=== PATIENT | female | born 1950 | race African-American/Black ===

== ENCOUNTER 2024-03-21 22:17 | Inpatient (IN) | payer OTHER ==
[~2024-03-21] VITALS: Ht 167.6 cm; Wt 88.9 kg
[~2024-03-21 22:17] MED LIST: AMLO1TAB21 PO; ATOR80TA PO; CLOP75TA28 PO; PANT40TA2 PO; SERT-160 PO
[2024-03-21 22:35] VITALS: PULSE 98; RESP 18; O2SAT 98
--- NOTE | 2024-03-21 22:36 | ED.PDOC ---
SOB-HPI HPI Comments 73-year-old female who came to ER via EMS for chest pains. Patient does have history of hypertension, diabetes, and CVA. States since last night, she has been having intermittent episodes of substernal chest pains, nonradiating, associated shortness of breath, abdominal pain. Upon arrival saturating at 75% on room air, patient was given albuterol Atrovent nebulization patient provided his slight relief. 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 Family History Family History: Reviewed,noncontributory to illness Social History Smoker: Non-Smoker Alcohol: Denies ETOH Use Drugs: Denies Drug Use Lives In: Home Constitutional: denies: chills, diaphoresis, fatigue, fever, malaise, sweats, weakness, others EENTM: denies: blurred vision, double vision, ear bleeding, ear discharge, ear drainage, ear pain, ear ringing, eye pain, eye redness, hearing loss, mouth pain, mouth swelling, nasal discharge, nose bleeding, nose congestion, nose pain, photophobia, tearing, throat pain, throat swelling, voice changes, others Respiratory: reports: SOB at rest, shortness of breath; denies: cough, hemoptysis, orthopnea, SOB with excertion, stridor, wheezing, others Cardiovascular: reports: chest pain; denies: dizzy spells, diaphoresis, Dyspnea on exertion, edema, irregular heart beat, left arm pain, lightheadedness, palpitations, PND, syncope, others Gastrointestinal: reports: abdominal pain; denies: abdomen distended, blood streaked bowels, constipated, diarrhea, dysphagia, difficulty swallowing, hematemesis, melena, nausea, poor appetite, poor fluid intake, rectal bleeding, rectal pain, vomiting, others Genitourinary: denies: abnormal vagina bleeding, burning, dyspareunia, dysuria, flank pain, frequency, hematuria, incontinence, pain, , vagina discharge, urgency, others Neurological: denies: dizziness, fainting, headache, left sided numbness, left sided weakness, numbness, paresthesia, pre-existing deficit, right sided numbness, right sided weakness, seizure, speech problems, tingling, tremors, weakness, others Musculoskeletal: denies: back pain, gout, joint pain, joint swelling, muscle pain, muscle stiffness, neck pain, others Integumetry: denies: bruises, change in color, change in hair/nails, dryness, laceration, lesions, lumps, rash, wounds, others Allergic/Immunocompromised: denies: Difficulty Healing, Frequent Infections, Hives, Itching, others Hematologic/Lymphatic: denies: anemia, blood clots, easy bleeding, easy bruising, swollen glands, others Endocrine: denies: excessive hunger, excessive sweating, excessive thirst, excessive urination, flushing, intolerance to cold, intolerance to heat, unexplained weight gain, unexplained weight loss, others Psychiatric: denies: anxiety, bipolar disorder, depression, hopeless, panic disorder, schizophrenia, sleepless, suicidal, others Physical Exam General Appearance: No Apparent Distress, Normal HEENT: Normal ENT Inspection, Pharynx Normal, TMs Normal Neck: Full Range of Motion, Non-Tender, Normal, Normal Inspection Respiratory: Chest Non-Tender, Decreased Breath Sounds, No Accessory Muscle Use, Respiratory Distress Cardiovascular: No Edema, No JVD, No Murmur, No Gallop, Normal Peripheral Pulses, Regular Rate/Rhythm Breast Exam: Deferred Gastrointestinal: No Organomegaly, Non Tender, No Pulsatile Mass, Normal Bowel Sounds, Soft Genitalia: Deferred Pelvic: Deferred Rectal: Deferred Extremities: No calf tenderness, Normal capillary refill, Normal inspection, N ormal range of motion, Non-tender, No pedal edema Musculoskeletal : Apperance: Normal Neurologic: Alert, spinner continuous II-XII nml as Tested, No Motor Deficits, Normal Affect, Normal Mood, No Sensory Deficits Cerebellar Function: Normal Reflexes: Normal Skin: Dry, Normal Color, Warm Lymphatic: No Adenopathy Was a procedure done? Was a procedure done?: No Differential Dx Differential Diagnosis: Asthma, Bronchitis, CHF, COPD, Myocardial infarction, Panic Attack, Pneumonia, Respiratory Distress, URI X-Ray, Labs, Meds, VS Vital Signs Date Time Temp Pulse Resp B/P (MAP) Pulse Ox O2 Delivery O2 Flow Rate FiO2 03/22/24 01:55 94 18 116/75 03/22/24 01:38 102 22 116/75 03/22/24 01:17 116/75 03/22/24 01:00 100 22 116/75 (89) 97 03/22/24 00:58 94 03/21/24 23:06 98 20 101/59 (73) 95 03/21/24 22:35 98 18 98 Nasal Cannula* 6 44 03/21/24 22:35 97.9 98 18 105/52 (69) 98 97.9 03/21/24 22:20 98.7 105 24 125/74 (91) 89 03/21/24 22:17 108 Lab Test 03/22/24 01:25 03/22/24 00:26 03/21/24 23:40 03/21/24 23:22 Range/Units Troponin I High Sensitivity Pending 460 *H </=34 ng/L B-Type Natriuretic Peptide Pending Blood Gas Specimen Type Venous Blood Gas Sample Site Vbg - n/a Blood Gas Patient Temperature 37.0 Arterial Blood Date Drawn [id number] Temo Test N/a Venous Blood pH 7.368 7.320-7.430 Venous Blood pCO2 at Patient Temp 39.1 38.0-54.0 mmHg Venous Blood pO2 at Patient Temp < 36.5 23.0-48.0 mmHg Venous Blood HCO3 22.0 22.0-29.0 mmol/L Venous Blood Base Excess -3.0 L -2.0-3.0 mmol/L Blood Gas Modality Oxymizer FiO2 % 100.0 Urine Color Yellow Yellow Urine Clarity Clear Clear Urine pH 5.5 5.0-9.0 Urine Specific [place] 1.029 1.001-1.035 Urine Protein Trace H Negative Urine Ketones 1+ H Negative Urine Blood Negative Negative /uL Urine Nitrite Negative Negative Urine Bilirubin Negative Negative Urine Urobilinogen Normal Negative mg/dL Urine Leukocyte Esterase Negative Negative /uL Urine RBC 1 0 - 4 /hpf Urine WBC <1 0 - 5 /hpf Urine Squamous Epithelial Cells Few <5 /hpf Urine Calcium Oxalate Crystals Few None Seen Urine Bacteria None seen None Seen /hpf Urine Hyaline Casts Few 0 - 2 /lpf Urine Mucus Few None Seen Urine Glucose Normal Normal mg/dL Test 03/21/24 22:27 Range/Units White Blood Count 9.3 4.4-10.8 10^3/uL Red Blood Count 4.54 4.0-5.20 10^6/uL Hemoglobin 12.5 12.2-16.2 g/dL Hematocrit 38.8 36.0-46.0 % Mean Corpuscular Volume 85.5 80.0-100.0 fL Mean Corpuscular Hemoglobin 27.4 L 28.0-32.0 pg Mean Corpuscular Hemoglobin Concent 32.1 32.0-36.0 g/dL Red Cell Distribution Width 18.2 H 11.8-14.3 % Platelet Count 141 140-450 10^3/uL Mean Platelet Volume 8.1 6.9-10.8 fL Neutrophils (%) (Auto) 68.5 37.0-80.0 % Lymphocytes (%) (Auto) 22.5 10.0-50.0 % Monocytes (%) (Auto) 7.5 0.0-12.0 % Eosinophils (%) (Auto) 1.0 0.0-7.0 % Basophils (%) (Auto) 0.5 0.0-2.0 % Neutrophils # (Auto) 6.4 1.6-8.6 10 ^3/uL Lymphocytes # (Auto) 2.1 0.4-5.4 10 ^3/uL Monocytes # (Auto) 0.7 0-1.3 10 ^3/uL Eosinophils # (Auto) 0.1 0-0.8 10 ^3/uL Basophils # (Auto) 0 0-0.2 10 ^3/uL Nucleated Red Blood Cells 0.1 % Sodium Level 143 136-145 mmol/L Potassium Level 3.6 3.5-5.1 mmol/L Chloride Level 105 98-107 mmol/L Carbon Dioxide Level 26 20-31 mmol/L Anion Gap 12 5-15 Blood Urea Nitrogen 15 9-23 mg/dL Creatinine 1.55 H 0.550-1.02 mg/dL Glomerular Filtration Rate Calc 36 >90 mL/min BUN/Creatinine Ratio 9.7 L 10.0-20.0 Serum Glucose 127 H 74-106 mg/dL Calcium Level 11.3 H 8.7-10.4 mg/dL Total Bilirubin 0.5 0.2-1.0 mg/dL Aspartate Amino Transferase (AST) 15 13-40 U/L Alanine Aminotransferase (ALT) 19 7-40 U/L Alkaline Phosphatase 90 46-116 U/L Troponin I High Sensitivity 519 *H </=34 ng/L Total Protein 7.1 5.7-8.2 g/dL Albumin 4.3 3.2-4.8 g/dL Current Medications Medications (Trade) Dose Ordered Sig/Shawn Route Start Time Stop Time Status Last Admin Furosemide (Lasix Injection) 40 mg ONCE ONCE IV 03/22/24 01:15 03/22/24 01:16 DC 03/22/24 01:17 Morphine Sulfate 4 mg ONCE ONCE IV 03/22/24 01:30 03/22/24 01:32 DC 03/22/24 01:38 Ondansetron HCl (Zofran) 4 mg ONCE ONCE IV 03/22/24 01:30 03/22/24 01:32 DC 03/22/24 01:38 Time of 1ST Reevaluation: 22:31 Reevaluation 1ST: Unchanged Patient Education/Counseling: Diagnosis, Treatment Family Education/Counseling: No Family Present Departure 1 Departure Time of Disposition: 02:03 (Section Authorization [id number] by Dr Elder for admission here at [facility].Patient presented with chest pain that was concerning for possible STEMI, ACS, PE, Pneumonia, Muscle Strain, COPD, Dissection. Data: 1. I ordered and reviewed the result of at least 3 labs including a CBC, BMP, and Troponin. 2. I independently interpreted the following tests: EKG which shows sinus arrhythmia and Chest X-ray which shows vascular congestion.Risk:This patient has a high risk of morbidity due to further diagnostic testing or treatment and may suffer from an acute cardiac or respiratory disorder. Workup reveals NSTEMI and concern for CHF and patient should be admitted for further workup and possible expert consultation. ) Impression: Primary Impression: Acute chest pain Additional Impressions: Dyspnea Qualified Codes: R06.02 - Shortness of breath NSTEMI (non-ST elevated myocardial infarction) Disposition: 09 ADMITTED INPATIENT Admit to: Med Surg Condition: Serious Critical Care Note Critical Care Time?: Yes (35 min-critical care time only) Critical care comment: Acute chest pain Authorized and Performed by: Dmitry Francis MD Total critical care time: Approximately 36 minutes Due to a high probability of clinically significant, life threatening deterioration, the patient required my highest level of preparedness to intervene emergently and I personally spent this critical care time directly and personally managing the patient. This critical care time included obtaining a history; examining the patient; pulse oximetry; ordering and review of studies; arranging urgent treatment with development of a management plan; evaluation of patient's response to treatment; frequent reassessment; and, discussions with other providers. This critical care time was performed to assess and manage the high probability of imminent, life-threatening deterioration that could result in multi-organ failure. It was exclusive of separately billable procedures and treating other p atients and teaching time. Please see my other sections and the rest of the note for further information on patient assessment and treatment. Stability Stability form required: No Heart Score Heart Score: Heart Score Response (Comments) Value History Moderate Suspicious 1 EKG Repolarization Disturb 1 Age >65 2 Risk Factors >3 or Hx ASHD 2 Troponin Normal limit 0 Total 6 I personally scribed for DMITRY FRANCIS MD ([email or web address]) on 03/21/24 at 22:36. Electronically submitted by Krystian Portillo ([email or web address]). DMITRY FRANCIS MD Mar 21, 2024 22:36
[2024-03-21 22:41] LABS: Basophils # (auto) 0 10 ^3/uL (0-0.2); Basophils % (auto) 0.5 % (0.0-2.0); Eosinophils # (auto) 0.1 10 ^3/uL (0-0.8); Hematocrit 38.8 % (36.0-46.0); Hemoglobin 12.5 g/dL (12.2-16.2); Lymphocytes # (auto) 2.1 10 ^3/uL (0.4-5.4); Lymphocytes % (auto) 22.5 % (10.0-50.0); Mean Corpuscular Hemoglobin 27.4 pg (28.0-32.0); Mean Corpuscular Hgb Conc. 32.1 g/dL (32.0-36.0); Mean Corpuscular Volume 85.5 fL (80.0-100.0); Monocytes # (auto) 0.7 10 ^3/uL (0-1.3); Monocytes % (auto) 7.5 % (0.0-12.0); Neutrophils # (auto) 6.4 10 ^3/uL (1.6-8.6); Neutrophils % (auto) 68.5 % (37.0-80.0); Nucleated Red Blood Cells % 0.1 %; Platelet Count (auto) 141 10^3/uL (140-450); Red Blood Cells 4.54 10^6/uL (4.0-5.20); Red Cell Distribution Width 18.2 % (11.8-14.3); White Blood Cell 9.3 10^3/uL (4.4-10.8)
[2024-03-21 22:57] LABS: Alanine Aminotransferase 19 U/L (7-40); Albumin 4.3 g/dL (3.2-4.8); Alkaline Phosphatase 90 U/L (46-116); Anion Gap 12 (5-15); Aspartate Aminotransferase 15 U/L (13-40); BUN/Creatinine Ratio 9.7 (10.0-20.0); Blood Urea Nitrogen 15 mg/dL (9-23); Carbon Dioxide 26 mmol/L (20-31); Chloride 105 mmol/L (98-107); Potassium 3.6 mmol/L (3.5-5.1); Sodium 143 mmol/L (136-145)
[2024-03-21 22:58] LABS: Bilirubin, Total 0.5 mg/dL (0.2-1.0); Total Protein 7.1 g/dL (5.7-8.2)
[2024-03-21 22:59] LABS: Calcium 11.3 mg/dL (8.7-10.4); Glucose 127 mg/dL (74-106)
[2024-03-22] VITALS (11 sets, daily range): BP systolic 113–142; BP diastolic 70–79; PULSE 80–100; RESP 16–28; TEMP 98.4; O2SAT 87–100
[2024-03-22 00:06] LABS: Urine Bacteria None Seen /hpf (None Seen)
--- NOTE | 2024-03-22 00:08 | ECG ---
[facility] Test Date: 2024-03-21 Test Time: 22:16:56 Pat Name: MARZENA CANTOR Department: ER Room: [address] [place] [address] Gender: F Air Conditioning Engineer: ER : 1950 Requested By: DMITRY CONDON Order Number: [id number] Reading MD: Pawan Mattson Measurements Intervals [place] Rate: 108 P: 56 SD: 146 QRS: 23 QRSD: 81 T: 28 QT: 349 QTc: 468 Interpretive Statements Sinus tachycardia Multiform ventricular premature complexes Aberrant conduction of SV complex(es) Probable left atrial enlargement Abnormal R-wave progression, late transition Inferior infarct, acute (LCx) Electronically Signed On 03-28-2024 12:15:38 PST by Pawan Mattson Please click the below link to view image of tracing.
--- NOTE | 2024-03-22 00:09 | DVH ---
EXAM: XY CHEST PORTABLE CLINICAL HISTORY: sob TECHNIQUE: Single AP view of the chest WID: COMPARISON: None FINDINGS: Lines and tubes: None Chest: There is mild cardiomegaly and pulmonary vascular congestion. No pleural effusion, pneumothorax, or consolidation. The osseous structures are grossly intact. IMPRESSION: Mild cardiomegaly and mild pulmonary vascular congestion.
[2024-03-22 00:56] LABS: Urine Blood Negative /uL (Negative); Urine Clarity Clear (Clear); Urine Color Yellow (Yellow); Urine Hyaline Cast FEW /lpf (0 - 2); Urine Mucus FEW (None Seen); Urine Protein, UAD TRACE (Negative); Urine Specific Gravity 1.029 (1.001-1.035); Urine Urobilinogen Normal (Negative); Urine WBC <1 /hpf (0 - 5); Urine pH 5.5 (5.0-9.0)
[2024-03-22] MEDS: FUROSEMIDE 40 MG/4 ML VIAL IV ONE (01:17)
[2024-03-22] MEDS: MORPHINE SULFATE 4 MG/ML SYR/VIAL IV ONE (01:38)
[2024-03-22] MEDS: IPRATROPIUM BROM 0.5 MG/2.5ML INH SOL ONE (01:38)
[2024-03-22] MEDS: ONDANSETRON HCL 4 MG/2 ML VIAL IV ONE ×2 (01:38→18:18)
[2024-03-22] MEDS: ALBUTEROL SULF 2.5 MG/0.5ML(0.5%) NEB SOLN ONE (01:38)
[2024-03-22] MEDS: IPRATROPIUM BROM 0.5 MG/2.5ML INH SOL NEB ONE (01:42)
[2024-03-22] MEDS: ALBUTEROL SULF 2.5 MG/0.5ML(0.5%) NEB SOLN NEB ONE (01:42)
[2024-03-22] MEDS ORDERED: ACETAMINOPHEN 325 MG TAB PO PRN (02:30)
[2024-03-22] MEDS ORDERED: DOCUSATE SOD 100 MG CAP PO PRN (02:30)
[2024-03-22] MEDS: ASPirin 81 mg TAB PO ONE (02:50)
--- NOTE | 2024-03-22 02:55 | DVHHP2 ---
History of Present Illness Reason for Visit: Acute chest pain History of Present Illness The patient is a 73-year-old female with past medical history of diabetes mellitus, hyperlipidemia, hypertension, and CVA with left-sided residual presented to [facility] ED with complaint of chest pain. Patient reports symptoms progressively get worse with nonradiating substernal chest, abdominal pain, associated shortness of breath, getting worse that prompted this visit. Patient was seen and evaluated in the ED, laboratory data shows WBC 9.3, platelets 141, sodium 143, potassium 3.6, BUN 15, creatinine 1.55, glucose 127, calcium 11.3, BNP 463.70, troponin 568. Chest x-ray revealing mild cardiomegaly and mild pulmonary vascular congestion. Patient was given IV Lasix, breathing treatment, please see medication orders section in the computer. On my assessment, patient denied chest pain at this moment, no headache, no dizziness, no diaphoresis, no shortness of breath, no nausea, no vomiting, no fever, no chills. Patient was admitted for further evaluation and medical management. Past Medical History CVA (Left-sided residual), DM, HTN, HLD Past Surgical History Denies all surgeries Family History Reviewed, noncontributory to the management of this case. Past Social History The patient lives at home, denies smoking, alcohol or illicit drugs abuse. Review of Systems Constitutional: Yes: Weakness; No: Fever, Chills, Sweats, Malaise, Other Eyes: No: Pain, Vision change, Conjunctivae inflammation, Eyelid inflammation, Other, Redness ENT: No: Ear pain, Ear discharge, Nose pain, Nose discharge, Nose congestion, Mouth pain, Mouth swelling, Throat pain, Throat swelling, Other Respiratory: Shortness of breath, Other (SOB at rest); No: Cough, Dry, SOB with excertion, Wheezing, Hemoptysis, Pleuritic Pain, Sputum, Wheezing Cardiovascular: Chest Pain; No: Palpitations, Orthopnea, Paroxysmal Noc. Dyspnea, Edema, Lt Headedness, Other Gastrointestinal: Abdominal Pain; No: Nausea, Vomiting, Diarrhea, Constipation, Melena, Hematochezia, Other Genitourinary: No Dysuria, No Frequency, No Incontinence, No Hematuria, No Retention, No Other Musculoskeletal: No: other, neck pain, shoulder pain, arm pain, back pain, hand pain, leg pain, foot pain Skin: No: Rash, Lesions, Jaundice, Bruising, Other Neurological: No: Weakness, Numbness, Incoordination, Change in speech, Confusion, Seizures, Other Allergies: Coded Allergies: NO KNOWN ALLERGIES (Unverified , 03/21/24) Medications Current Medications Medications Dose Ordered Sig/Shawn Route Start Time Stop Time Status Last Admin Dose Admin Albuterol 2.5 mg Q4HPRN PRN NEB 03/22/24 02:30 Ipratropium [place] 0.5 mg Q4HPRN PRN NEB 03/22/24 02:30 Furosemide 40 mg DAILY IV 03/22/24 10:00 Atorvastatin Calcium 40 mg HS PO 03/22/24 22:00 Carvedilol 3.125 mg Q12HR PO 03/22/24 10:00 Clopidogrel Bisulfate 75 mg DAILY PO 03/22/24 10:00 Aspirin 81 mg DAILY PO 03/22/24 10:00 Sodium Chloride 10 ml Q8HR IV 03/22/24 06:00 Acetaminophen/ Hydrocodone Bitart 1 tab Q4HP PRN PO 03/22/24 02:30 Ondansetron HCl 4 mg Q4HP PRN IV 03/22/24 02:30 Docusate Sodium 100 mg BIDPRN PRN PO 03/22/24 02:30 Acetaminophen 650 mg Q6HP PRN PO 03/22/24 02:30 Exam Vital Signs Vital Signs Date Time Temp Pulse Resp B/P (MAP) Pulse Ox O2 Delivery O2 Flow Rate FiO2 03/22/24 02:03 99 03/22/24 01:55 18 116/75 03/22/24 01:00 97 03/21/24 22:35 Nasal Cannula* 6 44 03/21/24 22:35 97.9 97.9 General Appearance: Alert, Oriented X3, Cooperative, No acute distress Respiratory: Clear to auscultation, Normal air movement Cardiovascular: Regular rate, Normal S1, Normal S2, No murmurs Abdominal: Normal bowel sounds, Soft, No tenderness, No hepatospenomegaly, No masses Extremities: No clubbing, No cyanosis, No edema, Normal pulses, No tenderness/swelling Skin: No rashes, No breakdown, No significant lesion Neuro: Normal speech, Normal tone, Sensation intact, Cranial nerves 3-12 NL, Reflexes 2+, Other (Generalized weakness) Psych/Mental Status: Mental status NL, Mood NL Labs/Xrays Labs Test 03/22/24 01:25 03/22/24 00:26 03/21/24 23:40 03/21/24 22:27 Range/Units Troponin I High Sensitivity 568 *H </=34 ng/L B-Type Natriuretic Peptide 463.70 0-100 pg/mL Blood Gas Specimen Type Venous Blood Gas Sample Site Vbg - n/a Blood Gas Patient Temperature 37.0 Arterial Blood Date Drawn [id number] Temo Test N/a Venous Blood pH 7.368 7.320-7.430 Venous Blood pCO2 at Patient Temp 39.1 38.0-54.0 mmHg Venous Blood pO2 at Patient Temp < 36.5 23.0-48.0 mmHg Venous Blood HCO3 22.0 22.0-29.0 mmol/L Venous Blood Base Excess -3.0 L -2.0-3.0 mmol/L Blood Gas Modality Oxymizer FiO2 % 100.0 Urine Color Yellow Yellow Urine Clarity Clear Clear Urine pH 5.5 5.0-9.0 Urine Specific [place] 1.029 1.001-1.035 Urine Protein Trace H Negative Urine Ketones 1+ H Negative Urine Blood Negative Negative /uL Urine Nitrite Negative Negative Urine Bilirubin Negative Negative Urine Urobilinogen Normal Negative mg/dL Urine Leukocyte Esterase Negative Negative /uL Urine RBC 1 0 - 4 /hpf Urine WBC <1 0 - 5 /hpf Urine Squamous Epithelial Cells Few <5 /hpf Urine Calcium Oxalate Crystals Few None Seen Urine Bacteria None seen None Seen /hpf Urine Hyaline Casts Few 0 - 2 /lpf Urine Mucus Few None Seen Urine Glucose Normal Normal mg/dL White Blood Count 9.3 4.4-10.8 10^3/uL Red Blood Count 4.54 4.0-5.20 10^6/uL Hemoglobin 12.5 12.2-16.2 g/dL Hematocrit 38.8 36.0-46.0 % Mean Corpuscular Volume 85.5 80.0-100.0 fL Mean Corpuscular Hemoglobin 27.4 L 28.0-32.0 pg Mean Corpuscular Hemoglobin Concent 32.1 32.0-36.0 g/dL Red Cell Distribution Width 18.2 H 11.8-14.3 % Platelet Count 141 140-450 10^3/uL Mean Platelet Volume 8.1 6.9-10.8 fL Neutrophils (%) (Auto) 68.5 37.0-80.0 % Lymphocytes (%) (Auto) 22.5 10.0-50.0 % Monocytes (%) (Auto) 7.5 0.0-12.0 % Eosinophils (%) (Auto) 1.0 0.0-7.0 % Basophils (%) (Auto) 0.5 0.0-2.0 % Neutrophils # (Auto) 6.4 1.6-8.6 10 ^3/uL Lymphocytes # (Auto) 2.1 0.4-5.4 10 ^3/uL Monocytes # (Auto) 0.7 0-1.3 10 ^3/uL Eosinophils # (Auto) 0.1 0-0.8 10 ^3/uL Basophils # (Auto) 0 0-0.2 10 ^3/uL Nucleated Red Blood Cells 0.1 % Sodium Level 143 136-145 mmol/L Potassium Level 3.6 3.5-5.1 mmol/L Chloride Level 105 98-107 mmol/L Carbon Dioxide Level 26 20-31 mmol/L Anion Gap 12 5-15 Blood Urea Nitrogen 15 9-23 mg/dL Creatinine 1.55 H 0.550-1.02 mg/dL Glomerular Filtration Rate Calc 36 >90 mL/min BUN/Creatinine Ratio 9.7 L 10.0-20.0 Serum Glucose 127 H 74-106 mg/dL Calcium Level 11.3 H 8.7-10.4 mg/dL Total Bilirubin 0.5 0.2-1.0 mg/dL Aspartate Amino Transferase (AST) 15 13-40 U/L Alanine Aminotransferase (ALT) 19 7-40 U/L Alkaline Phosphatase 90 46-116 U/L Total Protein 7.1 5.7-8.2 g/dL Albumin 4.3 3.2-4.8 g/dL PATIENT: MARZENA CANTOR ACCT: [id number] UNIT: [id number] : 1950 LOC: ER ROOM / BED: / AGE / SEX: 73 / F ADM STATUS: REG ER SERVICE [id number] ORDERING PHYSICIAN: DMITRY CONDON MD PROCEDURE(s): CXRP - CHEST PORTABLE REASON: sob ORDER NUMBER(s): [id number], ACCESSION NUMBER(s): [id number] EXAM: XY CHEST PORTABLE CLINICAL HISTORY: sob TECHNIQUE: Single AP view of the chest WID: COMPARISON: None FINDINGS: Lines and tubes: None Chest: There is mild cardiomegaly and pulmonary vascular congestion. No pleural effusion, pneumothorax, or consolidation. The osseous structures are grossly intact. IMPRESSION: Mild cardiomegaly and mild pulmonary vascular congestion. Assessment/Plan Assessment/Plan Acute chest pain Acute respiratory distress Acute renal injury NSTEMI (non-ST elevated myocardial infarction) Acute exacerbation of congestive heart failure Plan 1. Admit to telemetry unit 2. Breathing treatment 3. Pain control management 4. Management of fluids and electrolytes 5. Consultation for Cardiology 6. Diagnostic tests chest x-ray 7. DVT prophylaxis-on aspirin 8. Repeat labs CBC, CMP in a.m. 9. Continue with current medical management 10. Treatment plan discussed with patient and RN. Patient verbalized understanding. Plan discussed with: Patient, Other (RN) My Orders Orders - DURAN COUGHLIN DNP Procedure Category Date Status Time Complete Blood Count LAB 03/22/24 Logged 04:00 Comprehensive LAB 03/22/24 Logged Metabolic Panel 04:00 Albuterol Medneb PHA 03/22/24 In Process (Ventolin Medneb) 02:30 Ipratropium Medneb PHA 03/22/24 In Process (Atrovent Medneb) 02:30 Furosemide Injection PHA 03/22/24 In Process (Lasix Injection) 10:00 Atorvastatin (Lipitor) PHA 03/22/24 In Process 22:00 Carvedilol Tablet PHA 03/22/24 In Process (Coreg Tablet) 10:00 Clopidogrel Bisulfate PHA 03/22/24 In Process (Plavix) 10:00 Aspirin Tablet PHA 03/22/24 In Process 10:00 * Cardiology Consult CONS 03/22/24 Transmitted 02:28 Allergies WIL 03/22/24 In Process 02:28 Code Status CODE 03/22/24 Transmitted 02:28 Sodium Chloride Lock PHA 03/22/24 In Process (Saline Lock Ns) 06:00 Oxygen Per Hour RT 03/22/24 Transmitted 02:28 Hydrocodone-Acet PHA 03/22/24 In Process 5/325mg Tab (Ary 02:30 Ondansetron Hcl PHA 03/22/24 In Process (Zofran) 02:30 Docusate Sodium PHA 03/22/24 In Process Capsule (Colace 02:30 Complete Blood Count LAB 03/23/24 Verified 04:00 Comprehensive LAB 03/23/24 Verified Metabolic Panel 04:00 Cardiac DIET 03/22/24 Transmitted Diet-2gna,Lofat,Lochol Breakfast Condition: Serious WIL 03/22/24 In Process 02:28 Acetaminophen Tablet PHA 03/22/24 In Process (Tylenol Tablet) 02:30 Bedrest With Bathroom WIL 03/22/24 In Process Privileg 02:28 Sequential WIL 03/22/24 In Process Compression Device Echo 2d Mode Cardiac US 03/22/24 Logged DOP 02:28 Troponin-I Hs LAB 03/22/24 Logged 02:28 Troponin-I Hs LAB 03/22/24 Logged 05:28 Problem List: (1) Acute chest pain (2) Acute respiratory distress (3) Acute renal injury (4) NSTEMI (non-ST elevated myocardial infarction) (5) Acute exacerbation of congestive heart failure Date of Service: Mar 22, 2024 Billing Provider: DURAN COUGHLIN DNP Common Visit Codes: 98796-PTNFMTE INP/OBS CARE (HIGH) DURAN COUGHLIN DNP Mar 22, 2024 02:55
[2024-03-22] MEDS ORDERED: NITROGLYCERIN 0.4 MG SL TAB SL PRN (03:00)
[2024-03-22] MEDS: IOHEXOL 350 MG/ML 100ML IJ ONE (03:13)
[2024-03-22 03:15] LABS: Basophils # (auto) 0 10 ^3/uL (0-0.2); Basophils % (auto) 0.3 % (0.0-2.0); Eosinophils # (auto) 0 10 ^3/uL (0-0.8); Eosinophils % (auto) 0.4 % (0.0-7.0); Hemoglobin 11.6 g/dL (12.2-16.2); Lymphocytes % (auto) 10.6 % (10.0-50.0); Mean Corpuscular Hemoglobin 28.1 pg (28.0-32.0); Mean Corpuscular Hgb Conc. 33.2 g/dL (32.0-36.0); Mean Corpuscular Volume 84.5 fL (80.0-100.0); Monocytes # (auto) 0.6 10 ^3/uL (0-1.3); Monocytes % (auto) 6.7 % (0.0-12.0); Neutrophils # (auto) 7.7 10 ^3/uL (1.6-8.6); Nucleated Red Blood Cells % 0.1 %; Platelet Count (auto) 133 10^3/uL (140-450); Red Blood Cells 4.15 10^6/uL (4.0-5.20); Red Cell Distribution Width 17.3 % (11.8-14.3); White Blood Cell 9.4 10^3/uL (4.4-10.8)
[2024-03-22 03:26] LABS: INR 1.18 (0.9-1.15); Prothrombin Time 12.4 sec (9.3-11.8)
[2024-03-22 03:28] LABS: Alanine Aminotransferase 18 U/L (7-40); Albumin 4.3 g/dL (3.2-4.8); Alkaline Phosphatase 85 U/L (46-116); Anion Gap 10 (5-15); Aspartate Aminotransferase 14 U/L (13-40); BUN/Creatinine Ratio 9.9 (10.0-20.0); Bilirubin, Total 0.4 mg/dL (0.2-1.0); Blood Urea Nitrogen 15 mg/dL (9-23); Carbon Dioxide 25 mmol/L (20-31); Chloride 107 mmol/L (98-107); Potassium 3.7 mmol/L (3.5-5.1); Sodium 142 mmol/L (136-145)
[2024-03-22 03:29] LABS: Total Protein 6.7 g/dL (5.7-8.2)
[2024-03-22] MEDS: MORPHINE SULFATE INJ 2 MG/ml SYRG IV PRN (03:29)
[2024-03-22 03:55] LABS: Calcium 10.7 mg/dL (8.7-10.4); Glucose 143 mg/dL (74-106)
[2024-03-22] MEDS ORDERED: HEPARIN DRIP/D5W 100UNITS/ML 250 ML IV SCH (04:45)
[2024-03-22] MEDS: HEPARIN SODIUM (PORCINE) 5000 UNITS/ML 1ML VIAL IV ONE (04:51)
--- NOTE | 2024-03-22 04:52 | DVH ---
Procedure: CT CT ANGIO CHEST CONTRAST Reason for study/Clinical History: chest pain, sob Comparison Study: Chest x-ray 05/22/2023 Exam Date: 03/22/2024 03:11 AM Radiation Dose Information: CT Dose: CTDI volume is 28.7 mGy. Dose-length product is 2414.82 mGy*cm Contrast: 100 cc Omnipaque 350 TECHNIQUE: After the uneventful administration of intravenous contrast intravenously, CT angiography of the chest per pulmonary embolism protocol imaging was performed through the chest. Coronal and sag ittal reformations were performed by the technologist. MIP reformatted images were obtained and revie wed. All CT scans at this medical facility are performed using dose modulation techniques as appropriate t o a performed exam including the following: Automated exposure control was utilized; adjustment of th e MA and/or KV according to patient size; and use of iterative reconstruction technique. FINDINGS: The thyroid gland is massively enlarged extending into the neck and substernally with multiple nodule s. The airway appears mildly narrowed. Evaluation of the pulmonary arteries demonstrates multiple filling defects in the right main pulmonar y artery, right upper lobe and right lower lobe segmental and subsegmental branches, and left upper l obe segmental and left lower lobe subsegmental branches compatible with pulmonary embolism. The main pulmonary artery estimates 3.8 cm. RV to LV ratio estimated 1.6 no pericardial effusion. Bibasilar cobb bsegmental atelectasis. Moderate pulmonary vascular congestion. No mediastinal or hilar adenopathy. The thoracic aorta appears normal in course and caliber. There is a moderate to large hiatal hernia. Multiple hepatic hypodensities measuring up to 2.9 cm may represent cysts. The adrenal glands are prominent bilaterally with 1.9 cm left adrenal nodule, appea jeancarlos favors adenoma. There has been prior cholecystectomy. 1.5 cm right renal cyst. There is fullness of the pancreatic head with possible hypodensity of the ventral neck, body. No suspicious osseous lesion. IMPRESSION: 1. Bilateral pulmonary emboli with estimated RV ratio 1.6 and findings of right heart strain. 2. Fullness of the pancreatic neck with possible mass. Dedicated CT or MRI pancreatic protocol is rec ommended when patient is clinically able. 3. Fullness of the bilateral adrenal glands with left adrenal nodule, appearance favors adrenal hyper plasia with adenoma, however attention on abdominal imaging is recommended. 4. Hypodensities within the liver likely represent cysts, however attention on abdominal imaging is r ecommended. Critical findings Critical Result: Pulmonary embolism Findings discussed with DMITRY CONDON at 03/22/2024 07:40 AM, and acknowledged receipt and understandi ng of the findings. ..
[2024-03-22] MEDS: SODIUM CHLOR 0.9% PF (SALINE LOCK) 10ML VIAL/SYR IV SCH (05:39)
--- NOTE | 2024-03-22 05:41 | ECG ---
[facility] Test Date: 2024-03-22 Test Time: 00:58:47 Pat Name: MARZENA CANTOR Department: ER Room: [address] [place] [address] Gender: F [employer]: ER : 1950 Requested By: DMITRY CONDON Order Number: [id number] Reading MD: Pawan Mattson Measurements Intervals Ballinger Rate: 94 P: 47 ND: 143 QRS: 7 QRSD: 95 T: 267 QT: 368 QTc: 461 Interpretive Statements Sinus rhythm Probable left atrial enlargement Probable anterior infarct, age indeterminate Electronically Signed On 03-28-2024 12:17:10 PST by Pawan Mattson Please click the below link to view image of tracing.
[2024-03-22 07:05] LABS: INR 1.27 (0.9-1.15); Prothrombin Time 13.2 sec (9.3-11.8)
[2024-03-22 07:17] LABS: Partial Thromboplastin Time 78.1 SEC (24.5-34.5)
[2024-03-22] MEDS: ONDANSETRON HCL 4 MG/2 ML VIAL IV PRN ×2 (08:41→16:56)
[2024-03-22] MEDS: HEPARIN DRIP/D5W 100UNITS/ML 250 ML IV SCH ×2 (08:45→22:45)
[2024-03-22] MEDS: ALBUTEROL SULF 2.5 MG/0.5ML(0.5%) NEB SOLN NEB PRN (08:50)
[2024-03-22] MEDS: IPRATROPIUM BROM 0.5 MG/2.5ML INH SOL NEB PRN (08:50)
[2024-03-22 09:21] LABS: Base Excess -3.6 mmol/L (-2.0-3.0)
[2024-03-22] MEDS: CALCIUM CARB 500 MG CHEW TAB PO SCH (09:56)
[2024-03-22] MEDS: FUROSEMIDE 40 MG/4 ML VIAL IV SCH (10:49)
[2024-03-22] MEDS: CARVEDILOL 3.125 MG TAB PO SCH (10:49)
[2024-03-22] MEDS: ASPirin 81 mg TAB PO SCH (10:50)
[2024-03-22] MEDS: CLOPIDOGREL BISULFATE 75 MG TAB PO SCH (10:51)
--- NOTE | 2024-03-22 13:04 | DVHPN2 ---
Reviewed: Care Plan, H&P, Labs, Medications, Previous Orders, Radiology Changes from previous H/P or p: No Changes Eyes: No Pain, No Vision change, No Conjunctivae inflammation, No Eyelid inflammation, No Other, No Redness ENT: No Ear pain, No Ear discharge, No Nose pain, No Nose discharge, No Nose congestion, No Mouth pain, No Mouth swelling, No Throat pain, No Throat swelling, No Other Cardiovascular: Chest Pain; No Palpitations, No Orthopnea, No Paroxysmal Noc. Dyspnea, No Edema, No Lt Headedness, No Other Respiratory: No Cough, No Dry; Shortness of breath; No SOB with excertion, No Wheezing, No Hemoptysis, No Pleuritic Pain, No Sputum; Other (SOB at rest) Gastrointestinal: No Nausea, No Vomiting; Abdominal Pain; No Diarrhea, No Constipation, No Melena, No Hematochezia, No Other Genitourinary: No Dysuria, No Frequency, No Incontinence, No Hematuria, No Retention, No Other Musculoskeletal: No other, No neck pain, No shoulder pain, No arm pain, No back pain, No hand pain, No leg pain, No foot pain Skin: No Rash, No Lesions, No Jaundice, No Bruising, No Other Objective Vitals Vital Signs Date Time Temp Pulse Resp B/P (MAP) Pulse Ox O2 Delivery O2 Flow Rate FiO2 03/22/24 12:19 79 112/64 03/22/24 11:03 98.4 16 96 15.0 100 98.4 03/22/24 08:20 Oxymizer Medications Current Medications Medications Dose Ordered Sig/Shawn Route Start Time Stop Time Status Last Admin Dose Admin Albuterol 2.5 mg Q4HPRN PRN NEB 03/22/24 02:30 03/22/24 08:50 2.5 MG Ipratropium [place] 0.5 mg Q4HPRN PRN NEB 03/22/24 02:30 03/22/24 08:50 0.5 MG Furosemide 40 mg DAILY IV 03/22/24 10:00 03/22/24 10:49 40 MG Atorvastatin Calcium 40 mg HS PO 03/22/24 22:00 Carvedilol 3.125 mg Q12HR PO 03/22/24 10:00 03/22/24 10:49 3.125 MG Clopidogrel Bisulfate 75 mg DAILY PO 03/22/24 10:00 Aspirin 81 mg DAILY PO 03/22/24 10:00 Sodium Chloride 10 ml Q8HR IV 03/22/24 06:00 03/22/24 05:39 10 ML Acetaminophen/ Hydrocodone Bitart 1 tab Q4HP PRN PO 03/22/24 02:30 Ondansetron HCl 4 mg Q4HP PRN IV 03/22/24 02:30 03/22/24 08:41 4 MG Docusate Sodium 100 mg BIDPRN PRN PO 03/22/24 02:30 Acetaminophen 650 mg Q6HP PRN PO 03/22/24 02:30 Nitroglycerin 0.4 mg Q5MINP PRN SL 03/22/24 03:00 Morphine Sulfate 2 mg Q30M PRN IV 03/22/24 03:00 03/22/24 08:41 2 MG Calcium Carbonate 500 mg TIDWM PO 03/22/24 08:00 03/22/24 09:56 500 MG Heparin Sodium/ Dextrose 250 ml @ 15 mls/hr [id number] IV 03/22/24 08:30 03/22/24 08:45 15 MLS/HR Laboratory Results Laboratory Tests 03/22/24 02:48 Chemistry Test 03/21/24 22:27 03/22/24 02:48 Albumin 4.3 g/dL (3.2-4.8) 4.3 g/dL (3.2-4.8) Calcium Level 11.3 mg/dL (8.7-10.4) H 10.7 mg/dL (8.7-10.4) H Total Protein 7.1 g/dL (5.7-8.2) 6.7 g/dL (5.7-8.2) Coagulation Test 03/22/24 02:48 03/22/24 05:36 Prothrombin Time 12.4 sec (9.3-11.8) H 13.2 sec (9.3-11.8) H Prothrombin Time INR 1.18 (0.9-1.15) H 1.27 (0.9-1.15) H Activated Partial Thromboplast Time 78.1 SEC (24.5-34.5) *H Cardiac Markers Test 03/22/24 01:25 B-Type Natriuretic Peptide 463.70 pg/mL (0-100) LFT Test 03/21/24 22:27 03/22/24 02:48 Alanine Aminotransferase (ALT) 19 U/L (7-40) 18 U/L (7-40) Alkaline Phosphatase 90 U/L (46-116) 85 U/L (46-116) Aspartate Amino Transferase (AST) 15 U/L (13-40) 14 U/L (13-40) Total Bilirubin 0.5 mg/dL (0.2-1.0) 0.4 mg/dL (0.2-1.0) Urinalysis Test 03/21/24 23:40 Urine Color Yellow (Yellow) Urine Clarity Clear (Clear) Urine pH 5.5 (5.0-9.0) Urine Specific [place] 1.029 (1.001-1.035) Urine Protein Trace (Negative) H Urine Ketones 1+ (Negative) H Urine Blood Negative /uL (Negative) Urine Nitrite Negative (Negative) Urine Bilirubin Negative (Negative) Urine Urobilinogen Normal mg/dL (Negative) Urine Leukocyte Esterase Negative /uL (Negative) Urine RBC 1 /hpf (0 - 4) Urine WBC <1 /hpf (0 - 5) Urine Squamous Epithelial Cells Few /hpf (<5) Urine Calcium Oxalate Crystals Few (None Seen) Urine Bacteria None seen /hpf (None Seen) Urine Hyaline Casts Few /lpf (0 - 2) Urine Mucus Few (None Seen) Urine Glucose Normal mg/dL (Normal) Blood Gas Results Test 03/22/24 00:26 03/22/24 08:47 FiO2 % 100.0 100.0 Arterial Blood pH 7.356 (7.350-7.450) Labs and/or images reviewed: Labs reviewed by me, Image(s) reviewed by me Assessment/Plan Assessment/Plan Acute chest pain rule out coronary artery disease: Troponin 655 Aspirin Plavix therapeutic Lovenox consult for operating theatre technician Dr Schneider ST-elevation [place] Acute respiratory distress Acute renal injury Acute exacerbation of chronic congestive heart failure: Lasix Coreg Hypertension Diabetes Hypercholesterolemia History of CVA Left hemiplegia Time spent 65 minutes Patient is full code Advanced care planning time 20 minutes Patient not stable for transfer to [place] Plan discussed with: Patient My Orders Orders - SABI WYNN MD Procedure Category Date Status Time * Cardiology Consult CONS 03/22/24 Transmitted 12:59 Date of Service: Mar 22, 2024 Billing Provider: SABI WYNN MD Common Visit Codes: [id number] CARE 30-74 MIN SABI WYNN MD Mar 22, 2024 13:04
--- NOTE | 2024-03-22 13:24 | DVHSR ---
APPROVED REPORT EXAM: LIMITED Two-dimensional and M-mode echocardiogram with Doppler and color Doppler. Blood Pressure: 87/59 mmHg INDICATION Elevated BNP RISK FACTORS Height: 5' 6", Weight: 178 DIMENSIONS LVDd3.8 (3.8-5.7cm)LA (2D) (1.9-4.0cm)Aortic Root3.3 (2.0-3.7cm) LVDs2.5 (2.5-4.0cm)LA (MM) (1.9-4.0cm)Aortic Cusp Exc1.5 (1.5-2.0cm) EF (%) 60.0 (55-70%)Rt. Atrium (1.9-4.0cm)Asc. Aorta cm IVSd1.4 (0.7-1.1cm)RV (D) (1.8-2.4cm) PWd1.3 (0.7-1.1cm) Mitral Valve MitralMitral Stenosis E wave0.50m/sMV Mean GR.mmHg A wave0.90m/sMV Peak GR.mmHg E/A ratio0.62D MVAcm2 Aortic Valve Aortic ValveAortic Stenosis V10.70m/Marcia Mean GR.3mmHg V21.10m/Marcia Peak GR.5mmHg LVOT Diameter2.0 (1.8-2.4cm)Doppler AVA2.00cm2 Tricuspid Valve TR Velocity3.40m/s [id number] Other Information Quality : Technically LimitedRhythm : Technically limited study due to body habitus. Conclusion Moderately concentric left ventricular hypertrophy. Normal left ventricular systolic function estima mayte ejection fraction 55%. There is a grade diastolic dysfunction. Severely reduced right ventricular systolic function. Moderate to severely elevated right ventricula r systolic pressure 55 mm of mercury. Mildly dilated right and left atria. Aortic valve is mildly thickened and sclerotic there is mild aortic valve regurgitation. Is mild tricuspid valve regurgitation. There is mild mitral valve regurgitation. The pulmonary valve is grossly normal. No pericardial effusion.
--- NOTE | 2024-03-22 14:52 | DVHINCON2 ---
Date Seen: Mar 22, 2024 Referring Physician Ted Watson Reason for Consultation Chest Pain, Elevated Troponin History of Present Illness 73-year-old female with PMH for HTN, HLD, dm, CVA with residual weakness on Plavix presents to the hospital with chest pain and shortness of breath. Patient states she has been having progressively worsening shortness of breath especially with exertion. Patient also endorses retrosternal, nonradiating, pressure chest pain, increases with inspiration, at times constant and at times and intermittent. Upon evaluation in the ER patient noted to have elevated troponins trending 519, 460, 568, 547, and 655. Creatinine elevated at 1.55. P ro BNP 463. CXR showed mild cardiomegaly with mild pulmonary vascular congestion. CT angio done and showed bilateral pulmonary emboli with findings consistent with right heart strain. CT also shows pancreatic neck with possible mass. EKG reviewed and shows sinus rhythm with nonspecific ST and T-wave abnormality. Past Medical History HTN HLD CVA DM Past Surgical History Denies previous cardiac surgeries Family History Denies pertinent family cardiac history Social History Denies alcohol, tobacco, or illicit drug use. Allergies: Coded Allergies: NO KNOWN ALLERGIES (Unverified , 03/21/24) Current Medications Current Medications Medications (Trade) Dose Ordered Sig/Shawn Route PRN Reason Start Time Stop Time Status Last Admin Albuterol (Ventolin Medneb) 2.5 mg Q4HPRN PRN NEB SHORTNESS OF BREATH 03/22/24 02:30 03/22/24 08:50 Ipratropium [place] (Atrovent Medneb) 0.5 mg Q4HPRN PRN NEB SHORTNESS OF BREATH 03/22/24 02:30 03/22/24 08:50 Furosemide (Lasix Injection) 40 mg DAILY IV 03/22/24 10:00 03/22/24 10:49 Atorvastatin Calcium (Lipitor) 40 mg HS PO 03/22/24 22:00 Carvedilol (Coreg Tablet) 3.125 mg Q12HR PO 03/22/24 10:00 03/22/24 10:49 Clopidogrel Bisulfate (Plavix) 75 mg DAILY PO 03/22/24 10:00 Aspirin 81 mg DAILY PO 03/22/24 10:00 Sodium Chloride (Saline [place]) 10 ml Q8HR IV 03/22/24 06:00 03/22/24 14:17 Acetaminophen/ Hydrocodone Bitart ([place] 5/325MG Tab) 1 tab Q4HP PRN PO MODERATE PAIN (4-6 PAIN SCALE) 03/22/24 02:30 Ondansetron HCl (Zofran) 4 mg Q4HP PRN IV NAUSEA / VOMITING 03/22/24 02:30 03/22/24 14:17 Docusate Sodium (Colace Capsule) 100 mg BIDPRN PRN PO FOR CONSTIPATION 03/22/24 02:30 Acetaminophen (Tylenol Tablet) 650 mg Q6HP PRN PO PAIN SCALE 1-3 OR TEMP>100.4 03/22/24 02:30 Nitroglycerin (Ntrostat Sublingual) 0.4 mg Q5MINP PRN SL FOR CHEST PAIN 03/22/24 03:00 Morphine Sulfate 2 mg Q30M PRN IV FOR CHEST PAIN 03/22/24 03:00 03/22/24 14:17 Heparin Sodium/ Dextrose 250 ml @ 14.58 mls/ hr Q17H9M IV 03/22/24 04:45 03/22/24 08:27 DC Calcium Carbonate (Tums) 500 mg TIDWM PO 03/22/24 08:00 03/22/24 09:56 Heparin Sodium/ Dextrose 250 ml @ 15 mls/hr [id number] IV 03/22/24 08:30 03/22/24 08:45 Morphine Sulfate 4 mg Q4HPRN PRN IV MODERATE PAIN (4-6 PAIN SCALE) 03/22/24 14:30 UNV Ondansetron HCl (Zofran) 4 mg Q4HPRN PRN IV NAUSEA / VOMITING 03/22/24 14:30 UNV Review of Systems Constitutional: No: Fever, Chills, Sweats, , Other positive: Weakness, Malaise Eyes: No: Pain, Vision change, Conjunctivae inflammation, Eyelid inflammation, Other, Redness ENT: No: Ear pain, Ear discharge, Nose pain, Nose discharge, Nose congestion, Mouth pain, Mouth swelling, Throat pain, Throat swelling, Other Respiratory: No: Cough, Dry, , Wheezing, Hemoptysis, Pleuritic Pain, Sputum, Wheezing, Other positive: Shortness of breath, SOB with exertion Cardiovascular: ; No: Palpitations, Orthopnea, Paroxysmal Noc. , Edema, Lt Headedness, Other positive: Chest Pain, Dyspnea Gastrointestinal: No: Nausea, Vomiting, Abdominal Pain, Diarrhea, Constipation, Melena, Hematochezia, Other Genitourinary: No Dysuria, No Frequency, No Incontinence, No Hematuria, No Retention, No Other Musculoskeletal: neck pain; No: other, shoulder pain, arm pain, back pain, hand pain, leg pain, foot pain Skin: No: Rash, Lesions, Jaundice, Bruising, Other Neurological: Other (Dizziness, headache.); No: Weakness, Numbness, Incoordination, Change in speech, Confusion, Seizures Vital Signs Vital Signs Date Time Temp Pulse Resp B/P (MAP) Pulse Ox O2 Delivery O2 Flow Rate FiO2 03/22/24 14:17 82 18 119/73 03/22/24 11:03 98.4 96 15.0 100 98.4 03/22/24 08:20 Oxymizer Physical Exam General appearance: Patient is well-developed, well-nourished, in mild acute distress. HEENT: Exam shows: Normocephalic, atraumatic, PERRLA, EOMI Neck: Supple, no bruits Chest: Equal chest excursion bilaterally. Breath sounds rales/diminished Heart: Rhythm: Regular rate; tachycardia; no murmur or gallop Abdomen: Exam shows: Soft, nontender, nondistended Musculoskeletal: No clubbing, no cyanosis, no lower extremity edema Dermatology: Skin warm, moist. Neurological: Exam shows: Alert and oriented x4, normal speech Available prior records, labs, EKG, rhythm strips reviewed and interpreted Labs/Diagnostic Data Labs Test 03/22/24 08:47 03/22/24 05:36 03/22/24 02:48 03/22/24 01:25 Range/Units Blood Gas Specimen Type Arterial Blood Gas Sample Site Right radial Blood Gas Patient Temperature 37.0 Arterial Blood Date Drawn [id number] Arterial Blood pH 7.356 7.350-7.450 Arterial Blood Partial Pressure CO2 39.3 32.0-45.0 mmHg Arterial Blood Partial Pressure O2 78.1 L 83.0-108.0 mmHg Arterial Blood HCO3 21.5 21.0-28.0 mmol/L Arterial Blood Oxygen Saturation 93.9 L 94.0-98.0 % Arterial Blood Base Excess -3.6 L -2.0-3.0 mmol/L Arterial Blood Oxyhemoglobin 93.1 L 94.0-98.0 % Arterial Blood Carboxyhemoglobin 0.6 0.5-1.5 % Arterial Blood Methemoglobin 0.2 0.0-1.5 % Temo Test Yes Blood Gas Total Hemoglobin 12.70 12.0-16.0 g/dL Blood Gas Liter Flow 15.00 Blood Gas Modality Mask - nrb FiO2 % 100.0 Prothrombin Time 13.2 H 9.3-11.8 sec Prothrombin Time INR 1.27 H 0.9-1.15 Activated Partial Thromboplast Time 78.1 *H 24.5-34.5 SEC Troponin I High Sensitivity 655 *H </=34 ng/L White Blood Count 9.4 4.4-10.8 10^3/uL Red Blood Count 4.15 4.0-5.20 10^6/uL Hemoglobin 11.6 L 12.2-16.2 g/dL Hematocrit 35.0 L 36.0-46.0 % Mean Corpuscular Volume 84.5 80.0-100.0 fL Mean Corpuscular Hemoglobin 28.1 28.0-32.0 pg Mean Corpuscular Hemoglobin Concent 33.2 32.0-36.0 g/dL Red Cell Distribution Width 17.3 H 11.8-14.3 % Platelet Count 133 L 140-450 10^3/uL Mean Platelet Volume 8.3 6.9-10.8 fL Neutrophils (%) (Auto) 82.0 H 37.0-80.0 % Lymphocytes (%) (Auto) 10.6 10.0-50.0 % Monocytes (%) (Auto) 6.7 0.0-12.0 % Eosinophils (%) (Auto) 0.4 0.0-7.0 % Basophils (%) (Auto) 0.3 0.0-2.0 % Neutrophils # (Auto) 7.7 1.6-8.6 10 ^3/uL Lymphocytes # (Auto) 1.0 0.4-5.4 10 ^3/uL Monocytes # (Auto) 0.6 0-1.3 10 ^3/uL Eosinophils # (Auto) 0 0-0.8 10 ^3/uL Basophils # (Auto) 0 0-0.2 10 ^3/uL Nucleated Red Blood Cells 0.1 % Sodium Level 142 136-145 mmol/L Potassium Level 3.7 3.5-5.1 mmol/L Chloride Level 107 98-107 mmol/L Carbon Dioxide Level 25 20-31 mmol/L Anion Gap 10 5-15 Blood Urea Nitrogen 15 9-23 mg/dL Creatinine 1.51 H 0.550-1.02 mg/dL Glomerular Filtration Rate Calc 37 >90 mL/min BUN/Creatinine Ratio 9.9 L 10.0-20.0 Serum Glucose 143 H 74-106 mg/dL Calcium Level 10.7 H 8.7-10.4 mg/dL Total Bilirubin 0.4 0.2-1.0 mg/dL Aspartate Amino Transferase (AST) 14 13-40 U/L Alanine Aminotransferase (ALT) 18 7-40 U/L Alkaline Phosphatase 85 46-116 U/L Total Protein 6.7 5.7-8.2 g/dL Albumin 4.3 3.2-4.8 g/dL B-Type Natriuretic Peptide 463.70 0-100 pg/mL Test 03/22/24 00:26 03/21/24 23:40 Range/Units Venous Blood pH 7.368 7.320-7.430 Venous Blood pCO2 at Patient Temp 39.1 38.0-54.0 mmHg Venous Blood pO2 at Patient Temp < 36.5 23.0-48.0 mmHg Venous Blood HCO3 22.0 22.0-29.0 mmol/L Venous Blood Base Excess -3.0 L -2.0-3.0 mmol/L Urine Color Yellow Yellow Urine Clarity Clear Clear Urine pH 5.5 5.0-9.0 Urine Specific [place] 1.029 1.001-1.035 Urine Protein Trace H Negative Urine Ketones 1+ H Negative Urine Blood Negative Negative /uL Urine Nitrite Negative Negative Urine Bilirubin Negative Negative Urine Urobilinogen Normal Negative mg/dL Urine Leukocyte Esterase Negative Negative /uL Urine RBC 1 0 - 4 /hpf Urine WBC <1 0 - 5 /hpf Urine Squamous Epithelial Cells Few <5 /hpf Urine Calcium Oxalate Crystals Few None Seen Urine Bacteria None seen None Seen /hpf Urine Hyaline Casts Few 0 - 2 /lpf Urine Mucus Few None Seen Urine Glucose Normal Normal mg/dL Assessment * Acute bilateral PE - CT showing findings consistent with right heart strain. Echo reviewed and shows normal EF 55% with diastolic dysfunction. Severely reduced RV systolic function. RVSP of 55 mmHg. Continue anticoagulation with heparin drip. * NSTEMI - type 2 GA in setting of acute PE. Continue heparin drip. EKG with nonspecific ST and T-wave abnormality. Continue on Plavix and statin * MARI on CKD - avoid nephrotoxic agents. Monitor response with Lasix. * HX CVA - continue statin and Plavix. * Acute right-sided heart failure - in setting of PE. RVSP of 55 mm of mercury. Continue supportive care. Lasix 40 mg IV daily. * Possible pancreatic mass on CT, management primary team. * HTN - Stable on Coreg. Case Discussed with Dr Schneider. Acute PE continued on heparin drip. NSTEMI type 2 continue medical management. Follow-up echo shows normal LV EF with severely reduced RV systolic function. Continue supportive care for now. Critical care, time spent: 48 minutes This medical document was created using an electronic medical record system with voice recognition software and computerized dictation system. Although this document has been carefully reviewed, there might still be some phonetic and typographical errors. Occasional wrong-word or ``sound-alike substitutions may have occurred due to the inherent limitations of voice recognition software. These areas are purely typographical due to imperfections of the software programs and do not reflect any compromise in the patient's medical care. Please read the chart carefully and recognize, using context, where these substitutions have occurred. Plan discussed with: Patient Date of Service: Mar 22, 2024 Billing Provider: GISELE SCHNEIDER MD Cardiology Common Codes: [id number] INP/OBS CARE (High), [id number] CARE 30-74 MIN CARLA RODRÍGUEZ [facility] Mar 22, 2024 14:52
[2024-03-22 15:29] LABS: INR 1.16 (0.9-1.15); Partial Thromboplastin Time 67.4 SEC (24.5-34.5); Prothrombin Time 12.2 sec (9.3-11.8)
[2024-03-22 16:25] LABS: Base Excess -0.8 mmol/L (-2.0-3.0)
[2024-03-22] MEDS ORDERED: LORazepam 2MG/ML-1ML VIAL IV PRN (16:45)
[2024-03-22] MEDS: MORPHINE SULFATE 4 MG/ML SYR/VIAL IV PRN (16:57)
[2024-03-22] MEDS: ONDANSETRON HCL 4 MG/2 ML VIAL ONE (16:58)
--- NOTE | 2024-03-22 18:10 | DVHINCON2 ---
Date of service: Mar 22, 2024 Referring Physician Alexy Watson MD Reason for Consultation Hypoxia, acute respiratory distress, pulmonary emboli History of Present Illness A 73-year-old woman with past medical history of diabetes mellitus, hyperlipidemia, hypertension, and CVA with left-sided residual who presented to ED on 03/21/24 with complaint of chest pain and shortness of breath. Patient reported symptoms progressively got worse with nonradiating substernal chest and abdominal pain w/ associated shortness of breath getting worse that prompted this visit. Workup in ED revealed WBC of 9.3, platelets 141, sodium 143, potassium 3.6, BUN 15, creatinine 1.55, glucose 127, calcium 11.3, BNP 463.70, troponin 568. Chest x-ray demonstrated mild cardiomegaly and mild pulmonary vascular congestion. CT angio done and showed bilateral pulmonary emboli with findings consistent with right heart strain. CT also showed pancreatic neck with possible mass. Patient was given IV Lasix and breathing treatment; on subsequent exam pt denied chest pain, headache, dizziness, diaphoresis, shortness of breath. She was admitted for further care and pulmonary consultation is requested for evaluation and management due to these findings. Review of Systems: 14-point review of systems negative unless otherwise noted above. Past Medical History: CVA (left-sided residual), DM, hypertension, hyperlipidemia. Past Surgical History: None. Medications: Reviewed. Allergies: No known drug allergies. Family History: No family history of premature CAD. No family history of lung disorders. Social History: Nonsmoker. No alcohol or illicit drug use. Allergies: Coded Allergies: Sulfamethoxazole w/Trimethoprim (Verified Allergy, Unknown, 03/23/24) Home Meds Reported Medications Pantoprazole Sodium Sesquihydr (Protonix) 40 Mg Tab, 1 TAB PO BID for 100 Days, #200 03/25/24 Atorvastatin Calcium (Lipitor) 80 Mg Tab, 1 TAB PO DAILY for 100 Days, #100 03/25/24 Losartan Potassium (Losartan Potassium) 50 Mg Tab, 1 TAB PO DAILY for 100 Days, #100 03/25/24 Amlodipine Besylate (Amlodipine Besylate) 2.5 Mg Tab, 1 TAB PO DAILY for 100 Days, #100 03/25/24 Clopidogrel Bisulfate (Plavix) 75 Mg Tab, 1 TAB PO DAILY for 100 Days, #100 03/25/24 Sertraline Hcl (Sertraline Hcl) 100 Mg Tab, 1 TAB PO DAILY for 100 Days, #100 03/25/24 Current Medications Current Medications Medications (Trade) Dose Ordered Sig/Shawn Route PRN Reason Start Time Stop Time Status Last Admin Albuterol (Ventolin Medneb) 2.5 mg Q4HPRN PRN NEB SHORTNESS OF BREATH 03/22/24 02:30 03/22/24 08:50 Ipratropium [place] (Atrovent Medneb) 0.5 mg Q4HPRN PRN NEB SHORTNESS OF BREATH 03/22/24 02:30 03/22/24 08:50 Furosemide (Lasix Injection) 40 mg DAILY IV 03/22/24 10:00 03/22/24 15:40 DC 03/22/24 10:49 Atorvastatin Calcium (Lipitor) 40 mg HS PO 03/22/24 22:00 Carvedilol (Coreg Tablet) 3.125 mg Q12HR PO 03/22/24 10:00 03/22/24 10:49 Clopidogrel Bisulfate (Plavix) 75 mg DAILY PO 03/22/24 10:00 Aspirin 81 mg DAILY PO 03/22/24 10:00 Sodium Chloride (Saline Lock Ns) 10 ml Q8HR IV 03/22/24 06:00 03/22/24 14:17 Acetaminophen/ Hydrocodone Bitart ([place] 5/325MG Tab) 1 tab Q4HP PRN PO MODERATE PAIN (4-6 PAIN SCALE) 03/22/24 02:30 Ondansetron HCl (Zofran) 4 mg Q4HP PRN IV NAUSEA / VOMITING 03/22/24 02:30 03/22/24 14:45 DC 03/22/24 14:17 Docusate Sodium (Colace Capsule) 100 mg BIDPRN PRN PO FOR CONSTIPATION 03/22/24 02:30 Acetaminophen (Tylenol Tablet) 650 mg Q6HP PRN PO PAIN SCALE 1-3 OR TEMP>100.4 03/22/24 02:30 Nitroglycerin (Ntrostat Sublingual) 0.4 mg Q5MINP PRN SL FOR CHEST PAIN 03/22/24 03:00 Morphine Sulfate 2 mg Q30M PRN IV FOR CHEST PAIN 03/22/24 03:00 03/22/24 14:17 Heparin Sodium/ Dextrose 250 ml @ 14.58 mls/ hr Q17H9M IV 03/22/24 04:45 03/22/24 08:27 DC Calcium Carbonate (Tums) 500 mg TIDWM PO 03/22/24 08:00 03/22/24 09:56 Heparin Sodium/ Dextrose 250 ml @ 15 mls/hr [id number] IV 03/22/24 08:30 03/22/24 08:45 Morphine Sulfate 4 mg Q4HPRN PRN IV MODERATE PAIN (4-6 PAIN SCALE) 03/22/24 14:30 03/22/24 16:57 Ondansetron HCl (Zofran) 4 mg Q4HPRN PRN IV NAUSEA / VOMITING 03/22/24 14:30 03/22/24 16:56 Furosemide (Lasix Injection) 40 mg DAILY IV 03/23/24 10:00 Lorazepam (Ativan Inj) 1 mg Q8HP PRN IV ANXIETY 03/22/24 16:45 Vital Signs Vital Signs Date Time Temp Pulse Resp B/P (MAP) Pulse Ox O2 Delivery O2 Flow Rate FiO2 03/22/24 17:00 92 16 137/73 (94) 99 03/22/24 16:45 60.0 100 03/22/24 11:03 98.4 98.4 03/22/24 08:20 Oxymizer Physical Exam Gen.: Patient lying in bed in no apparent distress. On supplemental oxygen. Head: Normocephalic, atraumatic. Eyes: EOMI/PERRLA. Ears: Normal hearing. Normal anatomy. Neck/trachea: Trachea midline, supple. Nose: Normal external anatomy. Mouth: Moist mucous membranes. Chest: Decreased air entry bilaterally. No wheezing or rhonchi. Cardiovascular: Positive S1, positive S2. Regular rate and rhythm. Abdomen: Positive bowel sounds in all 4 quadrants. Soft, non-tender, non- distended. : Deferred. Rectal: Deferred. Skin: Warm, dry. Intact. Extremities: 2+ radial pulses bilaterally. No lower extremity edema. Neuro: Awake, alert, oriented x3. No gross motor or sensory deficits. Cranial nerves II through XII intact. Gait not assessed. Labs/Diagnostic Data Labs Test 03/22/24 16:12 03/22/24 14:52 03/22/24 05:36 03/22/24 02:48 Range/Units Blood Gas Specimen Type Arterial Blood Gas Sample Site Right radial Blood Gas Patient Temperature 37.0 Arterial Blood Date Drawn [id number] Arterial Blood pH 7.376 7.350-7.450 Arterial Blood Partial Pressure CO2 42.7 32.0-45.0 mmHg Arterial Blood Partial Pressure O2 59.1 L 83.0-108.0 mmHg Arterial Blood HCO3 24.5 21.0-28.0 mmol/L Arterial Blood Oxygen Saturation 87.7 L 94.0-98.0 % Arterial Blood Base Excess -0.8 -2.0-3.0 mmol/L Arterial Blood Oxyhemoglobin 87.0 L 94.0-98.0 % Arterial Blood Carboxyhemoglobin 0.4 L 0.5-1.5 % Arterial Blood Methemoglobin 0.4 0.0-1.5 % Temo Test Yes Blood Gas Total Hemoglobin 12.50 12.0-16.0 g/dL Blood Gas Liter Flow 15.00 Blood Gas Modality Mask - nrb FiO2 % 100.0 Prothrombin Time 12.2 H 9.3-11.8 sec Prothrombin Time INR 1.16 H 0.9-1.15 Activated Partial Thromboplast Time 67.4 H 24.5-34.5 SEC Troponin I High Sensitivity 655 *H </=34 ng/L White Blood Count 9.4 4.4-10.8 10^3/uL Red Blood Count 4.15 4.0-5.20 10^6/uL Hemoglobin 11.6 L 12.2-16.2 g/dL Hematocrit 35.0 L 36.0-46.0 % Mean Corpuscular Volume 84.5 80.0-100.0 fL Mean Corpuscular Hemoglobin 28.1 28.0-32.0 pg Mean Corpuscular Hemoglobin Concent 33.2 32.0-36.0 g/dL Red Cell Distribution Width 17.3 H 11.8-14.3 % Platelet Count 133 L 140-450 10^3/uL Mean Platelet Volume 8.3 6.9-10.8 fL Neutrophils (%) (Auto) 82.0 H 37.0-80.0 % Lymphocytes (%) (Auto) 10.6 10.0-50.0 % Monocytes (%) (Auto) 6.7 0.0-12.0 % Eosinophils (%) (Auto) 0.4 0.0-7.0 % Basophils (%) (Auto) 0.3 0.0-2.0 % Neutrophils # (Auto) 7.7 1.6-8.6 10 ^3/uL Lymphocytes # (Auto) 1.0 0.4-5.4 10 ^3/uL Monocytes # (Auto) 0.6 0-1.3 10 ^3/uL Eosinophils # (Auto) 0 0-0.8 10 ^3/uL Basophils # (Auto) 0 0-0.2 10 ^3/uL Nucleated Red Blood Cells 0.1 % Sodium Level 142 136-145 mmol/L Potassium Level 3.7 3.5-5.1 mmol/L Chloride Level 107 98-107 mmol/L Carbon Dioxide Level 25 20-31 mmol/L Anion Gap 10 5-15 Blood Urea Nitrogen 15 9-23 mg/dL Creatinine 1.51 H 0.550-1.02 mg/dL Glomerular Filtration Rate Calc 37 >90 mL/min BUN/Creatinine Ratio 9.9 L 10.0-20.0 Serum Glucose 143 H 74-106 mg/dL Calcium Level 10.7 H 8.7-10.4 mg/dL Total Bilirubin 0.4 0.2-1.0 mg/dL Aspartate Amino Transferase (AST) 14 13-40 U/L Alanine Aminotransferase (ALT) 18 7-40 U/L Alkaline Phosphatase 85 46-116 U/L Total Protein 6.7 5.7-8.2 g/dL Albumin 4.3 3.2-4.8 g/dL Test 03/22/24 01:25 03/22/24 00:26 03/21/24 23:40 Range/Units B-Type Natriuretic Peptide 463.70 0-100 pg/mL Venous Blood pH 7.368 7.320-7.430 Venous Blood pCO2 at Patient Temp 39.1 38.0-54.0 mmHg Venous Blood pO2 at Patient Temp < 36.5 23.0-48.0 mmHg Venous Blood HCO3 22.0 22.0-29.0 mmol/L Venous Blood Base Excess -3.0 L -2.0-3.0 mmol/L Urine Color Yellow Yellow Urine Clarity Clear Clear Urine pH 5.5 5.0-9.0 Urine Specific [place] 1.029 1.001-1.035 Urine Protein Trace H Negative Urine Ketones 1+ H Negative Urine Blood Negative Negative /uL Urine Nitrite Negative Negative Urine Bilirubin Negative Negative Urine Urobilinogen Normal Negative mg/dL Urine Leukocyte Esterase Negative Negative /uL Urine RBC 1 0 - 4 /hpf Urine WBC <1 0 - 5 /hpf Urine Squamous Epithelial Cells Few <5 /hpf Urine Calcium Oxalate Crystals Few None Seen Urine Bacteria None seen None Seen /hpf Urine Hyaline Casts Few 0 - 2 /lpf Urine Mucus Few None Seen Urine Glucose Normal Normal mg/dL Assessment Impression: Acute chest pain Acute respiratory distress Acute Pulmonary emboli, saddle with RV strain Acute renal injury Non-ST elevation myocardial infarction Acute exacerbation of congestive heart failure Obesity, BMI 31.6 Plan: Started on BIPAP Titrate to keep O2 sats above 92%. FIO2 100% Monitor respiratory status closely At risk of requiring mechanical ventilator Pt refusing intubation at the moment. Agrees to if she decompensates or her heart stops Continue bronchodilators. On heparin drip. Pain control Avoid oversedation Follow up Cardiology recommendations F/u echo results Consult Cardiology and IR for possible Thrombectomy Diurese w/ Lasix IV 40 mg QD Monitor renal function. Monitor electrolytes. Supplement as necessary. Monitor ins and outs. DVT prophylaxis. Prognosis: Poor given patient's multiple co-morbidities. Rest of plan per hospitalist and other consultants. Condition: Critical Prognosis: Poor given multiple comorbidities. Rest of plan per hospitalist and other consultants. A total of 36 minutes of critical care time was spent reviewing the patient record, examining the patient, making a diagnostic and therapeutic plan, discussing this plan with the medical personnel, following up on diagnostic studies and following the patient for clinical stability excluding any and all procedures. At least 50% of this time was spent in direct, [id number] contact. Thank you Dr. Alexy Watson MD, for allowing me to participate in this patient's care. Further recommendations will depend on the patient's clinical course. Please do not hesitate to contact me if you have any questions or concerns. This medical document was created using an electronic medical record system with [employer] dictation system. Although these documentations are being carefully reviewed, there may still be some phonetic and typographical changes. The errors are purely typographical, due to imperfection on the software program, and do not reflect any compromise in the patient's medical care. Plan discussed with: Patient, Other (RN, MD Watson) NAVEEN QUINTANILLA MD Mar 22, 2024 18:10
[2024-03-22 19:16] LABS: Base Excess -2.8 mmol/L (-2.0-3.0)
[2024-03-22 21:35] LABS: INR 1.14 (0.9-1.15)
[2024-03-22 22:28] LABS: Partial Thromboplastin Time 81.9 SEC (24.5-34.5)
[2024-03-22] MEDS: ATORVASTATIN 20 MG TAB PO SCH (22:33)
[2024-03-23] VITALS (16 sets, daily range): BP systolic 84–126; BP diastolic 60–105; PULSE 82–99; RESP 19–25; O2SAT 44–99
[2024-03-23 07:16] LABS: Basophils # (auto) 0 10 ^3/uL (0-0.2); Basophils % (auto) 0.4 % (0.0-2.0); Eosinophils # (auto) 0.1 10 ^3/uL (0-0.8); Eosinophils % (auto) 1.4 % (0.0-7.0); Hematocrit 34.3 % (36.0-46.0); Hemoglobin 11.5 g/dL (12.2-16.2); Lymphocytes % (auto) 9.9 % (10.0-50.0); Mean Corpuscular Hemoglobin 28.4 pg (28.0-32.0); Mean Corpuscular Hgb Conc. 33.5 g/dL (32.0-36.0); Mean Corpuscular Volume 84.9 fL (80.0-100.0); Monocytes # (auto) 0.8 10 ^3/uL (0-1.3); Monocytes % (auto) 7.8 % (0.0-12.0); Neutrophils # (auto) 8.4 10 ^3/uL (1.6-8.6); Neutrophils % (auto) 80.5 % (37.0-80.0); Platelet Count (auto) 153 10^3/uL (140-450); Red Blood Cells 4.04 10^6/uL (4.0-5.20); Red Cell Distribution Width 17.6 % (11.8-14.3); White Blood Cell 10.4 10^3/uL (4.4-10.8)
[2024-03-23 07:24] LABS: INR 1.13 (0.9-1.15); Partial Thromboplastin Time 66.2 SEC (24.5-34.5); Prothrombin Time 11.9 sec (9.3-11.8)
[2024-03-23 07:33] LABS: Alanine Aminotransferase 15 U/L (7-40); Alkaline Phosphatase 80 U/L (46-116); Anion Gap 10 (5-15); Aspartate Aminotransferase 14 U/L (13-40); BUN/Creatinine Ratio 10.7 (10.0-20.0); Blood Urea Nitrogen 22 mg/dL (9-23); Calcium 9.8 mg/dL (8.7-10.4); Carbon Dioxide 25 mmol/L (20-31); Chloride 104 mmol/L (98-107); Potassium 4.4 mmol/L (3.5-5.1); Sodium 139 mmol/L (136-145)
[2024-03-23 07:34] LABS: Bilirubin, Total 0.5 mg/dL (0.2-1.0); Total Protein 6.6 g/dL (5.7-8.2)
[2024-03-23 07:35] LABS: Glucose 114 mg/dL (74-106)
--- NOTE | 2024-03-23 07:49 | DVHPN2 ---
Reviewed: Care Plan, H&P, Labs, Medications, Previous Orders, Radiology Changes from previous H/P or p: No Changes Eyes: No Pain, No Vision change, No Conjunctivae inflammation, No Eyelid inflammation, No Other, No Redness ENT: No Ear pain, No Ear discharge, No Nose pain, No Nose discharge, No Nose congestion, No Mouth pain, No Mouth swelling, No Throat pain, No Throat swelling, No Other Cardiovascular: Chest Pain; No Palpitations, No Orthopnea, No Paroxysmal Noc. Dyspnea, No Edema, No Lt Headedness, No Other Respiratory: No Cough, No Dry; Shortness of breath; No SOB with excertion, No Wheezing, No Hemoptysis, No Pleuritic Pain, No Sputum; Other (SOB at rest) Gastrointestinal: No Nausea, No Vomiting; Abdominal Pain; No Diarrhea, No Constipation, No Melena, No Hematochezia, No Other Genitourinary: No Dysuria, No Frequency, No Incontinence, No Hematuria, No Retention, No Other Musculoskeletal: No other, No neck pain, No shoulder pain, No arm pain, No back pain, No hand pain, No leg pain, No foot pain Skin: No Rash, No Lesions, No Jaundice, No Bruising, No Other Objective Vitals Vital Signs Date Time Temp Pulse Resp B/P (MAP) Pulse Ox O2 Delivery O2 Flow Rate FiO2 03/23/24 07:00 81 24 93/58 (70) 95 03/23/24 06:17 70.0 100 03/22/24 19:25 98.6 98.6 03/22/24 18:32 Non-Rebreather Intake/Output Intake and Output 03/23/24 07:00 Intake Total 319.5 ml Balance 319.5 ml Intake IV Total 319.5 ml Medications Current Medications Medications Dose Ordered Sig/Shawn Route Start Time Stop Time Status Last Admin Dose Admin Albuterol 2.5 mg Q4HPRN PRN NEB 03/22/24 02:30 03/23/24 06:17 2.5 MG Ipratropium [place] 0.5 mg Q4HPRN PRN NEB 03/22/24 02:30 03/23/24 06:17 0.5 MG Atorvastatin Calcium 40 mg HS PO 03/22/24 22:00 03/22/24 22:33 40 MG Carvedilol 3.125 mg Q12HR PO 03/22/24 10:00 03/22/24 22:32 3.125 MG Clopidogrel Bisulfate 75 mg DAILY PO 03/22/24 10:00 Aspirin 81 mg DAILY PO 03/22/24 10:00 Sodium Chloride 10 ml Q8HR IV 03/22/24 06:00 03/23/24 06:16 10 ML Acetaminophen/ Hydrocodone Bitart 1 tab Q4HP PRN PO 03/22/24 02:30 Docusate Sodium 100 mg BIDPRN PRN PO 03/22/24 02:30 Acetaminophen 650 mg Q6HP PRN PO 03/22/24 02:30 Nitroglycerin 0.4 mg Q5MINP PRN SL 03/22/24 03:00 Morphine Sulfate 2 mg Q30M PRN IV 03/22/24 03:00 03/22/24 14:17 2 MG Calcium Carbonate 500 mg TIDWM PO 03/22/24 08:00 03/22/24 09:56 500 MG Morphine Sulfate 4 mg Q4HPRN PRN IV 03/22/24 14:30 03/22/24 16:57 4 MG Ondansetron HCl 4 mg Q4HPRN PRN IV 03/22/24 14:30 03/22/24 16:56 4 MG Furosemide 40 mg DAILY IV 03/23/24 10:00 Lorazepam 1 mg Q8HP PRN IV 03/22/24 16:45 Heparin Sodium/ Dextrose 250 ml @ 13 mls/hr [id number] IV 03/22/24 22:45 03/22/24 22:45 13 MLS/HR Laboratory Results Laboratory Tests 03/23/24 06:22 Chemistry Test 03/23/24 06:22 Albumin 4.0 g/dL (3.2-4.8) Calcium Level 9.8 mg/dL (8.7-10.4) Total Protein 6.6 g/dL (5.7-8.2) Coagulation Test 03/22/24 14:52 03/22/24 21:06 03/23/24 06:22 Prothrombin Time 12.2 sec (9.3-11.8) H 12.0 sec (9.3-11.8) H 11.9 sec (9.3-11.8) H Prothrombin Time INR 1.16 (0.9-1.15) H 1.14 (0.9-1.15) 1.13 (0.9-1.15) Activated Partial Thromboplast Time 67.4 SEC (24.5-34.5) H 81.9 SEC (24.5-34.5) *H 66.2 SEC (24.5-34.5) H LFT Test 03/23/24 06:22 Alanine Aminotransferase (ALT) 15 U/L (7-40) Alkaline Phosphatase 80 U/L (46-116) Aspartate Amino Transferase (AST) 14 U/L (13-40) Total Bilirubin 0.5 mg/dL (0.2-1.0) Urinalysis Test 03/21/24 23:40 Urine Color Yellow (Yellow) Urine Clarity Clear (Clear) Urine pH 5.5 (5.0-9.0) Urine Specific [place] 1.029 (1.001-1.035) Urine Protein Trace (Negative) H Urine Ketones 1+ (Negative) H Urine Blood Negative /uL (Negative) Urine Nitrite Negative (Negative) Urine Bilirubin Negative (Negative) Urine Urobilinogen Normal mg/dL (Negative) Urine Leukocyte Esterase Negative /uL (Negative) Urine RBC 1 /hpf (0 - 4) Urine WBC <1 /hpf (0 - 5) Urine Squamous Epithelial Cells Few /hpf (<5) Urine Calcium Oxalate Crystals Few (None Seen) Urine Bacteria None seen /hpf (None Seen) Urine Hyaline Casts Few /lpf (0 - 2) Urine Mucus Few (None Seen) Urine Glucose Normal mg/dL (Normal) Blood Gas Results Test 03/22/24 08:47 03/22/24 16:12 03/22/24 18:28 Arterial Blood pH 7.356 (7.350-7.450) 7.376 (7.350-7.450) 7.362 (7.350-7.450) FiO2 % 100.0 100.0 100.0 Labs and/or images reviewed: Labs reviewed by me, Image(s) reviewed by me Assessment/Plan Assessment/Plan Acute bilateral pulmonary embolism on 15 L BiPAP, Dr. Ambrocio following, on heparin drip , pulse ox 90 % Acute non ST elevation [place] type 2, secondary to pulmonary embolism, Troponin 655 Aspirin Plavix pulmonary consult by Dr. Gamble appreciated Acute respiratory failure Acute renal injury Acute exacerbation of chronic diastolic congestive heart failure: Alisha Manzano ejection fraction 55 % Hypertension Diabetes Hypercholesterolemia History of CVA Left hemiplegia Time spent 65 minutes Patient is full code Advanced care planning time 20 minutes Patient not stable for transfer to [place] Plan discussed with: Patient My Orders Orders - SABI WYNN MD Procedure Category Date Status Time * Cardiology Consult CONS 03/22/24 Transmitted 12:59 Morphine Sulfate PHA 03/22/24 In Process Injection 14:30 Ondansetron Hcl PHA 03/22/24 In Process (Zofran) 14:30 Abg W/ Co-Ox RT 03/22/24 Logged 16:04 Oxygen By High-Flow RT 03/22/24 Transmitted 16:29 Abg W/ Co-Ox RT 03/22/24 Logged 17:30 *Consult CONS 03/22/24 Transmitted / 16:33 Lorazepam 2mg/Ml Inj PHA 03/22/24 In Process (Ativan Inj) 16:45 Transfer Orders XFER 03/22/24 Transmitted 17:43 PTPTT LAB 03/23/24 Logged 13:30 Date of Service: Mar 23, 2024 Billing Provider: SABI WYNN MD Common Visit Codes: [id number] CARE 30-74 MIN SABI WYNN MD Mar 23, 2024 07:49
[2024-03-23 09:14] LABS: Base Excess -2.3 mmol/L (-2.0-3.0)
--- NOTE | 2024-03-23 09:32 | DVH ---
CHEST RADIOGRAPH Indication: SOB Technique: Single frontal view of the chest was obtained COMPARISON: XY CHEST PORTABLE on DOS: 03/21/24 FINDINGS: Lines and Tubes: None Lungs: Mild interstitial pulmonary edema. Pleura: No effusion. No pneumothorax. Cardiomediastinal contours: Mild cardiomegaly Bones: Unremarkable IMPRESSION: 1. Mild interstitial pulmonary edema. No significant interval change since March 21, 2024.
[2024-03-23] MEDS: FUROSEMIDE 40 MG/4 ML VIAL IV SCH (10:05)
[2024-03-23] MEDS: HYDROcodone-ACET 5/325MG TAB PO PRN (10:40)
--- NOTE | 2024-03-23 13:26 | DVHPN2 ---
Consult Progress Note Subjective Patient reports: Feels worse Review of Systems: RESPIRATORY:Abnormal (Moderate respirtory distress) Objective vital signs Vital Sign Date Time Temp Pulse Resp B/P (MAP) Pulse Ox O2 Delivery O2 Flow Rate FiO2 03/23/24 12:00 87 26 96/55 (69) 93 03/23/24 10:34 70.0 95 03/23/24 07:30 Hi-Flow Heated NC+ Hi-Flow NC 03/23/24 07:30 97.3 97.3 Total Intake and Output 03/22/24 03/22/24 03/23/24 15:00 23:00 07:00 Intake Total 90 ml 125.5 ml 104 ml Balance 90 ml 125.5 ml 104 ml medications Current Medications Medications Dose Ordered Sig/Shawn Route Start Time Stop Time Status Last Admin Dose Admin Albuterol 2.5 mg Q4HPRN PRN NEB 03/22/24 02:30 03/23/24 10:34 2.5 MG Ipratropium [place] 0.5 mg Q4HPRN PRN NEB 03/22/24 02:30 03/23/24 10:34 0.5 MG Atorvastatin Calcium 40 mg HS PO 03/22/24 22:00 03/22/24 22:33 40 MG Carvedilol 3.125 mg Q12HR PO 03/22/24 10:00 03/22/24 22:32 3.125 MG Clopidogrel Bisulfate 75 mg DAILY PO 03/22/24 10:00 03/23/24 10:06 75 MG Aspirin 81 mg DAILY PO 03/22/24 10:00 03/23/24 10:06 81 MG Sodium Chloride 10 ml Q8HR IV 03/22/24 06:00 03/23/24 06:16 10 ML Acetaminophen/ Hydrocodone Bitart 1 tab Q4HP PRN PO 03/22/24 02:30 Hold 03/23/24 10:40 1 TAB Docusate Sodium 100 mg BIDPRN PRN PO 03/22/24 02:30 Acetaminophen 650 mg Q6HP PRN PO 03/22/24 02:30 Nitroglycerin 0.4 mg Q5MINP PRN SL 03/22/24 03:00 Morphine Sulfate 2 mg Q30M PRN IV 03/22/24 03:00 03/22/24 14:17 2 MG Calcium Carbonate 500 mg TIDWM PO 03/22/24 08:00 03/23/24 12:48 500 MG Morphine Sulfate 4 mg Q4HPRN PRN IV 03/22/24 14:30 03/22/24 16:57 4 MG Ondansetron HCl 4 mg Q4HPRN PRN IV 03/22/24 14:30 03/22/24 16:56 4 MG Furosemide 40 mg DAILY IV 03/23/24 10:00 03/23/24 10:05 40 MG Heparin Sodium/ Dextrose 250 ml @ 13 mls/hr [id number] IV 03/22/24 22:45 03/22/24 22:45 13 MLS/HR Examination: LUNGS:Abnormal (On High Flow NC) laboratory and microbiology Laboratory Tests 03/23/24 06:22 Test 03/23/24 06:22 Range/Units Serum Glucose 114 H 74-106 mg/dL Problem List/Assessment/Plan Problem List/Assessment/Plan * Acute bilateral PE - CT showing findings consistent with right heart strain. Echo reviewed and shows normal EF 55% with diastolic dysfunction. Severely reduced RV systolic function. RVSP of 55 mmHg. Continue anticoagulation with heparin drip. * NSTEMI - type 2 TX in setting of acute PE. Continue heparin drip. EKG with nonspecific ST and T-wave abnormality. Continue on Plavix and statin * MARI on CKD - avoid nephrotoxic agents. Monitor response with Lasix. * HX CVA - continue statin and Plavix. * Acute right-sided heart failure - in setting of PE. RVSP of 55 mm of mercury. Continue supportive care. Lasix 40 mg IV daily. * Possible pancreatic mass on CT, management primary team. * HTN - Stable on Coreg. Case Discussed with Dr Schneider. Acute PE continued on heparin drip. NSTEMI type 2 continue medical management. Follow-up echo shows normal LV EF with severely reduced RV systolic function. Continue supportive care for now. Critical care, time spent: 48 minutes This medical document was created using an electronic medical record system with voice recognition software and computerized dictation system. Although this document has been carefully reviewed, there might still be some phonetic and typographical errors. Occasional wrong-word or ``sound-alike substitutions may have occurred due to the inherent limitations of voice recognition software. These areas are purely typographical due to imperfections of the software programs and do not reflect any compromise in the patient's medical care. Please read the chart carefully and recognize, using context, where these substitutions have occurred. Plan discussed with: Patient Date of Service: Mar 23, 2024 Billing Provider: GISELE SCHNEIDER MD Common Visit Codes: [id number] INP/OBS CARE(HIGH), [id number] CARE 30-74 MIN CARLA RODRÍGUEZ [facility] Mar 23, 2024 13:26
[2024-03-23 14:04] LABS: INR 1.13 (0.9-1.15); Prothrombin Time 11.9 sec (9.3-11.8)
[2024-03-23 14:06] LABS: Partial Thromboplastin Time 72.3 SEC (24.5-34.5)
[2024-03-23 19:25] LABS: INR 1.13 (0.9-1.15); Partial Thromboplastin Time 61.2 SEC (24.5-34.5); Prothrombin Time 11.9 sec (9.3-11.8)
--- NOTE | 2024-03-23 20:50 | DVHPN2 ---
Progress Note - Dictate Date Seen: Mar 23, 2024 Medical Necessity Reason Pt with a Central, PICC or Fol: No Subjective Patient seen and examined at bedside. Currently on BiPAP Overnight events reviewed. vital signs Vital Sign Date Time Temp Pulse Resp B/P (MAP) Pulse Ox O2 Delivery O2 Flow Rate FiO2 03/23/24 20:00 83 03/23/24 19:53 22 94/59 03/23/24 19:50 99 Facial BiPAP Mask 100 03/23/24 13:59 70.0 03/23/24 13:00 97.5 97.5 Total Intake and Output 03/22/24 03/22/24 03/23/24 15:00 23:00 07:00 Intake Total 90 ml 125.5 ml 104 ml Balance 90 ml 125.5 ml 104 ml medications Current Medications Medications Dose Ordered Sig/Shawn Route Start Time Stop Time Status Last Admin Dose Admin Albuterol 2.5 mg Q4HPRN PRN NEB 03/22/24 02:30 03/23/24 13:59 2.5 MG Ipratropium [place] 0.5 mg Q4HPRN PRN NEB 03/22/24 02:30 03/23/24 13:59 0.5 MG Atorvastatin Calcium 40 mg HS PO 03/22/24 22:00 03/22/24 22:33 40 MG Carvedilol 3.125 mg Q12HR PO 03/22/24 10:00 03/22/24 22:32 3.125 MG Clopidogrel Bisulfate 75 mg DAILY PO 03/22/24 10:00 03/23/24 10:06 75 MG Aspirin 81 mg DAILY PO 03/22/24 10:00 03/23/24 10:06 81 MG Sodium Chloride 10 ml Q8HR IV 03/22/24 06:00 03/23/24 14:05 10 ML Acetaminophen/ Hydrocodone Bitart 1 tab Q4HP PRN PO 03/22/24 02:30 Hold 03/23/24 10:40 1 TAB Docusate Sodium 100 mg BIDPRN PRN PO 03/22/24 02:30 Acetaminophen 650 mg Q6HP PRN PO 03/22/24 02:30 Nitroglycerin 0.4 mg Q5MINP PRN SL 03/22/24 03:00 Morphine Sulfate 2 mg Q30M PRN IV 03/22/24 03:00 03/22/24 14:17 2 MG Calcium Carbonate 500 mg TIDWM PO 03/22/24 08:00 03/23/24 12:48 500 MG Morphine Sulfate 4 mg Q4HPRN PRN IV 03/22/24 14:30 03/23/24 19:53 4 MG Ondansetron HCl 4 mg Q4HPRN PRN IV 03/22/24 14:30 03/22/24 16:56 4 MG Furosemide 40 mg DAILY IV 03/23/24 10:00 03/23/24 10:05 40 MG Heparin Sodium/ Dextrose 250 ml @ 13 mls/hr [id number] IV 03/22/24 22:45 03/22/24 22:45 13 MLS/HR objective Gen.: Patient lying in bed in no apparent distress. On BiPAP Head: Normocephalic, atraumatic. Eyes: EOMI/PERRLA. Ears: Normal hearing. Normal anatomy. Neck/trachea: Trachea midline, supple. Nose: Normal external anatomy. Mouth: Moist mucous membranes. Chest: Decreased air entry bilaterally. No wheezing or rhonchi. Cardiovascular: Positive S1, positive S2. Regular rate and rhythm. Abdomen: Positive bowel sounds in all 4 quadrants. Soft, non-tender, non- distended. : Deferred. Rectal: Deferred. Skin: Warm, dry. Intact. Extremities: 2+ radial pulses bilaterally. No lower extremity edema. Neuro: Awake, alert, oriented x3. No gross motor or sensory deficits. Cranial nerves II through XII intact. Gait not assessed. laboratory and microbiology Laboratory Tests 03/23/24 06:22 Test 03/23/24 06:22 Range/Units Serum Glucose 114 H 74-106 mg/dL Assessment/Plan Impression: Acute chest pain Acute respiratory distress Pulmonary emboli Acute renal injury Non-ST elevation myocardial infarction Acute exacerbation of congestive heart failure Events: Start BiPAP for respiratory distress. - FiO2 100%. ABG reviewed, compensated on HFO2. CXR notable for mild interstitial edema. Monitor respiratory status closely - high risk for intubation. Continue heparin drip. Bronchodilators PRN Diurese w/ Lasix as tolerated Monitor renal function. Monitor electrolytes. Supplement as necessary. Head of bed elevation Aspiration precautions Labs and imaging reviewed. Rest of plan as noted below. Plan: Start BiPAP for respiratory distress. - FiO2 100%. Titrate to keep O2 sats above 92%. Continue bronchodilators. On heparin drip. Pain control Avoid oversedation Cardiology recommendations appreciated. Diurese w/ Lasix IV 40 mg QD Monitor renal function. Monitor electrolytes. Supplement as necessary. Monitor ins and outs. DVT prophylaxis. Prognosis: Poor given patient's multiple co-morbidities. Condition: Critical Rest of plan per hospitalist and other consultants. A total of 35 minutes of critical care time was spent reviewing the patient record, examining the patient, making a diagnostic and therapeutic plan, discussing this plan with the medical personnel, following up on diagnostic studies and following the patient for clinical stability excluding any and all procedures. At least 50% of this time was spent in direct, [id number] contact. Thank you Dr. Alexy Watson MD, for allowing me to participate in this patient's care. Further recommendations will depend on the patient's clinical course. Please do not hesitate to contact me if you have any questions or concerns. This medical document was created using an electronic medical record system with [employer] dictation system. Although these documentations are being carefully reviewed, there may still be some phonetic and typographical changes. The errors are purely typographical, due to imperfection on the software program, and do not reflect any compromise in the patient's medical care. Plan discussed with: Patient, Other (RN) Critical Care Time(min): 35 NAVEEN QUINTANILLA MD Mar 23, 2024 20:50
[2024-03-24] VITALS (13 sets, daily range): BP systolic 90–134; BP diastolic 54–80; PULSE 68–81; RESP 12–16; O2SAT 94–100
[2024-03-24 02:05] LABS: INR 1.13 (0.9-1.15); Partial Thromboplastin Time 64.8 SEC (24.5-34.5); Prothrombin Time 11.9 sec (9.3-11.8)
[2024-03-24 07:42] LABS: INR 1.14 (0.9-1.15); Partial Thromboplastin Time 69.4 SEC (24.5-34.5)
[2024-03-24 12:02] LABS: Base Excess 0.5 mmol/L (-2.0-3.0)
--- NOTE | 2024-03-24 12:38 | DVH ---
BILATERAL LOWER EXTREMITY VENOUS DOPPLER CLINICAL HISTORY: positive PE Technique: Duplex Doppler evaluation of the deep venous systems of both lower extremities from the co mmon femoral veins to the popliteal veins including color Doppler and spectral/pulsed waveform analys is was performed. COMPARISON: None FINDINGS: There is thrombus seen in the left popliteal vein. Right common femoral, superficial femoral, popliteal, posterior tibial veins appear patent with nor mal augmentation, phasicity, compressibility and color-flow. IMPRESSION: 1. Left popliteal vein DVT. 2. There is no sonographic evidence of DVT in the right lower extremity. HS:Y
--- NOTE | 2024-03-24 12:44 | DVHPN2 ---
Subjective Patient continues to reports shortness of breath. Reviewed: Care Plan, H&P, Labs, Medications, Previous Orders, Radiology Changes from previous H/P or p: No Changes General: Per HPI Eyes: No Pain, No Vision change, No Conjunctivae inflammation, No Eyelid inflammation, No Other, No Redness ENT: No Ear pain, No Ear discharge, No Nose pain, No Nose discharge, No Nose congestion, No Mouth pain, No Mouth swelling, No Throat pain, No Throat swelling, No Other Cardiovascular: Chest Pain; No Palpitations, No Orthopnea, No Paroxysmal Noc. Dyspnea, No Edema, No Lt Headedness, No Other Respiratory: No Cough, No Dry; Shortness of breath; No SOB with excertion, No Wheezing, No Hemoptysis, No Pleuritic Pain, No Sputum; Other (SOB at rest) Gastrointestinal: No Nausea, No Vomiting; Abdominal Pain; No Diarrhea, No Constipation, No Melena, No Hematochezia, No Other Genitourinary: No Dysuria, No Frequency, No Incontinence, No Hematuria, No Retention, No Other Musculoskeletal: No other, No neck pain, No shoulder pain, No arm pain, No back pain, No hand pain, No leg pain, No foot pain Skin: No Rash, No Lesions, No Jaundice, No Bruising, No Other Objective Vitals Vital Signs Date Time Temp Pulse Resp B/P (MAP) Pulse Ox O2 Delivery O2 Flow Rate FiO2 03/24/24 12:00 73 03/24/24 12:00 20 93/66 (75) 98 03/24/24 10:03 Facial BiPAP Mask 100 03/24/24 07:25 97.3 97.3 03/23/24 13:59 70.0 Intake/Output Intake and Output 03/24/24 07:00 Intake Total 232.48 ml Balance 232.48 ml Intake IV Total 232.48 ml General Appearance: Alert, Oriented X3, Cooperative, moderate distress HEENT: Atraumatic, PERRLA Lungs: Clear to auscultation, Normal air movement Cardiovascular: Normal S1, Normal S2, Other (ST depression) Abdomen: Normal bowel sounds, No tenderness Genitourinary: No Apparent Abnormalities Musculoskeletal: Normal sensory function, Normal motor function Extremities: Normal pulses Neuro: Normal gait, Normal speech Psych/Mental Status: Mental status NL, Mood NL Medications Current Medications Medications Dose Ordered Sig/Shawn Route Start Time Stop Time Status Last Admin Dose Admin Albuterol 2.5 mg Q4HPRN PRN NEB 03/22/24 02:30 03/23/24 13:59 2.5 MG Ipratropium [place] 0.5 mg Q4HPRN PRN NEB 03/22/24 02:30 03/23/24 13:59 0.5 MG Atorvastatin Calcium 40 mg HS PO 03/22/24 22:00 03/23/24 21:41 40 MG Carvedilol 3.125 mg Q12HR PO 03/22/24 10:00 03/24/24 11:57 3.125 MG Clopidogrel Bisulfate 75 mg DAILY PO 03/22/24 10:00 03/24/24 11:59 75 MG Aspirin 81 mg DAILY PO 03/22/24 10:00 03/24/24 11:57 81 MG Sodium Chloride 10 ml Q8HR IV 03/22/24 06:00 03/24/24 06:17 10 ML Acetaminophen/ Hydrocodone Bitart 1 tab Q4HP PRN PO 03/22/24 02:30 Hold 03/23/24 10:40 1 TAB Docusate Sodium 100 mg BIDPRN PRN PO 03/22/24 02:30 Acetaminophen 650 mg Q6HP PRN PO 03/22/24 02:30 Nitroglycerin 0.4 mg Q5MINP PRN SL 03/22/24 03:00 Morphine Sulfate 2 mg Q30M PRN IV 03/22/24 03:00 03/22/24 14:17 2 MG Calcium Carbonate 500 mg TIDWM PO 03/22/24 08:00 03/24/24 12:00 500 MG Morphine Sulfate 4 mg Q4HPRN PRN IV 03/22/24 14:30 03/23/24 19:53 4 MG Ondansetron HCl 4 mg Q4HPRN PRN IV 03/22/24 14:30 03/22/24 16:56 4 MG Furosemide 40 mg DAILY IV 03/23/24 10:00 03/24/24 11:58 40 MG Heparin Sodium/ Dextrose 250 ml @ 13 mls/hr [id number] IV 03/22/24 22:45 03/23/24 21:00 13 MLS/HR Laboratory Results Laboratory Tests 03/23/24 06:22 Coagulation Test 03/23/24 13:18 03/23/24 18:58 03/24/24 01:16 03/24/24 07:03 Prothrombin Time 11.9 sec (9.3-11.8) H 11.9 sec (9.3-11.8) H 11.9 sec (9.3-11.8) H 12.0 sec (9.3-11.8) H Prothrombin Time INR 1.13 (0.9-1.15) 1.13 (0.9-1.15) 1.13 (0.9-1.15) 1.14 (0.9-1.15) Activated Partial Thromboplast Time 72.3 SEC (24.5-34.5) *H 61.2 SEC (24.5-34.5) H 64.8 SEC (24.5-34.5) H 69.4 SEC (24.5-34.5) H Urinalysis Test 03/21/24 23:40 Urine Color Yellow (Yellow) Urine Clarity Clear (Clear) Urine pH 5.5 (5.0-9.0) Urine Specific [place] 1.029 (1.001-1.035) Urine Protein Trace (Negative) H Urine Ketones 1+ (Negative) H Urine Blood Negative /uL (Negative) Urine Nitrite Negative (Negative) Urine Bilirubin Negative (Negative) Urine Urobilinogen Normal mg/dL (Negative) Urine Leukocyte Esterase Negative /uL (Negative) Urine RBC 1 /hpf (0 - 4) Urine WBC <1 /hpf (0 - 5) Urine Squamous Epithelial Cells Few /hpf (<5) Urine Calcium Oxalate Crystals Few (None Seen) Urine Bacteria None seen /hpf (None Seen) Urine Hyaline Casts Few /lpf (0 - 2) Urine Mucus Few (None Seen) Urine Glucose Normal mg/dL (Normal) Blood Gas Results Test 03/24/24 11:55 Arterial Blood pH 7.412 (7.350-7.450) FiO2 % 90.0 Labs and/or images reviewed: Labs reviewed by me, Image(s) reviewed by me Assessment/Plan Assessment/Plan Impression: -acute hypoxic respiratory failure secondary to pulmonary embolism -pulmonary embolism with right ventricular strain -NSTEMI type 2 secondary to pulmonary embolism and right ventricular strain -acute kidney injury -pancreatic head mass -probable DVT to left lower extremity -diabetes mellitus -primary hypertension -dyslipidemia Plan: -patient continues to be on 100% FiO2 on BiPAP. Consultation was placed with IR for possible thrombectomy, but given results of CTA, thrombectomy will be held at this time. Given patient's clinical status and echocardiogram results revealing severe RV strain/failure a 2nd opinion will be obtained -continue heparin drip -continue aspirin and Plavix at this time per Cardiology. -continue O2 supplementation to keep saturation greater than 92%. Continues to be on BiPAP -regular insulin sliding scale -DVT study of lower extremities -regular insulin sliding scale -statins -abdominal ultrasound to assess pancreatic mass, liver, right lower quadrant pain -social service consultation regarding transfer. Patient was unstable to transfer to [facility] and given severe hypoxia and PE Critical care time spent with patient discussing and formulating plan of care: 40 minutes. This does not include time spent performing procedures. This medical document was created using an electronic medical record system with [employer] dictation system. Although this document has been carefully reviewed, there may still be some phonetic and typographical errors. These areas are purely typographical due to imperfections of the software programs, and do not reflect any compromise in the patient's medical care. Plan discussed with: Patient, Other (RN) My Orders Orders - SOPHY SAMSON NP Procedure Category Date Status Time Carbohydrate Antigen LAB 03/24/24 In Process 19-9 Bilat Lower Dvt US 03/24/24 Taken 11:51 Abdomen Complete US 03/24/24 Taken Sonogram 12:10 *Dr. [facility] CONS 03/24/24 Transmitted -[place] 12:12 Right Lower Quad US 03/24/24 Logged Chest Xray 1 View XY 03/24/24 Logged 12:29 Comprehensive LAB 03/25/24 Verified Metabolic Panel 04:00 * [employer] CONS 03/24/24 Transmitted Consult Date of Service: Mar 24, 2024 Billing Provider: SOPHY SAMSON NP Common Visit Codes: 82064-[id number] CARE 30-74 MIN SOPHY SAMSON NP Mar 24, 2024 12:44
--- NOTE | 2024-03-24 13:13 | DVH ---
Ultrasound abdomen INDICATION: pancreatic mass. Right lower quadrant pain. Technique: 2-D real-time ultrasound was performed with axial and sagittal images submitted for evalu ation. FINDINGS: Liver and spleen are normal in size . Scattered hepatic cysts or hemangiomata measuring u p to 1.4 cm in size gallbladder surgically absent. No biliary dilatation. Common bile duct 5.9 mm. Ki dneys are normal in size without mass stone or hydronephrosis. Limited visualization of the pancreas due to overlying bowel gas. No free fluid. No abnormalities of the aorta or inferior vena cava. No fr ee fluid or abscess IMPRESSION: 1. Pancreas suboptimally seen . Recommended dedicated CT or MRI of the pancreas with contrast for fur ther evaluation 2. Scattered hepatic masses most likely cysts or hemangiomata
--- NOTE | 2024-03-24 13:25 | DVH ---
EXAM: XY CHEST XRAY 1 VIEW Indication: hypoxia Technique: Single frontal view of the chest was obtained Comparison: XY CHEST XRAY 1 VIEW on DOS: 03/23/24, XY CHEST PORTABLE on DOS: 03/21/24 FINDINGS: Lines and Tubes: None Lungs: Bibasilar opacities. Pleura: No effusion. No pneumothorax. Cardiomediastinal contours: Cardiomegaly. Bones: No acute osseous abnormality. IMPRESSION: Cardiomegaly with bibasilar opacities.
--- NOTE | 2024-03-24 13:45 | DVH ---
ULTRASOUND ABDOMEN LIMITED INDICATION: PAIN TECHNIQUE: Multiple real-time sonographic images of the right lower quadrant abdomen were obtained. COMPARISON: US BILAT LOWER DVT on DOS: 03/24/24 FINDINGS: There is no discrete fluid collection or mass in the right lower quadrant abdomen. The appendix is no t identified. IMPRESSION: 1. There is no sonographic abnormality identified in the right lower quadrant abdomen. HS:Y
--- NOTE | 2024-03-24 14:25 | DVHPN2 ---
Consult Progress Note Date Seen: Mar 24, 2024 Subjective Other Systems: C/o SOB Objective vital signs Vital Sign Date Time Temp Pulse Resp B/P (MAP) Pulse Ox O2 Delivery O2 Flow Rate FiO2 03/24/24 13:48 71 90/63 98 Facial BiPAP Mask 90 03/24/24 13:00 17 03/24/24 07:25 97.3 97.3 03/23/24 13:59 70.0 Total Intake and Output 03/23/24 03/23/24 03/24/24 15:00 23:00 07:00 Intake Total 89.48 ml 91 ml 52 ml Balance 89.48 ml 91 ml 52 ml medications Current Medications Medications Dose Ordered Sig/Shawn Route Start Time Stop Time Status Last Admin Dose Admin Albuterol 2.5 mg Q4HPRN PRN NEB 03/22/24 02:30 03/23/24 13:59 2.5 MG Ipratropium [place] 0.5 mg Q4HPRN PRN NEB 03/22/24 02:30 03/23/24 13:59 0.5 MG Atorvastatin Calcium 40 mg HS PO 03/22/24 22:00 03/23/24 21:41 40 MG Carvedilol 3.125 mg Q12HR PO 03/22/24 10:00 03/24/24 11:57 3.125 MG Clopidogrel Bisulfate 75 mg DAILY PO 03/22/24 10:00 03/24/24 11:59 75 MG Aspirin 81 mg DAILY PO 03/22/24 10:00 03/24/24 11:57 81 MG Sodium Chloride 10 ml Q8HR IV 03/22/24 06:00 03/24/24 14:00 10 ML Acetaminophen/ Hydrocodone Bitart 1 tab Q4HP PRN PO 03/22/24 02:30 Hold 03/23/24 10:40 1 TAB Docusate Sodium 100 mg BIDPRN PRN PO 03/22/24 02:30 Acetaminophen 650 mg Q6HP PRN PO 03/22/24 02:30 Nitroglycerin 0.4 mg Q5MINP PRN SL 03/22/24 03:00 Morphine Sulfate 2 mg Q30M PRN IV 03/22/24 03:00 03/22/24 14:17 2 MG Calcium Carbonate 500 mg TIDWM PO 03/22/24 08:00 03/24/24 12:00 500 MG Morphine Sulfate 4 mg Q4HPRN PRN IV 03/22/24 14:30 03/23/24 19:53 4 MG Ondansetron HCl 4 mg Q4HPRN PRN IV 03/22/24 14:30 03/22/24 16:56 4 MG Furosemide 40 mg DAILY IV 03/23/24 10:00 03/24/24 11:58 40 MG Heparin Sodium/ Dextrose 250 ml @ 13 mls/hr [id number] IV 03/22/24 22:45 03/23/24 21:00 13 MLS/HR Examination: GENERAL:Abnormal (Lethargic), LUNGS:Abnormal (On BiPAP Fio2 at 90%), CVS:Normal, NEURO:Normal laboratory and microbiology Laboratory Tests 03/23/24 06:22 Test 03/23/24 06:22 Range/Units Serum Glucose 114 H 74-106 mg/dL Problem List/Assessment/Plan Problem List/Assessment/Plan * Acute bilateral PE with right heart strain - CT showing findings consistent with right heart strain. Echo reviewed and shows normal EF 55% with diastolic dysfunction. Severely reduced RV systolic function. RVSP of 55 mmHg. Continue anticoagulation with heparin drip. Scheduled for pulmonary thrombectomy on 03/24/2024. * Left lower extremity DVT - Continue anticoagulation with heparin drip * NSTEMI - type 2 MN in setting of acute PE. EKG with nonspecific ST and T-wave abnormality. * MARI on CKD - avoid nephrotoxic agents. Monitor response with Lasix. Continue Nephrology recommendations. * HX CVA - continue statin and Plavix. * HTN - Discontinue Coreg given borderline BPs. * Possible pancreatic malignancy Case Discussed with Dr Schneider. Acute PE with RV strain on heparin drip. The patient continues requiring High O2 via BiPAP. Scheduled for a pulmonary thrombectomy on 03/25/24. All risks, including JERICA, and benefits of the procedure were discussed in detail with patient and daughter, Goldy Hallman, over the phone at . They both agreed to proceed with intervention. All questions answered. Thank you for allowing us to participate in this patient's care. Please call if you have any questions or concerns. Critical care, time spent: 30 minutes. This medical document was created using an electronic medical record system with voice recognition software and computerized dictation system. Although this document has been carefully reviewed, there might still be some phonetic and typographical errors. Occasional wrong-word or ``sound-alike substitutions may have occurred due to the inherent limitations of voice recognition software. These areas are purely typographical due to imperfections of the software programs and do not reflect any compromise in the patient's medical care. Please read the chart carefully and recognize, using context, where these substitutions have occurred. Plan discussed with: Patient, Daughter, Other Date of Service: Mar 24, 2024 Billing Provider: GISELE SCHNEIDER MD Cardiology Common Codes: [id number] CARE 30-74 MIN DENNY GUTIERREZ [facility] Mar 24, 2024 14:25
--- NOTE | 2024-03-24 14:45 | ECG ---
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
--- NOTE | 2024-03-24 16:54 | DVHCONRES ---
Date Seen: Mar 24, 2024 Resident Creating Document: ÁNGELA ALCNATARA RESIDENT Referring Physician Luisa HAMPTON Reason for Consultation MARI History of Present Illness Patient is 73-year-old woman with past medical history of hypertension, diabetes mellitus type 2, hyperlipidemia, CVA with left-sided residual weakness who presented to emergency department with chief complaint of shortness of breath. Given progressively worsened shortness of breath, nonradiating, substernal, during ED workup CT scan showed pancreatic mass with possible mass, CT angio showed bilateral pulmonary emboli consistent with right heart strain. Cardiology consultation was done and plan for pulmonary thrombectomy tomorrow morning. Nephrology consultation has been done for worsening acute kidney injury. Creatinine trending up from 1.51 two 2.06. Elevated troponin at 655, BNP 463. Echocardiogram showed left ventricular ejection fraction 55%, RVSP 55 mm and mildly dilated right and left atria. No any other new complaints. Past Medical History Hypertension, hyperlipidemia, diabetes mellitus type 2, CVA with left-sided weakness. Past Surgical History As per HPI Social History As per HPI Allergies: Coded Allergies: Sulfamethoxazole w/Trimethoprim (Verified Allergy, Unknown, 03/23/24) Home Meds Reported Medications Pantoprazole Sodium Sesquihydr (Protonix) 40 Mg Tab, 1 TAB PO BID for 100 Days, #200 03/25/24 Atorvastatin Calcium (Lipitor) 80 Mg Tab, 1 TAB PO DAILY for 100 Days, #100 03/25/24 Losartan Potassium (Losartan Potassium) 50 Mg Tab, 1 TAB PO DAILY for 100 Days, #100 03/25/24 Amlodipine Besylate (Amlodipine Besylate) 2.5 Mg Tab, 1 TAB PO DAILY for 100 Days, #100 03/25/24 Clopidogrel Bisulfate (Plavix) 75 Mg Tab, 1 TAB PO DAILY for 100 Days, #100 03/25/24 Sertraline Hcl (Sertraline Hcl) 100 Mg Tab, 1 TAB PO DAILY for 100 Days, #100 03/25/24 Current Medications Current Medications Medications (Trade) Dose Ordered Sig/Shawn Route PRN Reason Start Time Stop Time Status Last Admin Furosemide (Lasix Injection) 40 mg BIDD IV 03/24/24 18:00 Review of Systems Eyes: No Pain, No Vision change, No Conjunctivae inflammation, No Eyelid inflammation, No Other, No Redness ENT: No Ear pain, No Ear discharge, No Nose pain, No Nose discharge, No Nose congestion, No Mouth pain, No Mouth swelling, No Throat pain, No Throat swelling, No Other Cardiovascular: No Chest Pain, No Palpitations, No Orthopnea, No Paroxysmal Noc. Dyspnea, No Edema, No Lt Headedness, No Other Respiratory: No Cough, No Dry, Shortness of breath, No SOB with excertion, No Wheezing, No Hemoptysis, No Pleuritic Pain, No Sputum, No Other Gastrointestinal: No Nausea, No Vomiting, No Abdominal Pain, No Diarrhea, No Constipation, No Melena, No Hematochezia, No Other Genitourinary: No Dysuria, No Frequency, No Incontinence, No Hematuria, No Retention, No Other Musculoskeletal: No other, No neck pain, No shoulder pain, No arm pain, No back pain, No hand pain, No leg pain, No foot pain Skin: No Rash, No Lesions, No Jaundice, No Bruising, No Other Vital Signs Vital Signs Date Time Temp Pulse Resp B/P (MAP) Pulse Ox O2 Delivery O2 Flow Rate FiO2 03/24/24 16:02 75 18 101/61 (74) 99 03/24/24 15:53 Facial BiPAP Mask 90 03/24/24 07:25 97.3 97.3 03/23/24 13:59 70.0 Physical Exam General Appearance: Cooperative. In mild acute distress. Head Exam: Normal inspection Neck Exam: Normal inspection. Non-tender. Normal alignment Pulmonary/Respiratory: Chest non-tender. Clear bilateral breath sounds, on BiPAP. Cardiovascular/Chest: Regular rate and rhythm. No murmurs. No JVD. Peripheral Pulses: 2+ Radial (R). 2+ Radial (L). 2+ Pedal (R). 2+ Pedal (L) Abdominal Exam: Normal bowel sounds. Soft. Nontender. No hepatospenomegaly. No masses Ankle Exam: Negative ankle edema Lower extremities: Negative lower extremity edema Neuro/Mental Status: A&O x4. Coherent Labs/Diagnostic Data Labs Test 03/24/24 11:55 03/24/24 07:03 03/23/24 09:08 03/23/24 06:22 Range/Units Blood Gas Specimen Type Arterial Blood Gas Sample Site Right radial Blood Gas Patient Temperature 37.0 Arterial Blood Date Drawn [id number] Arterial Blood pH 7.412 7.350-7.450 Arterial Blood Partial Pressure CO2 40.3 32.0-45.0 mmHg Arterial Blood Partial Pressure O2 113.6 H 83.0-108.0 mmHg Arterial Blood HCO3 25.1 21.0-28.0 mmol/L Arterial Blood Oxygen Saturation 97.6 94.0-98.0 % Arterial Blood Base Excess 0.5 -2.0-3.0 mmol/L Arterial Blood Oxyhemoglobin 96.2 94.0-98.0 % Arterial Blood Carboxyhemoglobin 0.3 L 0.5-1.5 % Arterial Blood Methemoglobin 1.1 0.0-1.5 % Temo Test Yes Blood Gas Total Hemoglobin 11.40 L 12.0-16.0 g/dL Blood Gas Set Respiration Rate 12.0 Blood Gas Modality Mask - bipap Blood Gas Spontaneous Rate 26 FiO2 % 90.0 Blood Gas EPAP 7 Blood Gas IPAP 14 Prothrombin Time 12.0 H 9.3-11.8 sec Prothrombin Time INR 1.14 0.9-1.15 Activated Partial Thromboplast Time 69.4 H 24.5-34.5 SEC Blood Gas Liter Flow 70.00 White Blood Count 10.4 4.4-10.8 10^3/uL Red Blood Count 4.04 4.0-5.20 10^6/uL Hemoglobin 11.5 L 12.2-16.2 g/dL Hematocrit 34.3 L 36.0-46.0 % Mean Corpuscular Volume 84.9 80.0-100.0 fL Mean Corpuscular Hemoglobin 28.4 28.0-32.0 pg Mean Corpuscular Hemoglobin Concent 33.5 32.0-36.0 g/dL Red Cell Distribution Width 17.6 H 11.8-14.3 % Platelet Count 153 140-450 10^3/uL Mean Platelet Volume 8.4 6.9-10.8 fL Neutrophils (%) (Auto) 80.5 H 37.0-80.0 % Lymphocytes (%) (Auto) 9.9 L 10.0-50.0 % Monocytes (%) (Auto) 7.8 0.0-12.0 % Eosinophils (%) (Auto) 1.4 0.0-7.0 % Basophils (%) (Auto) 0.4 0.0-2.0 % Neutrophils # (Auto) 8.4 1.6-8.6 10 ^3/uL Lymphocytes # (Auto) 1.0 0.4-5.4 10 ^3/uL Monocytes # (Auto) 0.8 0-1.3 10 ^3/uL Eosinophils # (Auto) 0.1 0-0.8 10 ^3/uL Basophils # (Auto) 0 0-0.2 10 ^3/uL Nucleated Red Blood Cells 0.0 % Sodium Level 139 136-145 mmol/L Potassium Level 4.4 3.5-5.1 mmol/L Chloride Level 104 98-107 mmol/L Carbon Dioxide Level 25 20-31 mmol/L Anion Gap 10 5-15 Blood Urea Nitrogen 22 9-23 mg/dL Creatinine 2.06 #H 0.550-1.02 mg/dL Glomerular Filtration Rate Calc 25 >90 mL/min BUN/Creatinine Ratio 10.7 10.0-20.0 Serum Glucose 114 H 74-106 mg/dL Calcium Level 9.8 8.7-10.4 mg/dL Total Bilirubin 0.5 0.2-1.0 mg/dL Aspartate Amino Transferase (AST) 14 13-40 U/L Alanine Aminotransferase (ALT) 15 7-40 U/L Alkaline Phosphatase 80 46-116 U/L Total Protein 6.6 5.7-8.2 g/dL Albumin 4.0 3.2-4.8 g/dL Test 03/22/24 05:36 03/22/24 01:25 03/22/24 00:26 03/21/24 23:40 Range/Units Troponin I High Sensitivity 655 *H </=34 ng/L B-Type Natriuretic Peptide 463.70 0-100 pg/mL Venous Blood pH 7.368 7.320-7.430 Venous Blood pCO2 at Patient Temp 39.1 38.0-54.0 mmHg Venous Blood pO2 at Patient Temp < 36.5 23.0-48.0 mmHg Venous Blood HCO3 22.0 22.0-29.0 mmol/L Venous Blood Base Excess -3.0 L -2.0-3.0 mmol/L Urine Color Yellow Yellow Urine Clarity Clear Clear Urine pH 5.5 5.0-9.0 Urine Specific [place] 1.029 1.001-1.035 Urine Protein Trace H Negative Urine Ketones 1+ H Negative Urine Blood Negative Negative /uL Urine Nitrite Negative Negative Urine Bilirubin Negative Negative Urine Urobilinogen Normal Negative mg/dL Urine Leukocyte Esterase Negative Negative /uL Urine RBC 1 0 - 4 /hpf Urine WBC <1 0 - 5 /hpf Urine Squamous Epithelial Cells Few <5 /hpf Urine Calcium Oxalate Crystals Few None Seen Urine Bacteria None seen None Seen /hpf Urine Hyaline Casts Few 0 - 2 /lpf Urine Mucus Few None Seen Urine Glucose Normal Normal mg/dL Assessment MARI likely hemodynamically mediated in setting of massive PE and CKD stage III VS contrast nephropathy Acute bilateral PE with right heart strain Acute left lower extremity DVT NSTEMI type 2 likely due to PE Acute respiratory failure Severe right ventricular dysfunction Elevated pulmonary hypertension likely due to PE History of hypertension Hyperlipidemia Diabetes mellitus type 2 Possible pancreatic mass Left adrenal nodules Plan/recommendation -continue IV Lasix 40 mg b.i.d. for preload reduction in setting of right ventricular strain. -recommended maintaining map greater than 65 given fluctuating blood pressure, minimal recorded blood pressure systolic at 90, map at 68. Can add vasopressor if needed. -echocardiogram showed ejection fraction 55%, severely reduced right ventricular function, RVSP 55 mmHg. -elevated troponin likely due to PE. Cardiology continued following up. -plan for pulmonary thrombectomy by aircraft sheet metal mechanic. -ordered urine sodium, creatinine, protein creatinine ratio. -Juan A Score for Post-PCI Contrast Nephropathy:14.0 %Risk of any post-PCI J[place] 0.12 % Risk of post-PCI JER[place] requiring dialysis -rest of the management per primary care team. Addendum Patient seen and examined, plan discussed with resident. Agree with above, we will follow closely Consider GI eval to rule out pancreatic cancer Plan discussed with: Patient, Other (RN) ÁNGELA ALCANTARA RESIDENT Mar 24, 2024 16:54 LUCÍA NEAL MD Mar 25, 2024 20:14
[2024-03-24] MEDS: FUROSEMIDE 40 MG/4 ML VIAL IV SCH (18:33)
--- NOTE | 2024-03-24 20:24 | DVHPN2 ---
Progress Note - Dictate Date Seen: Mar 24, 2024 Medical Necessity Reason Pt with a Central, PICC or Fol: Yes The following are medically ne: Franco Catheter Reason for franco catheter: Strict I&O Subjective Patient seen and examined at bedside. Remains on BiPAP Overnight events reviewed. vital signs Vital Sign Date Time Temp Pulse Resp B/P (MAP) Pulse Ox O2 Delivery O2 Flow Rate FiO2 03/24/24 18:33 90/54 03/24/24 18:00 73 16 99 03/24/24 15:53 Facial BiPAP Mask 90 03/24/24 07:25 97.3 97.3 03/23/24 13:59 70.0 Total Intake and Output 03/23/24 03/23/24 03/24/24 15:00 23:00 07:00 Intake Total 89.48 ml 91 ml 52 ml Balance 89.48 ml 91 ml 52 ml medications Current Medications Medications Dose Ordered Sig/Shawn Route Start Time Stop Time Status Last Admin Dose Admin Albuterol 2.5 mg Q4HPRN PRN NEB 03/22/24 02:30 03/23/24 13:59 2.5 MG Ipratropium [place] 0.5 mg Q4HPRN PRN NEB 03/22/24 02:30 03/23/24 13:59 0.5 MG Atorvastatin Calcium 40 mg HS PO 03/22/24 22:00 03/23/24 21:41 40 MG Clopidogrel Bisulfate 75 mg DAILY PO 03/22/24 10:00 03/24/24 11:59 75 MG Sodium Chloride 10 ml Q8HR IV 03/22/24 06:00 03/24/24 14:00 10 ML Acetaminophen/ Hydrocodone Bitart 1 tab Q4HP PRN PO 03/22/24 02:30 Hold 03/23/24 10:40 1 TAB Docusate Sodium 100 mg BIDPRN PRN PO 03/22/24 02:30 Acetaminophen 650 mg Q6HP PRN PO 03/22/24 02:30 Nitroglycerin 0.4 mg Q5MINP PRN SL 03/22/24 03:00 Morphine Sulfate 2 mg Q30M PRN IV 03/22/24 03:00 03/22/24 14:17 2 MG Calcium Carbonate 500 mg TIDWM PO 03/22/24 08:00 12/9/24 18:34 500 MG Morphine Sulfate 4 mg Q4HPRN PRN IV 03/22/24 14:30 03/23/24 19:53 4 MG Ondansetron HCl 4 mg Q4HPRN PRN IV 03/22/24 14:30 03/22/24 16:56 4 MG Heparin Sodium/ Dextrose 250 ml @ 13 mls/hr [id number] IV 03/22/24 22:45 03/24/24 15:24 13 MLS/HR Furosemide 40 mg BIDD IV 03/24/24 18:00 objective Gen.: Patient lying in bed in no apparent distress. On BiPAP Head: Normocephalic, atraumatic. Eyes: EOMI/PERRLA. Ears: Normal hearing. Normal anatomy. Neck/trachea: Trachea midline, supple. Nose: Normal external anatomy. Mouth: Moist mucous membranes. Chest: Decreased air entry bilaterally. No wheezing or rhonchi. Cardiovascular: Positive S1, positive S2. Regular rate and rhythm. Abdomen: Positive bowel sounds in all 4 quadrants. Soft, non-tender, non- distended. : Deferred. Rectal: Deferred. Skin: Warm, dry. Intact. Extremities: 2+ radial pulses bilaterally. No lower extremity edema. Neuro: Awake, alert, oriented x3. No gross motor or sensory deficits. Cranial nerves II through XII intact. Gait not assessed. laboratory and microbiology Laboratory Tests 03/23/24 06:22 Test 03/23/24 06:22 Range/Units Serum Glucose 114 H 74-106 mg/dL Assessment/Plan Impression: Acute chest pain Acute respiratory distress Pulmonary emboli Acute renal injury Non-ST elevation myocardial infarction Acute exacerbation of congestive heart failure Events: Remains on BiPAP with IPAP 14, EPAP 7 FiO2 tapered to 90%. ABG reviewed, compensated. CXR notable for cardiomegaly with bibasilar opacities. Continue heparin drip per pharmacy protocol. Awaiting Echo to evaluate for RV strain. Monitor respiratory status closely - high risk for intubation. Bronchodilators PRN Diurese w/ Lasix as tolerated Monitor renal function. Monitor electrolytes. Supplement as necessary. Head of bed elevation Aspiration precautions Labs and imaging reviewed. Rest of plan as noted below. Plan: BiPAP with IPAP 14, EPAP 7, FiO2 of 90%. Titrate to keep O2 sats above 92%. Continue bronchodilators. On heparin drip. Pain control Avoid oversedation Cardiology recommendations appreciated. Diurese w/ Lasix IV 40 mg QD Monitor renal function. Monitor electrolytes. Supplement as necessary. Monitor ins and outs. DVT prophylaxis. Prognosis: Poor given patient's multiple co-morbidities. Condition: Critical Rest of plan per hospitalist and other consultants. A total of 35 minutes of critical care time was spent reviewing the patient record, examining the patient, making a diagnostic and therapeutic plan, discussing this plan with the medical personnel, following up on diagnostic studies and following the patient for clinical stability excluding any and all procedures. At least 50% of this time was spent in direct, [id number] contact. Thank you Dr. Alexy Watson MD, for allowing me to participate in this patient's care. Further recommendations will depend on the patient's clinical course. Please do not hesitate to contact me if you have any questions or concerns. This medical document was created using an electronic medical record system with [employer] computerized dictation system. Although these documentations are being carefully reviewed, there may still be some phonetic and typographical changes. The errors are purely typographical, due to imperfection on the software program, and do not reflect any compromise in the patient's medical care. Plan discussed with: Other (RN) Critical Care Time(min): 35 NAVEEN QUINTANILLA MD Mar 24, 2024 20:24
[2024-03-24 20:45] LABS: INR 1.08 (0.9-1.15); Partial Thromboplastin Time 54.1 SEC (24.5-34.5); Prothrombin Time 11.4 sec (9.3-11.8)
[2024-03-25] VITALS (34 sets, daily range): BP systolic 90–122; BP diastolic 47–79; PULSE 64–87; RESP 13–26; TEMP 98; O2SAT 89–100
[2024-03-25 02:50] LABS: INR 1.09 (0.9-1.15); Partial Thromboplastin Time 58.9 SEC (24.5-34.5); Prothrombin Time 11.5 sec (9.3-11.8)
[2024-03-25 05:27] LABS: Basophils # (auto) 0 10 ^3/uL (0-0.2); Basophils % (auto) 0.4 % (0.0-2.0); Eosinophils # (auto) 0.2 10 ^3/uL (0-0.8); Eosinophils % (auto) 2.3 % (0.0-7.0); Hematocrit 31.2 % (36.0-46.0); Hemoglobin 10.6 g/dL (12.2-16.2); Lymphocytes % (auto) 14.2 % (10.0-50.0); Mean Corpuscular Hemoglobin 28.4 pg (28.0-32.0); Mean Corpuscular Hgb Conc. 33.9 g/dL (32.0-36.0); Mean Corpuscular Volume 83.8 fL (80.0-100.0); Monocytes # (auto) 0.6 10 ^3/uL (0-1.3); Monocytes % (auto) 8.6 % (0.0-12.0); Neutrophils # (auto) 5.5 10 ^3/uL (1.6-8.6); Neutrophils % (auto) 74.5 % (37.0-80.0); Nucleated Red Blood Cells % 0.1 %; Platelet Count (auto) 222 10^3/uL (140-450); Red Blood Cells 3.73 10^6/uL (4.0-5.20); Red Cell Distribution Width 16.9 % (11.8-14.3); White Blood Cell 7.4 10^3/uL (4.4-10.8)
[2024-03-25 05:37] LABS: Alanine Aminotransferase 12 U/L (7-40); Alkaline Phosphatase 80 U/L (46-116); Anion Gap 7 (5-15); BUN/Creatinine Ratio 20.3 (10.0-20.0); Calcium 9.7 mg/dL (8.7-10.4); Carbon Dioxide 28 mmol/L (20-31); Chloride 103 mmol/L (98-107); Glucose 104 mg/dL (74-106); Potassium 3.8 mmol/L (3.5-5.1); Sodium 138 mmol/L (136-145)
[2024-03-25 05:38] LABS: Albumin 3.9 g/dL (3.2-4.8)
[2024-03-25 05:39] LABS: Bilirubin, Total 0.4 mg/dL (0.2-1.0); Total Protein 6.7 g/dL (5.7-8.2)
[2024-03-25 05:52] LABS: Aspartate Aminotransferase 11 U/L (13-40); Blood Urea Nitrogen 31 mg/dL (9-23)
--- NOTE | 2024-03-25 10:29 | DVHPN2 ---
Subjective Patient continues to reports shortness of breath. Reviewed: Care Plan, H&P, Labs, Medications, Previous Orders, Radiology Changes from previous H/P or p: No Changes General: Per HPI Eyes: No Pain, No Vision change, No Conjunctivae inflammation, No Eyelid inflammation, No Other, No Redness ENT: No Ear pain, No Ear discharge, No Nose pain, No Nose discharge, No Nose congestion, No Mouth pain, No Mouth swelling, No Throat pain, No Throat swelling, No Other Cardiovascular: Chest Pain; No Palpitations, No Orthopnea, No Paroxysmal Noc. Dyspnea, No Edema, No Lt Headedness, No Other Respiratory: No Cough, No Dry; Shortness of breath; No SOB with excertion, No Wheezing, No Hemoptysis, No Pleuritic Pain, No Sputum; Other (SOB at rest) Gastrointestinal: No Nausea, No Vomiting; Abdominal Pain; No Diarrhea, No Constipation, No Melena, No Hematochezia, No Other Genitourinary: No Dysuria, No Frequency, No Incontinence, No Hematuria, No Retention, No Other Musculoskeletal: No other, No neck pain, No shoulder pain, No arm pain, No back pain, No hand pain, No leg pain, No foot pain Skin: No Rash, No Lesions, No Jaundice, No Bruising, No Other Objective Vitals Vital Signs Date Time Temp Pulse Resp B/P (MAP) Pulse Ox O2 Delivery O2 Flow Rate FiO2 03/25/24 09:02 67 96/66 98 Facial BiPAP Mask 75 03/25/24 07:22 13 03/25/24 07:22 97.5 97.5 03/23/24 13:59 70.0 Intake/Output Intake and Output 03/25/24 06:59 Intake Total 312 ml Output Total 1750 ml Balance -1438 ml Intake IV Total 312 ml Output Urine Total 1750 ml General Appearance: Alert, Oriented X3, Cooperative, moderate distress HEENT: Atraumatic, PERRLA Lungs: Clear to auscultation, Normal air movement Cardiovascular: Normal S1, Normal S2, Other (ST depression) Abdomen: Normal bowel sounds, No tenderness Genitourinary: No Apparent Abnormalities Musculoskeletal: Normal sensory function, Normal motor function Extremities: Normal pulses Neuro: Normal gait, Normal speech Skin: Dry, Intact Psych/Mental Status: Mental status NL, Mood NL Medications Current Medications Medications Dose Ordered Sig/Shawn Route Start Time Stop Time Status Last Admin Dose Admin Albuterol 2.5 mg Q4HPRN PRN NEB 03/22/24 02:30 03/23/24 13:59 2.5 MG Ipratropium [place] 0.5 mg Q4HPRN PRN NEB 03/22/24 02:30 03/23/24 13:59 0.5 MG Atorvastatin Calcium 40 mg HS PO 03/22/24 22:00 03/23/24 21:41 40 MG Clopidogrel Bisulfate 75 mg DAILY PO 03/22/24 10:00 03/25/24 10:16 75 MG Sodium Chloride 10 ml Q8HR IV 03/22/24 06:00 03/24/24 21:41 10 ML Acetaminophen/ Hydrocodone Bitart 1 tab Q4HP PRN PO 03/22/24 02:30 Hold 03/23/24 10:40 1 TAB Docusate Sodium 100 mg BIDPRN PRN PO 03/22/24 02:30 Acetaminophen 650 mg Q6HP PRN PO 03/22/24 02:30 Nitroglycerin 0.4 mg Q5MINP PRN SL 03/22/24 03:00 Morphine Sulfate 2 mg Q30M PRN IV 03/22/24 03:00 03/22/24 14:17 2 MG Calcium Carbonate 500 mg TIDWM PO 03/22/24 08:00 03/25/24 08:37 500 MG Morphine Sulfate 4 mg Q4HPRN PRN IV 03/22/24 14:30 03/25/24 02:28 4 MG Ondansetron HCl 4 mg Q4HPRN PRN IV 03/22/24 14:30 03/25/24 02:37 4 MG Heparin Sodium/ Dextrose 250 ml @ 13 mls/hr [id number] IV 03/22/24 22:45 03/25/24 09:30 13 MLS/HR Furosemide 40 mg BIDD IV 03/24/24 18:00 03/25/24 05:35 40 MG Piperacillin Sod/ Tazobactam Sod 100 ml @ 25 mls/hr Q8HR IV 03/25/24 14:00 Laboratory Results Laboratory Tests 03/25/24 04:49 Chemistry Test 03/25/24 04:49 Albumin 3.9 g/dL (3.2-4.8) Calcium Level 9.7 mg/dL (8.7-10.4) Total Protein 6.7 g/dL (5.7-8.2) Coagulation Test 03/24/24 20:14 03/25/24 02:18 Prothrombin Time 11.4 sec (9.3-11.8) 11.5 sec (9.3-11.8) Prothrombin Time INR 1.08 (0.9-1.15) 1.09 (0.9-1.15) Activated Partial Thromboplast Time 54.1 SEC (24.5-34.5) H 58.9 SEC (24.5-34.5) H LFT Test 03/25/24 04:49 Alanine Aminotransferase (ALT) 12 U/L (7-40) Alkaline Phosphatase 80 U/L (46-116) Aspartate Amino Transferase (AST) 11 U/L (13-40) L Total Bilirubin 0.4 mg/dL (0.2-1.0) Urinalysis Test 03/21/24 23:40 Urine Color Yellow (Yellow) Urine Clarity Clear (Clear) Urine pH 5.5 (5.0-9.0) Urine Specific [place] 1.029 (1.001-1.035) Urine Protein Trace (Negative) H Urine Ketones 1+ (Negative) H Urine Blood Negative /uL (Negative) Urine Nitrite Negative (Negative) Urine Bilirubin Negative (Negative) Urine Urobilinogen Normal mg/dL (Negative) Urine Leukocyte Esterase Negative /uL (Negative) Urine RBC 1 /hpf (0 - 4) Urine WBC <1 /hpf (0 - 5) Urine Squamous Epithelial Cells Few /hpf (<5) Urine Calcium Oxalate Crystals Few (None Seen) Urine Bacteria None seen /hpf (None Seen) Urine Hyaline Casts Few /lpf (0 - 2) Urine Mucus Few (None Seen) Urine Glucose Normal mg/dL (Normal) Blood Gas Results Test 03/24/24 11:55 Arterial Blood pH 7.412 (7.350-7.450) FiO2 % 90.0 Labs and/or images reviewed: Labs reviewed by me, Image(s) reviewed by me Assessment/Plan Assessment/Plan Impression: -acute hypoxic respiratory failure secondary to pulmonary embolism -pulmonary embolism with right ventricular strain -NSTEMI type 2 secondary to pulmonary embolism and right ventricular strain -acute kidney injury -pancreatic head mass -probable DVT to left lower extremity -diabetes mellitus -primary hypertension -dyslipidemia Plan: -events: Discussion made with Pilar Cleveland NP regarding plan of care. Apparently, the patient was on scheduled yesterday for thrombectomy with Interventional Radiology, who deemed the procedure not necessary. Discussion made with Cardiology regarding the persistent FiO2 requirements of 100% as well as the patient not improving with overall clinical status. Both CT angiogram as well as echocardiogram reveals severe RV strain. Patient may benefit from catheter directed infusion of tPA which was discussed with Pilar Cleveland yesterday, if thrombectomy not beneficial. Supposedly, patient was to go to labor and delivery registered nurse today for intervention. -continue heparin drip -continue aspirin and Plavix at this time per Cardiology. -continue O2 supplementation to keep saturation greater than 92%. Continues to be on BiPAP -regular insulin sliding scale -DVT study of lower extremities -regular insulin sliding scale -statins -abdominal ultrasound to assess pancreatic mass, liver, right lower quadrant pain -social service consultation regarding transfer. Patient was unstable to transfer to [facility] and given severe hypoxia and PE Critical care time spent with patient discussing and formulating plan of care: 40 minutes. This does not include time spent performing procedures. This medical document was created using an electronic medical record system with [employer] dictation system. Although this document has been carefully reviewed, there may still be some phonetic and typographical errors. These areas are purely typographical due to imperfections of the software programs, and do not reflect any compromise in the patient's medical care. Plan discussed with: Patient, Other (RN) My Orders Orders - SOPHY SAMSON NP Procedure Category Date Status Time Bilat Lower Dvt US 03/24/24 Resulted 11:51 Abdomen Complete US 03/24/24 Resulted Sonogram 12:10 *Dr. [facility] CONS 03/24/24 Transmitted -[place] 12:12 Right Lower Quad US 03/24/24 Resulted Chest Xray 1 View XY 03/24/24 Resulted 12:29 * Road Freight Brake Coupler CONS 03/24/24 Transmitted Consult Piperacillin-Tazob PHA 03/25/24 In Process 3.375gm (Zosyn 3.375g 14:00 Date of Service: Mar 25, 2024 Billing Provider: SOPHY SAMSON NP Common Visit Codes: [id number] CARE 30-74 MIN SOPHY SAMSON NP Mar 25, 2024 10:29
[2024-03-25] MEDS: HEPARIN IN NS 1000Units/500mL 1,500 ML ONE (14:52)
[2024-03-25] MEDS: IODIXANOL 320MG/ML 100ML BTL IV ONE (14:52)
[2024-03-25] MEDS: MIDAZOLAM HCL 2MG/2ML 2ml VIAL (1mg/ml) ONE (15:04)
[2024-03-25] MEDS: fentaNYL CITRATE 100 MCG/2 ML VL ONE ×2 (15:04→17:00)
[2024-03-25] MEDS: LIDOCAINE 2%HCL (LOCAL ANESTH.) INJ 20ML MDV ONE (15:04)
[2024-03-25] MEDS: HEPARIN SODIUM (PORCINE) 5000 UNITS/ML 1ML VIAL ONE (15:05)
[2024-03-25] MEDS: VERAPAMIL 2.5MG/ML INJ 2ML VIAL IV ONE (15:06)
[2024-03-25] MEDS ORDERED: LOSA-534 PO (15:58)
--- NOTE | 2024-03-25 16:19 | DVHPN2 ---
Progress Note Date Seen: Mar 25, 2024 Resident Creating Document: ÁNGELA ALCANTARA RESIDENT Medical Necessity Reason Pt with a Central, PICC or Fol: Yes The following are medically ne: Franco Catheter Reason for franco catheter: Strict I&O Subjective Review of Systems History of Present Illness Patient is 73-year-old woman with past medical history of hypertension, diabetes mellitus type 2, hyperlipidemia, CVA with left-sided residual weakness who presented to emergency department with chief complaint of shortness of breath. Given progressively worsened shortness of breath, nonradiating, substernal, during ED workup CT scan showed pancreatic mass with possible mass, CT angio showed bilateral pulmonary emboli consistent with right heart strain. Cardiology consultation was done and plan for pulmonary thrombectomy tomorrow morning. Nephrology consultation has been done for worsening acute kidney injury. Creatinine trending up from 1.51 two 2.06. Elevated troponin at 655, BNP 463. Echocardiogram showed left ventricular ejection fraction 55%, RVSP 55 mm and mildly dilated right and left atria. No any other new complaints. Past Medical History Hypertension, hyperlipidemia, diabetes mellitus type 2, CVA with left-sided weakness. Patient seen and examined at bedside. Currently on BiPAP. Plan for thrombectomy today. No other new complaints from patient. Objective vital signs Vital Sign Date Time Temp Pulse Resp B/P (MAP) Pulse Ox O2 Delivery O2 Flow Rate FiO2 03/25/24 15:04 75 17 96/47 94 15.0 90 03/25/24 12:55 Facial BiPAP Mask 03/25/24 07:22 97.5 97.5 Total Intake and Output 03/24/24 03/24/24 03/25/24 15:00 23:00 07:00 Intake Total 104 ml 104 ml 104 ml Output Total 1000 ml 750 ml Balance -896 ml -646 ml 104 ml medications Current Medications Medications Dose Ordered Sig/Shawn Route Start Time Stop Time Status Last Admin Dose Admin Albuterol 2.5 mg Q4HPRN PRN NEB 03/22/24 02:30 03/23/24 13:59 2.5 MG Ipratropium [place] 0.5 mg Q4HPRN PRN NEB 03/22/24 02:30 03/23/24 13:59 0.5 MG Atorvastatin Calcium 40 mg HS PO 03/22/24 22:00 03/23/24 21:41 40 MG Clopidogrel Bisulfate 75 mg DAILY PO 03/22/24 10:00 03/25/24 10:16 75 MG Sodium Chloride 10 ml Q8HR IV 03/22/24 06:00 03/24/24 21:41 10 ML Acetaminophen/ Hydrocodone Bitart 1 tab Q4HP PRN PO 03/22/24 02:30 Hold 03/23/24 10:40 1 TAB Docusate Sodium 100 mg BIDPRN PRN PO 03/22/24 02:30 Acetaminophen 650 mg Q6HP PRN PO 03/22/24 02:30 Nitroglycerin 0.4 mg Q5MINP PRN SL 03/22/24 03:00 Morphine Sulfate 2 mg Q30M PRN IV 03/22/24 03:00 03/22/24 14:17 2 MG Calcium Carbonate 500 mg TIDWM PO 03/22/24 08:00 03/25/24 12:18 500 MG Morphine Sulfate 4 mg Q4HPRN PRN IV 03/22/24 14:30 03/25/24 02:28 4 MG Ondansetron HCl 4 mg Q4HPRN PRN IV 03/22/24 14:30 03/25/24 02:37 4 MG Heparin Sodium/ Dextrose 250 ml @ 13 mls/hr [id number] IV 03/22/24 22:45 03/25/24 09:30 13 MLS/HR Piperacillin Sod/ Tazobactam Sod 100 ml @ 25 mls/hr Q8HR IV 03/25/24 14:00 Sodium Chloride 1,000 ml @ 75 mls/hr [id number] IV 03/25/24 13:30 Examination General Appearance: Cooperative. In mild acute distress. Head Exam: Normal inspection Neck Exam: Normal inspection. Non-tender. Normal alignment Pulmonary/Respiratory: Chest non-tender. Clear bilateral breath sounds, on BiPAP. Cardiovascular/Chest: Regular rate and rhythm. No murmurs. No JVD. Peripheral Pulses: 2+ Radial (R). 2+ Radial (L). 2+ Pedal (R). 2+ Pedal (L) Abdominal Exam: Normal bowel sounds. Soft. Nontender. No hepatospenomegaly. No masses Ankle Exam: Negative ankle edema Lower extremities: Negative lower extremity edema Neuro/Mental Status: A&O x4. Coherent laboratory and microbiology Laboratory Tests 03/25/24 04:49 Test 03/25/24 04:49 Range/Units Serum Glucose 104 74-106 mg/dL Problem List/Assessment/Plan Problem List/Assessment/Plan MARI likely hemodynamically mediated in setting of massive PE and CKD stage III VS contrast nephropathy Acute bilateral PE with right heart strain Acute left lower extremity DVT NSTEMI type 2 likely due to PE Acute respiratory failure Severe right ventricular dysfunction Elevated pulmonary hypertension likely due to PE History of hypertension Hyperlipidemia Diabetes mellitus type 2 Possible pancreatic mass Left adrenal nodules Plan/recommendation -hold Lasix after mechanical thrombectomy procedure. Initiate IV fluid normal saline 75 mL/hour. -recommended maintaining map greater than 65 given fluctuating blood pressure, minimal recorded blood pressure systolic at 90, map at 68. Can add vasopressor if needed. -echocardiogram showed ejection fraction 55%, severely reduced right ventricular function, RVSP 55 mmHg. -elevated troponin likely due to PE. Cardiology continued following up. -plan for pulmonary thrombectomy by director of professional services today. -ordered urine sodium, creatinine, protein creatinine ratio. -Juan A Score for Post-PCI Contrast Nephropathy:14.0 %Risk of any post-PCI [place] 0.12 % Risk of post-PCI [place] requiring dialysis -rest of the management per primary care team. Addendum Patient seen and examined, plan discussed with resident. Agree with above, we will follow closely Consider GI eval to rule out pancreatic cancer Plan discussed with: Patient My Orders My Orders Orders - ÁNGELA ALCANTARA Procedure Category Date Status Time Sodium Chloride 0.9% PHA 03/25/24 In Process 13:30 Communication Order ORDERS 03/25/24 Transmitted 13:17 Critical Care Time (mins): 45 ÁNGELA ALCANTARA Mar 25, 2024 16:19 LUCÍA NEAL MD Mar 25, 2024 20:15
[2024-03-25] MEDS: NOREPINEPHRINE 8 MG/250ML KIT 0 ML IV ONE (16:53)
--- NOTE | 2024-03-25 18:22 | DVHOP2 ---
Operative Report - 2 Report Details Date: 03/25/24 Preop Diagnosis: Massive pulmonary embolism mainly involving the right main pulmonary artery. With the severe hypoxemia and hypotension requiring high oxygen flow on Oxymizer. To keep oxygen sat above 90%. Patient continues to require high-flow oxygen for which mechanical thrombectomy was advised to help her breathing and improve her hemodynamics. There was also evidence of RV strain by ec hocardiography as well as by CT scan. Postop Diagnosis: Patient underwent successfully right pulmonary artery mechanical thrombectomy using in artery flow retriever 24 Indonesian device also we used the 20 degree curved catheter to reach to the right lower lobar artery clot. At the end of the case, we applied a permanent IVC filter in the infrarenal position. Surgeon: Addie Schneider MD Anesthesiologist: Conscious sedation using25 mcg of fentanyl as well as a mg IV midazolam. It was given under direct supervision of the primary engineering supervisor myself in the presence of the attending nurses. Patient was monitored for total of2 hours without obvious complication. Anesthesia: Local Consent: The patient was informed of the risks and benefits of the procedure. These include but are not limited to complications of anesthesia, postoperative infection, incomplete relief of symptoms, recurrence of symptoms, damage to blood vessels, nerves and tendons, deep venous thrombosis, pulmonary embolism and possible need for repeat surgery in the future. Indications for Surgery: 73-year-old female with PMH for HTN, HLD, dm, CVA with residual weakness on Plavix presents to the hospital with chest pain and shortness of breath. Patient states she has been having progressively worsening shortness of breath especially with exertion. Patient also endorses retrosternal, nonradiating, pressure chest pain, increases with inspiration, at times constant and at times and intermittent. Upon evaluation in the ER patient noted to have elevated troponins trending 519, 460, 568, 547, and 655. Creatinine elevated at 1.55. Pro BNP 463. CXR showed mild cardiomegaly with mild pulmonary vascular congestion. CT angio done and showed bilateral pulmonary emboli with findings consistent with right heart strain. CT also shows pancreatic neck with possible mass. EKG reviewed and shows sinus rhythm with nonspecific ST and T-wave abnormality. Name of Procedure Performed 1. Ultrasound-guided right femoral venous access. 2. Common femoral vein and inferior vena cava venogram to rule out iliac and common femoral vein clot. 3. Right heart catheterization using a curved pigtail, 4. Right and left the pulmonary arterial cine angiography 3. Placement of clot retriever in the artery device throughout 24 Indonesian sheath 4. Successful retrieval of a clot from the right main and right lower interlobar artery using multiple techniques including mechanical fragmentation and manual aspiration. 5. Successful placement of [employer] permanent IVC filter to the infrarenal IVC. 6. Conscious sedation using25 mcg of fentanyl as well as a mg of midazolam. 7. Closure of the right femoral venous access using figure of eight suture as well as flow stasis. Procedure Details Procedure Details: Procedure note and vascular access: After an informed consent was obtained, risks, benefits, complications, and alternatives were discussed in details with the patient who agrees to have the procedure done. At the beginning of the procedure, the right and left groin area were prepped and draped in the regular sterile fashion, patient received conscious sedation using25 mcg of fentanyl as well as a mg IV midazolam with the direct supervision of the primary card iologist. Total of 10 cc of 1% xylocaine was instilled through the right groin area. Followed which an ultrasound-guided micropuncture was done to the anterior wall of the right femoral vein and this was exchanged for a six Indonesian sheath using modified Seldinger technique without difficulty. Then a right heart catheterization was obtained using curved pigtail catheter with the f bradening findings: 1. Right femoral vein/iliacs and IVC venogram: With the help of a care pigtail over a J-tip wire, we were able to advance it to the different location in the territory of the IVC common femoral vein and iliacs this Revealed no evidence of filling defects at all venous segments. 2. Right heart catheterization pre and post intervention: With the help of a curved pigtail as well as a [place] J-tip wire we were able to measure the pressure in the right atrium right ventricle I was well as the pulmonary artery pressures findings were as follows including peak systolic, peak diastolic, and mean pressure respectively. Patient hemodynamics shows saturation of 84% on 10 L high-flow Oxymizer, blood pressure was 77/80 with a heart rate of 90. After intervention saturation improved to 89% on 10 L high- flow Oxymizer with a blood pressure was 99 over 80. Right heart catheterization readings were as follows pre and post respectively: 1. Right atrial pressure was 11/7/9 mm of mercury pre and post unchanged. 2. Right ventricular pressure was 55/6/16/pre and 49/6/14 post 3. Pulmonary artery pressure was 60/12/17 pre and post was 55/6/16 mmhg. 3: Right and left pulmonary artery cine angiography: With the help of the care pigtail we were able to do digital subtraction angiography for both left and right pulmonary artery, this shows widely patent left main pulmonary artery without significant of clot burden on the left sub lobar branches. However the right pulmonary artery venogram revealed a large clot burden involving mainly the lower interlobar artery almost the size of a tennis ball, we was 10 x 5 mm oval shaped filling defect. 4. Clot retrieval using not a Clot-retriever 4 Indonesian system as well as the curve 20 degree 16 Indonesian system. The regular J-tip wire was exchanged for the stiff Amplatzer with a floppy tip wire, then with the help of the VT K guiding catheter we were able to directly stiff Amplatzer to the right pulmonary artery before clot retrieval with a dilator was advanced all the way to the right main pulmonary artery. Then multiple sweeps with a negative pressure manual thrombectomy was used in different locations with a moderate amount of clot being retrieved. Clot were very sticky and very hard indicating coronary artery city of the clotting. After clots were retrieved, syringes were filtered using flow filter device with a three transfusion of blood through the side port of the24 Indonesian sheath. Minimal blood loss was obtained. 5. Successful implantation of infrarenal IVC filter: Via the 24 Indonesian sheath we were able to advance destination sheath with a dilator all the way to the infrarenal part of the IVC, ascending venogram was done to confirm the location, then additionally IVC filter was advanced through the loading sheath all the way to the infrarenal position before it was deployed successfully, location was confirmed in position, no embolization was noted. No obvious complications. 6. Closure of the right femoral venous access: The IVC filter sheath was retrieved over the wire and the24 Indonesian sheath with a clot retriever were retrieved as well over the wire. Finally the right femoral venous access was closed with a figure of eight suture that was clamped to the skin using flow stasis device with excellent hemostasis. Impression and plan: 1. Successful clot retrieval of moderate amount of clot from the right lower interlobar pulmonary artery using a 24 Indonesian clot retriever in LOZANO device. 2. Successful implantation of an IVC in the infrarenal position of the inferior vena cava without complication. 3. Patient would need continuous IV heparin until she is hemodynamically stable with a low flow oxygen requirement, and then she would need to be switched to either novel oral anticoagulants versus low molecular weight heparin given history of possible cancer. 4. Consider oncology consult to assess for therapy and prognosis. Condition Fair Disposition ADDIE SCHNEIDER MD Mar 25, 2024 18:22
[2024-03-25 20:30] LABS: INR 1.13 (0.9-1.15); Prothrombin Time 11.9 sec (9.3-11.8)
[2024-03-25] MEDS: PIPERACILLIN-TAZOB 3.375GM 100 ML IV SCH (22:00)
[2024-03-25] MEDS: SODIUM CHLORIDE 0.9% 1,000 ML IV SCH (22:40)
--- NOTE | 2024-03-25 23:09 | DVHPN2 ---
Progress Note - Dictate Date Seen: Mar 25, 2024 Medical Necessity Reason Pt with a Central, PICC or Fol: Yes The following are medically ne: Franco Catheter Reason for franco catheter: Strict I&O Subjective Patient seen and examined at bedside. Remains on BiPAP Overnight events reviewed. vital signs Vital Sign Date Time Temp Pulse Resp B/P (MAP) Pulse Ox O2 Delivery O2 Flow Rate FiO2 03/25/24 19:00 87 14 93/68 (76) 98 03/25/24 15:04 15.0 90 03/25/24 12:55 Facial BiPAP Mask 03/25/24 07:22 97.5 97.5 Total Intake and Output 03/24/24 03/24/24 03/25/24 15:00 23:00 07:00 Intake Total 104 ml 104 ml 104 ml Output Total 1000 ml 750 ml Balance -896 ml -646 ml 104 ml medications Current Medications Medications Dose Ordered Sig/Shawn Route Start Time Stop Time Status Last Admin Dose Admin Albuterol 2.5 mg Q4HPRN PRN NEB 03/22/24 02:30 03/23/24 13:59 2.5 MG Ipratropium [place] 0.5 mg Q4HPRN PRN NEB 03/22/24 02:30 03/23/24 13:59 0.5 MG Atorvastatin Calcium 40 mg HS PO 03/22/24 22:00 03/25/24 22:32 40 MG Clopidogrel Bisulfate 75 mg DAILY PO 03/22/24 10:00 03/25/24 10:16 75 MG Sodium Chloride 10 ml Q8HR IV 03/22/24 06:00 03/25/24 22:00 10 ML Acetaminophen/ Hydrocodone Bitart 1 tab Q4HP PRN PO 03/22/24 02:30 Hold 03/23/24 10:40 1 TAB Docusate Sodium 100 mg BIDPRN PRN PO 03/22/24 02:30 Acetaminophen 650 mg Q6HP PRN PO 03/22/24 02:30 Nitroglycerin 0.4 mg Q5MINP PRN SL 03/22/24 03:00 Morphine Sulfate 2 mg Q30M PRN IV 03/22/24 03:00 03/22/24 14:17 2 MG Calcium Carbonate 500 mg TIDWM PO 03/22/24 08:00 03/25/24 12:18 500 MG Morphine Sulfate 4 mg Q4HPRN PRN IV 03/22/24 14:30 03/25/24 02:28 4 MG Ondansetron HCl 4 mg Q4HPRN PRN IV 03/22/24 14:30 03/25/24 02:37 4 MG Heparin Sodium/ Dextrose 250 ml @ 13 mls/hr [id number] IV 03/22/24 22:45 03/25/24 09:30 13 MLS/HR Piperacillin Sod/ Tazobactam Sod 100 ml @ 25 mls/hr Q8HR IV 03/25/24 14:00 03/25/24 22:00 25 MLS/HR Sodium Chloride 1,000 ml @ 75 mls/hr [id number] IV 03/25/24 13:30 03/25/24 22:40 75 MLS/HR objective Gen.: Patient lying in bed in no apparent distress. On BiPAP Head: Normocephalic, atraumatic. Eyes: EOMI/PERRLA. Ears: Normal hearing. Normal anatomy. Neck/trachea: Trachea midline, supple. Nose: Normal external anatomy. Mouth: Moist mucous membranes. Chest: Decreased air entry bilaterally. No wheezing or rhonchi. Cardiovascular: Positive S1, positive S2. Regular rate and rhythm. Abdomen: Positive bowel sounds in all 4 quadrants. Soft, non-tender, non- distended. : Deferred. Rectal: Deferred. Skin: Warm, dry. Intact. Extremities: 2+ radial pulses bilaterally. No lower extremity edema. Neuro: Awake, alert, oriented x3. No gross motor or sensory deficits. Cranial nerves II through XII intact. Gait not assessed. laboratory and microbiology Laboratory Tests 03/25/24 04:49 Test 03/25/24 04:49 Range/Units Serum Glucose 104 74-106 mg/dL Assessment/Plan Impression: Acute chest pain Acute respiratory distress Pulmonary emboli Acute renal injury Non-ST elevation myocardial infarction Acute exacerbation of congestive heart failure Events: Remains on BiPAP with IPAP 14, EPAP 7 RR 12, FiO2 tapered to 75%. Improving O2 requirements ABG reviewed, compensated. CXR notable for cardiomegaly with bibasilar opacities. Continue heparin drip for anticoagulation per pharmacy protocol. Awaiting Echo to evaluate for RV strain. Monitor respiratory status closely - high risk for intubation. Plan for thrombectomy. Bronchodilators PRN Head of bed elevation Aspiration precautions Labs and imaging reviewed. Rest of plan as noted below. Plan: On BiPAP with IPAP 14, EPAP 7 RR 12, FiO2 tapered to 75%. Improving O2 requirements Continue bronchodilators. On heparin drip. Pain control Avoid oversedation Cardiology recommendations appreciated. Maintain euvolemia Monitor renal function. Monitor electrolytes. Supplement as necessary. Monitor ins and outs. DVT prophylaxis. Prognosis: Poor given patient's multiple co-morbidities. Condition: Critical Rest of plan per hospitalist and other consultants. A total of 35 minutes of critical care time was spent reviewing the patient record, examining the patient, making a diagnostic and therapeutic plan, discussing this plan with the medical personnel, following up on diagnostic studies and following the patient for clinical stability excluding any and all procedures. At least 50% of this time was spent in direct, [id number] contact. Thank you Dr. Alexy Watson MD, for allowing me to participate in this patient's care. Further recommendations will depend on the patient's clinical course. Please do not hesitate to contact me if you have any questions or concerns. This medical document was created using an electronic medical record system with [employer] dictation system. Although these documentations are being carefully reviewed, there may still be some phonetic and typographical changes. The errors are purely typographical, due to imperfection on the software program, and do not reflect any compromise in the patient's medical care. Plan discussed with: Patient, Other (RODO Elizondo) Critical Care Time(min): 35 NAVEEN QUINTANILLA MD Mar 25, 2024 23:09
[2024-03-26] VITALS (104 sets, daily range): BP systolic 87–144; BP diastolic 35–96; PULSE 65–90; RESP 11–30; TEMP 98.2–99.2; O2SAT 69–100
[2024-03-26 02:28] LABS: INR 1.13 (0.9-1.15); Prothrombin Time 11.9 sec (9.3-11.8)
[2024-03-26 02:42] LABS: Partial Thromboplastin Time 71.2 SEC (24.5-34.5)
--- NOTE | 2024-03-26 08:51 | DVHPN2 ---
Consult Progress Note Date Seen: Mar 26, 2024 Subjective Patient reports: Feels better Other Systems: States feeling better Objective vital signs Vital Sign Date Time Temp Pulse Resp B/P (MAP) Pulse Ox O2 Delivery O2 Flow Rate FiO2 03/26/24 06:45 72 21 94 03/26/24 06:35 Mask 10.0 03/26/24 06:33 99 03/26/24 04:00 98.2 98.2 Total Intake and Output 03/25/24 03/25/24 03/26/24 15:00 23:00 07:00 Intake Total 65 ml 90 ml 1115 ml Output Total 1000 ml Balance 65 ml 90 ml 115 ml medications Current Medications Medications Dose Ordered Sig/Shawn Route Start Time Stop Time Status Last Admin Dose Admin Albuterol 2.5 mg Q4HPRN PRN NEB 03/22/24 02:30 03/23/24 13:59 2.5 MG Ipratropium [place] 0.5 mg Q4HPRN PRN NEB 03/22/24 02:30 03/23/24 13:59 0.5 MG Atorvastatin Calcium 40 mg HS PO 03/22/24 22:00 03/25/24 22:32 40 MG Clopidogrel Bisulfate 75 mg DAILY PO 03/22/24 10:00 03/25/24 10:16 75 MG Sodium Chloride 10 ml Q8HR IV 03/22/24 06:00 03/26/24 05:24 10 ML Acetaminophen/ Hydrocodone Bitart 1 tab Q4HP PRN PO 03/22/24 02:30 Hold 03/23/24 10:40 1 TAB Docusate Sodium 100 mg BIDPRN PRN PO 03/22/24 02:30 Acetaminophen 650 mg Q6HP PRN PO 03/22/24 02:30 Nitroglycerin 0.4 mg Q5MINP PRN SL 03/22/24 03:00 Morphine Sulfate 2 mg Q30M PRN IV 03/22/24 03:00 03/22/24 14:17 2 MG Calcium Carbonate 500 mg TIDWM PO 03/22/24 08:00 03/25/24 12:18 500 MG Morphine Sulfate 4 mg Q4HPRN PRN IV 03/22/24 14:30 03/26/24 06:14 4 MG Ondansetron HCl 4 mg Q4HPRN PRN IV 03/22/24 14:30 03/25/24 02:37 4 MG Heparin Sodium/ Dextrose 250 ml @ 13 mls/hr [id number] IV 03/22/24 22:45 03/26/24 05:18 13 MLS/HR Piperacillin Sod/ Tazobactam Sod 100 ml @ 25 mls/hr Q8HR IV 03/25/24 14:00 03/26/24 05:23 25 MLS/HR Sodium Chloride 1,000 ml @ 75 mls/hr [id number] IV 03/25/24 13:30 03/25/24 22:40 75 MLS/HR Examination: LUNGS:Abnormal (Oxymizer at 10 L/min), CVS:Normal (NSR, off vasopressors), NEURO:Normal laboratory and microbiology Laboratory Tests 03/25/24 04:49 Test 03/25/24 04:49 Range/Units Serum Glucose 104 74-106 mg/dL Problem List/Assessment/Plan Problem List/Assessment/Plan (Dr. Robles) * Acute bilateral PE with right heart strain - CT showing findings consistent with right heart strain. Echo reviewed and shows normal EF 55% with diastolic dysfunction. Severely reduced RV systolic function. RVSP of 55 mmHg. Status post successful pulmonary thrombectomy, see report. Now on O2 via Oxymizer at 10 L/min. Transition from heparin drip to therapeutic Lovenox. Transition to NOAC therapy when appropriate. * Left lower extremity DVT - Status post IVC filter placement, see report. Continue anticoagulation with Lovenox SC. * NSTEMI - Type 2 TX in setting of acute PE. EKG with nonspecific ST and T-wave abnormality. * MARI on CKD - Avoid nephrotoxic agents. Monitor response with Lasix. Continue Nephrology recommendations. * HX CVA - Continue statin and Plavix. * HTN - Discontinue Coreg given borderline BPs. * Possible pancreatic malignancy - Work-up per primary care team Thank you for allowing us to participate in this patient's care. Please call if you have any questions or concerns. Critical care, time spent: 30 minutes. This medical document was created using an electronic medical record system with voice recognition software and computerized dictation system. Although this document has been carefully reviewed, there might still be some phonetic and typographical errors. Occasional wrong-word or ``sound-alike substitutions may have occurred due to the inherent limitations of voice recognition software. These areas are purely typographical due to imperfections of the software programs and do not reflect any compromise in the patient's medical care. Please read the chart carefully and recognize, using context, where these substitutions have occurred. Plan discussed with: Patient, Other Date of Service: Mar 26, 2024 Billing Provider: GISELE ROBLES MD Cardiology Common Codes: 89070-LHOJICES CARE 30-74 MIN DENNY GUTIERREZ [facility] Mar 26, 2024 08:51
[2024-03-26 09:14] LABS: Basophils # (auto) 0 10 ^3/uL (0-0.2); Basophils % (auto) 0.6 % (0.0-2.0); Eosinophils # (auto) 0.2 10 ^3/uL (0-0.8); Eosinophils % (auto) 2.1 % (0.0-7.0); Hematocrit 28.5 % (36.0-46.0); Hemoglobin 9.3 g/dL (12.2-16.2); Lymphocytes # (auto) 0.9 10 ^3/uL (0.4-5.4); Mean Corpuscular Hemoglobin 27.3 pg (28.0-32.0); Mean Corpuscular Hgb Conc. 32.7 g/dL (32.0-36.0); Mean Corpuscular Volume 83.6 fL (80.0-100.0); Monocytes # (auto) 0.6 10 ^3/uL (0-1.3); Neutrophils # (auto) 5.8 10 ^3/uL (1.6-8.6); Neutrophils % (auto) 77.3 % (37.0-80.0); Nucleated Red Blood Cells % 0.1 %; Platelet Count (auto) 229 10^3/uL (140-450); Red Cell Distribution Width 17.3 % (11.8-14.3); White Blood Cell 7.6 10^3/uL (4.4-10.8)
[2024-03-26 09:25] LABS: Chloride 103 mmol/L (98-107); Sodium 137 mmol/L (136-145)
[2024-03-26 09:26] LABS: Anion Gap 5 (5-15); Carbon Dioxide 29 mmol/L (20-31)
[2024-03-26 09:27] LABS: Calcium 9.2 mg/dL (8.7-10.4)
--- NOTE | 2024-03-26 09:30 | DVHPN2 ---
Subjective Patient reports that her shortness of breath has improved. Reviewed: Care Plan, H&P, Labs, Medications, Previous Orders, Radiology Changes from previous H/P or p: Changes General: Per HPI Eyes: No Pain, No Vision change, No Conjunctivae inflammation, No Eyelid inflammation, No Other, No Redness ENT: No Ear pain, No Ear discharge, No Nose pain, No Nose discharge, No Nose congestion, No Mouth pain, No Mouth swelling, No Throat pain, No Throat swelling, No Other Cardiovascular: Chest Pain; No Palpitations, No Orthopnea, No Paroxysmal Noc. Dyspnea, No Edema, No Lt Headedness, No Other Respiratory: No Cough, No Dry; Shortness of breath; No SOB with excertion, No Wheezing, No Hemoptysis, No Pleuritic Pain, No Sputum; Other (SOB at rest) Gastrointestinal: No Nausea, No Vomiting; Abdominal Pain; No Diarrhea, No Constipation, No Melena, No Hematochezia, No Other Genitourinary: No Dysuria, No Frequency, No Incontinence, No Hematuria, No Retention, No Other Musculoskeletal: No other, No neck pain, No shoulder pain, No arm pain, No back pain, No hand pain, No leg pain, No foot pain Skin: No Rash, No Lesions, No Jaundice, No Bruising, No Other Objective Vitals Vital Signs Date Time Temp Pulse Resp B/P (MAP) Pulse Ox O2 Delivery O2 Flow Rate FiO2 03/26/24 06:45 72 21 94 03/26/24 06:35 Mask 10.0 03/26/24 06:33 99 03/26/24 04:00 98.2 98.2 Intake/Output Intake and Output 03/26/24 07:00 Intake Total 1270 ml Output Total 1000 ml Balance 270 ml Intake Oral 600 ml IV Total 670 ml Output Urine Total 1000 ml General Appearance: Alert, Oriented X3, Cooperative, moderate distress HEENT: Atraumatic, PERRLA Lungs: Clear to auscultation, Normal air movement, Other (Oxymizer at 10 liters/minute) Cardiovascular: Normal S1, Normal S2, Other (ST depression) Abdomen: Normal bowel sounds, No tenderness Genitourinary: No Apparent Abnormalities Musculoskeletal: Normal sensory function, Normal motor function Extremities: Normal pulses Neuro: Normal gait, Normal speech Skin: Dry, Intact, Other (Surgical puncture site benign) Psych/Mental Status: Mental status NL, Mood NL Medications Current Medications Medications Dose Ordered Sig/Shawn Route Start Time Stop Time Status Last Admin Dose Admin Albuterol 2.5 mg Q4HPRN PRN NEB 03/22/24 02:30 03/23/24 13:59 2.5 MG Ipratropium [place] 0.5 mg Q4HPRN PRN NEB 03/22/24 02:30 03/23/24 13:59 0.5 MG Atorvastatin Calcium 40 mg HS PO 03/22/24 22:00 03/25/24 22:32 40 MG Clopidogrel Bisulfate 75 mg DAILY PO 03/22/24 10:00 03/25/24 10:16 75 MG Sodium Chloride 10 ml Q8HR IV 03/22/24 06:00 03/26/24 05:24 10 ML Acetaminophen/ Hydrocodone Bitart 1 tab Q4HP PRN PO 03/22/24 02:30 Hold 03/23/24 10:40 1 TAB Docusate Sodium 100 mg BIDPRN PRN PO 03/22/24 02:30 Acetaminophen 650 mg Q6HP PRN PO 03/22/24 02:30 Nitroglycerin 0.4 mg Q5MINP PRN SL 03/22/24 03:00 Morphine Sulfate 2 mg Q30M PRN IV 03/22/24 03:00 03/22/24 14:17 2 MG Calcium Carbonate 500 mg TIDWM PO 03/22/24 08:00 03/25/24 12:18 500 MG Morphine Sulfate 4 mg Q4HPRN PRN IV 03/22/24 14:30 03/26/24 06:14 4 MG Ondansetron HCl 4 mg Q4HPRN PRN IV 03/22/24 14:30 03/25/24 02:37 4 MG Heparin Sodium/ Dextrose 250 ml @ 13 mls/hr [id number] IV 03/22/24 22:45 03/26/24 11:00 03/26/24 05:18 13 MLS/HR Piperacillin Sod/ Tazobactam Sod 100 ml @ 25 mls/hr Q8HR IV 03/25/24 14:00 03/26/24 05:23 25 MLS/HR Sodium Chloride 1,000 ml @ 75 mls/hr [id number] IV 03/25/24 13:30 03/25/24 22:40 75 MLS/HR Enoxaparin Sodium 90 mg Q12HR SC 03/26/24 10:00 UNV Laboratory Results Laboratory Tests 03/26/24 09:02 Chemistry Test 03/26/24 09:02 Calcium Level Pending Coagulation Test 03/25/24 19:51 03/26/24 01:58 Prothrombin Time 11.9 sec (9.3-11.8) H 11.9 sec (9.3-11.8) H Prothrombin Time INR 1.13 (0.9-1.15) 1.13 (0.9-1.15) Activated Partial Thromboplast Time 52.0 SEC (24.5-34.5) H 71.2 SEC (24.5-34.5) *H Urinalysis Test 03/21/24 23:40 Urine Color Yellow (Yellow) Urine Clarity Clear (Clear) Urine pH 5.5 (5.0-9.0) Urine Specific [place] 1.029 (1.001-1.035) Urine Protein Trace (Negative) H Urine Ketones 1+ (Negative) H Urine Blood Negative /uL (Negative) Urine Nitrite Negative (Negative) Urine Bilirubin Negative (Negative) Urine Urobilinogen Normal mg/dL (Negative) Urine Leukocyte Esterase Negative /uL (Negative) Urine RBC 1 /hpf (0 - 4) Urine WBC <1 /hpf (0 - 5) Urine Squamous Epithelial Cells Few /hpf (<5) Urine Calcium Oxalate Crystals Few (None Seen) Urine Bacteria None seen /hpf (None Seen) Urine Hyaline Casts Few /lpf (0 - 2) Urine Mucus Few (None Seen) Urine Glucose Normal mg/dL (Normal) Labs and/or images reviewed: Labs reviewed by me, Image(s) reviewed by me Assessment/Plan Assessment/Plan Impression: -acute hypoxic respiratory failure secondary to pulmonary embolism -pulmonary embolism with right ventricular strain -NSTEMI type 2 secondary to pulmonary embolism and right ventricular strain -acute kidney injury -pancreatic head mass -probable DVT to left lower extremity -diabetes mellitus -primary hypertension -dyslipidemia Plan: -events: Patient underwent pulmonary thrombectomy yesterday afternoon. Patient has been weaned off of BiPAP, now on Oxymizer at 10 liters/minute. Patient also more alert and able to provide a more thorough history given her respiratory status has improved. Apparently, she was diagnosed with a mass in her right upper quadrant via MRI with [facility] approximately one month ago. The patient continues to have upper quadrant pain. Because of her O2 requirements and instability, no further testing was able to be performed up to this point other than an abdominal ultrasound which was unremarkable. CA 19 nine is normal. Given the patient was now stable with improved respiratory status, patient can be transferred back to [facility] for further workup of previously diagnosed right upper quadrant mass. -continue heparin drip -continue aspirin and Plavix at this time per Cardiology. -continue O2 supplementation to keep saturation greater than 92%. Continues to be on BiPAP -regular insulin sliding scale -DVT study of lower extremities -regular insulin sliding scale -statins -abdominal ultrasound to assess pancreatic mass, liver, right lower quadrant pain -social service consultation regarding transfer. Patient is stable to transfer to [facility]. Patient should be transferred to ICU or step-down ICU. Critical care time spent with patient discussing and formulating plan of care: 40 minutes. This does not include time spent performing procedures. This medical document was created using an electronic medical record system with [employer] dictation system. Although this document has been carefully reviewed, there may still be some phonetic and typographical errors. These areas are purely typographical due to imperfections of the software programs, and do not reflect any compromise in the patient's medical care. Plan discussed with: Patient, Other (RN) My Orders Orders - SOPHY SAMSON NP Procedure Category Date Status Time * Lug Breaker And Wire Puller CONS 03/25/24 Transmitted Consult Mrsa Screen DEWAYNE 03/25/24 In Process 21:18 Basic Metabolic Panel LAB 03/26/24 In Process 07:20 * Lug Breaker And Wire Puller CONS 03/26/24 Transmitted Consult Date of Service: Mar 26, 2024 Billing Provider: SOPHY SAMSON NP Common Visit Codes: [id number] CARE 30-74 MIN SOPHY SAMSON NP Mar 26, 2024 09:30
[2024-03-26 09:31] LABS: BUN/Creatinine Ratio 19.3 (10.0-20.0)
[2024-03-26 09:33] LABS: Blood Urea Nitrogen 27 mg/dL (9-23); Glucose 127 mg/dL (74-106)
[2024-03-26] MEDS: ENOXAPARIN SOD 100 MG/1 ML SYRINGE SC SCH (10:34)
--- NOTE | 2024-03-26 12:17 | DVHPN2 ---
Progress Note Date Seen: Mar 26, 2024 Resident Creating Document: ÁNGELA ALCANTARA RESIDENT Medical Necessity Reason Pt with a Central, PICC or Fol: Yes The following are medically ne: Franco Catheter Reason for franco catheter: Strict I&O Subjective Review of Systems History of Present Illness Patient is 73-year-old woman with past medical history of hypertension, diabetes mellitus type 2, hyperlipidemia, CVA with left-sided residual weakness who presented to emergency department with chief complaint of shortness of breath. Given progressively worsened shortness of breath, nonradiating, substernal, during ED workup CT scan showed pancreatic mass with possible mass, CT angio showed bilateral pulmonary emboli consistent with right heart strain. Cardiology consultation was done and plan for pulmonary thrombectomy tomorrow morning. Nephrology consultation has been done for worsening acute kidney injury. Creatinine trending up from 1.51 two 2.06. Elevated troponin at 655, BNP 463. Echocardiogram showed left ventricular ejection fraction 55%, RVSP 55 mm and mildly dilated right and left atria. No any other new complaints. Past Medical History Hypertension, hyperlipidemia, diabetes mellitus type 2, CVA with left-sided weakness. Patient seen and examined at bedside. Underwent mechanical thrombectomy yesterday. Currently on oxygen via mask. No other new complaints. Patient chest pain relieved after procedure. Objective vital signs Vital Sign Date Time Temp Pulse Resp B/P (MAP) Pulse Ox O2 Delivery O2 Flow Rate FiO2 03/26/24 08:25 21 93 Simple Mask* 10 99 03/26/24 08:25 73 03/26/24 06:45 03/26/24 04:00 98.2 98.2 Total Intake and Output 03/25/24 03/25/24 03/26/24 15:00 23:00 07:00 Intake Total 65 ml 90 ml 1115 ml Output Total 1000 ml Balance 65 ml 90 ml 115 ml medications Current Medications Medications Dose Ordered Sig/Shawn Route Start Time Stop Time Status Last Admin Dose Admin Albuterol 2.5 mg Q4HPRN PRN NEB 03/22/24 02:30 03/23/24 13:59 2.5 MG Ipratropium [place] 0.5 mg Q4HPRN PRN NEB 03/22/24 02:30 03/23/24 13:59 0.5 MG Atorvastatin Calcium 40 mg HS PO 03/22/24 22:00 03/25/24 22:32 40 MG Clopidogrel Bisulfate 75 mg DAILY PO 03/22/24 10:00 03/26/24 10:33 75 MG Sodium Chloride 10 ml Q8HR IV 03/22/24 06:00 03/26/24 05:24 10 ML Acetaminophen/ Hydrocodone Bitart 1 tab Q4HP PRN PO 03/22/24 02:30 Hold 03/23/24 10:40 1 TAB Docusate Sodium 100 mg BIDPRN PRN PO 03/22/24 02:30 Acetaminophen 650 mg Q6HP PRN PO 03/22/24 02:30 Nitroglycerin 0.4 mg Q5MINP PRN SL 03/22/24 03:00 Morphine Sulfate 2 mg Q30M PRN IV 03/22/24 03:00 03/22/24 14:17 2 MG Calcium Carbonate 500 mg TIDWM PO 03/22/24 08:00 03/26/24 09:34 500 MG Morphine Sulfate 4 mg Q4HPRN PRN IV 03/22/24 14:30 03/26/24 06:14 4 MG Ondansetron HCl 4 mg Q4HPRN PRN IV 03/22/24 14:30 03/25/24 02:37 4 MG Piperacillin Sod/ Tazobactam Sod 100 ml @ 25 mls/hr Q8HR IV 03/25/24 14:00 03/26/24 05:23 25 MLS/HR Sodium Chloride 1,000 ml @ 75 mls/hr [id number] IV 03/25/24 13:30 03/25/24 22:40 75 MLS/HR Enoxaparin Sodium 90 mg Q12HR SC 03/26/24 10:00 03/26/24 10:34 90 MG Examination General Appearance: Cooperative. In mild acute distress. Head Exam: Normal inspection Neck Exam: Normal inspection. Non-tender. Normal alignment Pulmonary/Respiratory: Chest non-tender. Clear bilateral breath sounds, on BiPAP. Cardiovascular/Chest: Regular rate and rhythm. No murmurs. No JVD. Peripheral Pulses: 2+ Radial (R). 2+ Radial (L). 2+ Pedal (R). 2+ Pedal (L) Abdominal Exam: Normal bowel sounds. Soft. Nontender. No hepatospenomegaly. No masses Ankle Exam: Negative ankle edema Lower extremities: Negative lower extremity edema Neuro/Mental Status: A&O x4. Coherent laboratory and microbiology Laboratory Tests 03/26/24 09:02 Test 03/26/24 09:02 Range/Units Serum Glucose 127 H 74-106 mg/dL Problem List/Assessment/Plan Problem List/Assessment/Plan MARI likely hemodynamically mediated in setting of massive PE and CKD stage III VS contrast nephropathy Acute bilateral PE with right heart strain Acute left lower extremity DVT NSTEMI type 2 likely due to PE Acute respiratory failure Severe right ventricular dysfunction Elevated pulmonary hypertension likely due to PE History of hypertension Hyperlipidemia Diabetes mellitus type 2 Possible pancreatic mass Left adrenal nodules Plan/recommendation - IV fluid normal saline 75 mL/hour. Kidney function improving. Underwent mechanical thrombectomy yesterday. -recommended maintaining map greater than 65 given fluctuating blood pressure, minimal recorded blood pressure systolic at 90, map at 68. Can add vasopressor if needed. -echocardiogram showed ejection fraction 55%, severely reduced right ventricular function, RVSP 55 mmHg. -elevated troponin likely due to PE. Cardiology continued following up. -rest of the management per primary care team. -we will continue to closely follow him up. Addendum Patient seen and examined, plan discussed with resident. Agree with above, we will follow closely Plan discussed with: Patient, Other (RN) My Orders My Orders Orders - ÁNGELA ALCANTARA RESIDENT Procedure Category Date Status Time Sodium Chloride 0.9% PHA 03/25/24 In Process 13:30 Communication Order ORDERS 03/25/24 Transmitted 13:17 Urine Sodium LAB 03/25/24 Logged 16:14 Urine LAB 03/25/24 Logged Protein/Creatinine Urine Creatinine LAB 03/25/24 Logged 16:14 Urine Protein LAB 03/25/24 Logged 16:14 Dietary Evaluation Review Comments: Monitor PO intake to meet 75% of her needs and monitor Glu to be WNL, consider CCHO-60 if glu becomes elevated, consider Renal specific protein restriction-60 or less if MARI is unresolved. Expected Outcomes/Goals: controlled DM, avoid uremic symdrome, gradual weight loss. ÁNGELA ALCANTARA Mar 26, 2024 12:17 LUCÍA NEAL MD Mar 26, 2024 18:56
[2024-03-26] MEDS: MORPHINE SULFATE 4 MG/ML SYR/VIAL IV PRN (13:02)
[2024-03-26] MEDS: FUROSEMIDE 40 MG/4 ML VIAL IV ONE (20:25)
--- NOTE | 2024-03-26 22:45 | DVHPN2 ---
Progress Note - Dictate Date Seen: Mar 26, 2024 Medical Necessity Reason Pt with a Central, PICC or Fol: Yes The following are medically ne: Franco Catheter Reason for franco catheter: Strict I&O Subjective Patient seen and examined at bedside. On supplemental oxygen Overnight events reviewed. vital signs Vital Sign Date Time Temp Pulse Resp B/P (MAP) Pulse Ox O2 Delivery O2 Flow Rate FiO2 03/26/24 22:07 95 Oxymizer 10.0 03/26/24 22:07 N/A 03/26/24 20:25 121/84 03/26/24 19:45 75 16 03/26/24 18:30 99.1 99.1 Total Intake and Output 03/25/24 03/25/24 03/26/24 15:00 23:00 07:00 Intake Total 65 ml 90 ml 1153 ml Output Total 1000 ml Balance 65 ml 90 ml 153 ml medications Current Medications Medications Dose Ordered Sig/Shawn Route Start Time Stop Time Status Last Admin Dose Admin Albuterol 2.5 mg Q4HPRN PRN NEB 03/22/24 02:30 03/23/24 13:59 2.5 MG Ipratropium [place] 0.5 mg Q4HPRN PRN NEB 03/22/24 02:30 03/23/24 13:59 0.5 MG Atorvastatin Calcium 40 mg HS PO 03/22/24 22:00 03/26/24 20:24 40 MG Clopidogrel Bisulfate 75 mg DAILY PO 03/22/24 10:00 03/26/24 10:33 75 MG Sodium Chloride 10 ml Q8HR IV 03/22/24 06:00 03/26/24 22:01 10 ML Acetaminophen/ Hydrocodone Bitart 1 tab Q4HP PRN PO 03/22/24 02:30 Hold 03/23/24 10:40 1 TAB Docusate Sodium 100 mg BIDPRN PRN PO 03/22/24 02:30 Acetaminophen 650 mg Q6HP PRN PO 03/22/24 02:30 Nitroglycerin 0.4 mg Q5MINP PRN SL 03/22/24 03:00 Morphine Sulfate 2 mg Q30M PRN IV 03/22/24 03:00 03/22/24 14:17 2 MG Calcium Carbonate 500 mg TIDWM PO 03/22/24 08:00 03/26/24 20:24 500 MG Ondansetron HCl 4 mg Q4HPRN PRN IV 03/22/24 14:30 03/25/24 02:37 4 MG Piperacillin Sod/ Tazobactam Sod 100 ml @ 25 mls/hr Q8HR IV 03/25/24 14:00 03/26/24 20:25 25 MLS/HR Enoxaparin Sodium 90 mg Q12HR SC 03/26/24 10:00 03/26/24 22:02 90 MG Morphine Sulfate 4 mg Q4HPRN PRN IV 03/26/24 12:45 03/26/24 13:02 4 MG Furosemide 40 mg BIDD IV 03/27/24 06:00 objective Gen.: Patient lying in bed in no apparent distress. On supplemental oxygen Head: Normocephalic, atraumatic. Eyes: EOMI/PERRLA. Ears: Normal hearing. Normal anatomy. Neck/trachea: Trachea midline, supple. Nose: Normal external anatomy. Mouth: Moist mucous membranes. Chest: Decreased air entry bilaterally. No wheezing or rhonchi. Cardiovascular: Positive S1, positive S2. Regular rate and rhythm. Abdomen: Positive bowel sounds in all 4 quadrants. Soft, non-tender, non- distended. : Deferred. Rectal: Deferred. Skin: Warm, dry. Intact. Extremities: 2+ radial pulses bilaterally. No lower extremity edema. Neuro: Awake, alert, oriented x3. No gross motor or sensory deficits. Cranial nerves II through XII intact. Gait not assessed. laboratory and microbiology Laboratory Tests 03/26/24 09:02 Test 03/26/24 09:02 Range/Units Serum Glucose 127 H 74-106 mg/dL Assessment/Plan Impression: Acute chest pain Acute respiratory distress Pulmonary emboli Acute renal injury Non-ST elevation myocardial infarction Acute exacerbation of congestive heart failure Events: Transitioned to 10 LPM Oxymizer Titrate to keep sats above 90%. S/p thrombectomy S/p IVC filter. Continue abx - Zosyn Continue heparin drip for anticoagulation - transition to Lovenox. Possible pancreatic/hepatic mass. Monitor respiratory status closely - high risk for intubation. Bronchodilators PRN Head of bed elevation Aspiration precautions Labs and imaging reviewed. Rest of plan as noted below. Plan: On supplemental oxygen On 10 LPM Oxymizer Titrate to keep sats above 90%. Continue bronchodilators. On heparin drip - transition to Lovenox. Pain control Avoid oversedation Cardiology recommendations appreciated. Maintain euvolemia Monitor renal function. Monitor electrolytes. Supplement as necessary. Monitor ins and outs. DVT prophylaxis. Prognosis: Poor given patient's multiple co-morbidities. Condition: Critical Rest of plan per hospitalist and other consultants. A total of 35 minutes of critical care time was spent reviewing the patient record, examining the patient, making a diagnostic and therapeutic plan, discussing this plan with the medical personnel, following up on diagnostic studies and following the patient for clinical stability excluding any and all procedures. At least 50% of this time was spent in direct, [id number] contact. Thank you Dr. Alexy Watson MD, for allowing me to participate in this patient's care. Further recommendations will depend on the patient's clinical course. Please do not hesitate to contact me if you have any questions or concerns. This medical document was created using an electronic medical record system with [employer] dictation system. Although these documentations are being carefully reviewed, there may still be some phonetic and typographical changes. The errors are purely typographical, due to imperfection on the software program, and do not reflect any compromise in the patient's medical care. Dietary Evaluation Review Comments: Monitor PO intake to meet 75% of her needs and monitor Glu to be WNL, consider CCHO-60 if glu becomes elevated, consider Renal specific protein restriction-60 or less if MARI is unresolved. Expected Outcomes/Goals: controlled DM, avoid uremic symdrome, gradual weight loss. Plan discussed with: Other (RODO Heck) Critical Care Time(min): 35 NAVEEN QUINTANILLA MD Mar 26, 2024 22:45
[2024-03-27] VITALS (58 sets, daily range): BP systolic 87–132; BP diastolic 52–88; PULSE 65–85; RESP 12–34; TEMP 98.4–99.8; O2SAT 73–100
[2024-03-27 04:24] LABS: Basophils # (auto) 0 10 ^3/uL (0-0.2); Basophils % (auto) 0.5 % (0.0-2.0); Eosinophils # (auto) 0.2 10 ^3/uL (0-0.8); Eosinophils % (auto) 2.4 % (0.0-7.0); Hematocrit 26.7 % (36.0-46.0); Hemoglobin 8.9 g/dL (12.2-16.2); Lymphocytes # (auto) 1.2 10 ^3/uL (0.4-5.4); Lymphocytes % (auto) 14.7 % (10.0-50.0); Mean Corpuscular Hgb Conc. 33.4 g/dL (32.0-36.0); Mean Corpuscular Volume 83.7 fL (80.0-100.0); Monocytes # (auto) 0.7 10 ^3/uL (0-1.3); Neutrophils # (auto) 5.9 10 ^3/uL (1.6-8.6); Neutrophils % (auto) 73.4 % (37.0-80.0); Platelet Count (auto) 254 10^3/uL (140-450); Red Blood Cells 3.19 10^6/uL (4.0-5.20); Red Cell Distribution Width 16.7 % (11.8-14.3); White Blood Cell 8.1 10^3/uL (4.4-10.8)
[2024-03-27 04:26] LABS: Chloride 102 mmol/L (98-107); Potassium 3.8 mmol/L (3.5-5.1); Sodium 139 mmol/L (136-145)
[2024-03-27 04:27] LABS: Anion Gap 9 (5-15); Calcium 9.2 mg/dL (8.7-10.4); Carbon Dioxide 28 mmol/L (20-31)
[2024-03-27 04:32] LABS: Blood Urea Nitrogen 23 mg/dL (9-23)
[2024-03-27 04:42] LABS: Glucose 110 mg/dL (74-106)
[2024-03-27] MEDS: FUROSEMIDE 40 MG/4 ML VIAL IV SCH (05:44)
--- NOTE | 2024-03-27 06:55 | DVHDS2 ---
Discharge Summary Date of Admission Mar 22, 2024 at 02:54 Date of Discharge: Mar 27, 2024 Admitting Diagnosis NSTEMI type 2 Labs/Diagnostic Data: Laboratory Results Test 03/27/24 03:23 03/26/24 01:58 03/25/24 21:10 03/25/24 04:49 White Blood Count 8.1 10^3/uL (4.4-10.8) Red Blood Count 3.19 10^6/uL (4.0-5.20) Hemoglobin 8.9 g/dL (12.2-16.2) Hematocrit 26.7 % (36.0-46.0) Mean Corpuscular Volume 83.7 fL (80.0-100.0) Mean Corpuscular Hemoglobin 28.0 pg (28.0-32.0) Mean Corpuscular Hemoglobin Concent 33.4 g/dL (32.0-36.0) Red Cell Distribution Width 16.7 % (11.8-14.3) Platelet Count 254 10^3/uL (140-450) Mean Platelet Volume 8.3 fL (6.9-10.8) Neutrophils (%) (Auto) 73.4 % (37.0-80.0) Lymphocytes (%) (Auto) 14.7 % (10.0-50.0) Monocytes (%) (Auto) 9.0 % (0.0-12.0) Eosinophils (%) (Auto) 2.4 % (0.0-7.0) Basophils (%) (Auto) 0.5 % (0.0-2.0) Neutrophils # (Auto) 5.9 10 ^3/uL (1.6-8.6) Lymphocytes # (Auto) 1.2 10 ^3/uL (0.4-5.4) Monocytes # (Auto) 0.7 10 ^3/uL (0-1.3) Eosinophils # (Auto) 0.2 10 ^3/uL (0-0.8) Basophils # (Auto) 0 10 ^3/uL (0-0.2) Nucleated Red Blood Cells 0.0 % Sodium Level 139 mmol/L (136-145) Potassium Level 3.8 mmol/L (3.5-5.1) Chloride Level 102 mmol/L (98-107) Carbon Dioxide Level 28 mmol/L (20-31) Anion Gap 9 (5-15) Blood Urea Nitrogen 23 mg/dL (9-23) Creatinine 1.35 mg/dL (0.550-1.02) Glomerular Filtration Rate Calc 42 mL/min (>90) BUN/Creatinine Ratio 17.0 (10.0-20.0) Serum Glucose 110 mg/dL (74-106) Calcium Level 9.2 mg/dL (8.7-10.4) Prothrombin Time 11.9 sec (9.3-11.8) Prothrombin Time INR 1.13 (0.9-1.15) Activated Partial Thromboplast Time 71.2 SEC (24.5-34.5) POC Glucose 105 mg/dl (70-106) Total Bilirubin 0.4 mg/dL (0.2-1.0) Aspartate Amino Transferase (AST) 11 U/L (13-40) Alanine Aminotransferase (ALT) 12 U/L (7-40) Alkaline Phosphatase 80 U/L (46-116) Total Protein 6.7 g/dL (5.7-8.2) Albumin 3.9 g/dL (3.2-4.8) Test 03/24/24 11:55 03/24/24 07:03 03/23/24 09:08 03/22/24 05:36 Blood Gas Specimen Type Arterial Blood Gas Sample Site Right radial Blood Gas Patient Temperature 37.0 Arterial Blood Date Drawn [id number] Arterial Blood pH 7.412 (7.350-7.450) Arterial Blood Partial Pressure CO2 40.3 mmHg (32.0-45.0) Arterial Blood Partial Pressure O2 113.6 mmHg (83.0-108.0) Arterial Blood HCO3 25.1 mmol/L (21.0-28.0) Arterial Blood Oxygen Saturation 97.6 % (94.0-98.0) Arterial Blood Base Excess 0.5 mmol/L (-2.0-3.0) Arterial Blood Oxyhemoglobin 96.2 % (94.0-98.0) Arterial Blood Carboxyhemoglobin 0.3 % (0.5-1.5) Arterial Blood Methemoglobin 1.1 % (0.0-1.5) Temo Test Yes Blood Gas Total Hemoglobin 11.40 g/dL (12.0-16.0) Blood Gas Set Respiration Rate 12.0 Blood Gas Modality Mask - bipap Blood Gas Spontaneous Rate 26 FiO2 % 90.0 Blood Gas EPAP 7 Blood Gas IPAP 14 CA 19-9 Antigen 14 U/mL (0-35) Blood Gas Liter Flow 70.00 Troponin I High Sensitivity 655 ng/L (</=34) Test 03/22/24 01:25 03/22/24 00:26 03/21/24 23:40 B-Type Natriuretic Peptide 463.70 pg/mL (0-100) Venous Blood pH 7.368 (7.320-7.430) Venous Blood pCO2 at Patient Temp 39.1 mmHg (38.0-54.0) Venous Blood pO2 at Patient Temp < 36.5 mmHg (23.0-48.0) Venous Blood HCO3 22.0 mmol/L (22.0-29.0) Venous Blood Base Excess -3.0 mmol/L (-2.0-3.0) Urine Color Yellow (Yellow) Urine Clarity Clear (Clear) Urine pH 5.5 (5.0-9.0) Urine Specific [place] 1.029 (1.001-1.035) Urine Protein Trace (Negative) Urine Ketones 1+ (Negative) Urine Blood Negative /uL (Negative) Urine Nitrite Negative (Negative) Urine Bilirubin Negative (Negative) Urine Urobilinogen Normal mg/dL (Negative) Urine Leukocyte Esterase Negative /uL (Negative) Urine RBC 1 /hpf (0 - 4) Urine WBC <1 /hpf (0 - 5) Urine Squamous Epithelial Cells Few /hpf (<5) Urine Calcium Oxalate Crystals Few (None Seen) Urine Bacteria None seen /hpf (None Seen) Urine Hyaline Casts Few /lpf (0 - 2) Urine Mucus Few (None Seen) Urine Glucose Normal mg/dL (Normal) Other Laboratory Tests 03/27/24 03:23 Brief Hx & Hospital Course: History of Present Illness The patient is a 73-year-old female with past medical history of diabetes mellitus, hyperlipidemia, hypertension, and CVA with left-sided residual presented to [facility] ED with complaint of chest pain. Patient reports symptoms progressively get worse with nonradiating substernal chest, abdominal pain, associated shortness of breath, getting worse that prompted this visit. Patient was seen and evaluated in the ED, laboratory data shows WBC 9.3, platelets 141, sodium 143, potassium 3.6, BUN 15, creatinine 1.55, glucose 127, calcium 11.3, BNP 463.70, troponin 568. Chest x-ray revealing mild cardiomegaly and mild pulmonary vascular congestion. Patient was given IV Lasix, breathing treatment, please see medication orders section in the computer. On my assessment, patient denied chest pain at this moment, no headache, no dizziness, no diaphoresis, no shortness of breath, no nausea, no vomiting, no fever, no chills. Patient was admitted for further evaluation and medical management. Course of hospitalization: Patient had CT angiogram of the chest which revealed bilateral pulmonary embolism, with more burden noted to the right pulmonary arteries. Right ventricular strain was also noted. Patient had multiple troponins that were trending up with patient's O2 requirements increased to the point where she was placed on BiPAP at 100% FiO2. Echocardiogram reveals ejection fraction 55% with RV strain. Both Cardiology and Interventional Radiology consultation was placed. Patient underwent pulmonary thrombectomy on 03/25/2024. Patient was O2 requirements improved to where she was stable on Oxymizer at 10 liters/minute. Patient also subjectively reports that her dyspnea as well as chest pain has improved. With the patient having overall improved clinical status, history was again repeated on the patient regarding her medical history. Apparently, the patient has had a diagnosis of a mass up and right upper quadrant. While the CT angiogram did reveal questionable pancreatic head mass, CA 19-9 was of normal limits. Because of the patient was a stability, further diagnostic testing was performed using abdominal ultrasound, which was noncontributory to clinical intervention. The patient did state that she had an MRI approximately one month ago which diagnosed to right upper quadrant mass, but is unable to be more specific with respect to what she was diagnosed with given the patient's improved respiratory status, patient was now stable to transfer back to [facility]. Patient will have continued anticoagulation with enoxaparin 1 mg per kg q.12 hours. Discussion was made with the patient regarding further plan of care for which he was agreeable. All questions answered. Physical examination General: Alert and Oriented x3. No acute distress. Well-nourished. Obese Eyes: EOMI. Anicteric. HENT: Moist mucous membranes. Lungs: Clear to auscultation bilaterally. No accessory muscle use. Bibasilar crackles Cardiovascular: Regular rate and rhythm. No murmur. No JVD. Abdomen: Soft, non-tender and non-distended. No palpable masses. Extremities: No edema. Non-tender. Skin: No rashes or lesions. Warm. Neurologic: No focal neurological deficits. CN II-XII grossly intact, but not individually tested. Psychiatric: Cooperative. Appropriate mood and affect. Total time spent with patient discussing and formulating plan of care: 35 minutes. This medical document was created using an electronic medical record system with [employer] dictation system. Although this document has been carefully reviewed, there may still be some phonetic and typographical errors. These areas are purely typographical due to imperfections of the software programs, and do not reflect any compromise in the patient's medical care. Consults/Reason for consult Interventional Radiology: Assess patient for pulmonary thrombectomy Cardiology: NSTEMI type 2, assess patient for pulmonary thrombectomy Operations or Procedures 03/25/2024: Thrombectomy and pulmonary embolism Condition at Discharge: Fair Final Diagnosis/Problems List Acute hypoxic respiratory failure secondary to bilateral pulmonary embolism with cor pulmonale Secondary Diagnosis: -acute hypoxic respiratory failure secondary to pulmonary embolism -pulmonary embolism with right ventricular strain -NSTEMI type 2 secondary to pulmonary embolism and right ventricular strain -acute kidney injury , probable be MN -pancreatic head mass -probable DVT to left lower extremity -diabetes mellitus -primary hypertension -dyslipidemia -right upper quadrant mass per patient Discharge Disposition: Acute Care Facility Discharge Instruct/Medications Diet: Cardiac 2g Na,low cholest Activity: No Restrictions, As Tolerated Follow Up/Referral: Per accepting provider Medications: Refer to medication reconciliation form 36 Discharge Statement: "Patient was advised to return to the ER or call 911 if any headaches, dizziness, shortness of breath, chest pain, abdominal pain, bleeding, fevers, or worsening of medical condition. Patient was counseled about treatment plan, medications, possible side effects, patientverbalized understanding. All questions were answered to the best of my ability. This discharge took greater then 30 minutes in planning, reviewing documentation, counseling the patient, and discussing with other team members." ASSESSMENT ASSESSMENT Assessment Acute hypoxic respiratory failure secondary to bilateral pulmonary embolism with cor pulmonale Date of Service: Mar 27, 2024 Billing Provider: SOPHY SAMSON NP Common Visit Codes: 46735-XAW/OBS DISCH DAY >30min SOPHY SAMSON NP Mar 27, 2024 06:55
[2024-03-27] MEDS: PANTOPRAZOLE 40 MG TAB PO SCH (08:43)
--- NOTE | 2024-03-27 09:26 | DVH ---
CHEST RADIOGRAPH Indication: pna, hypoxia Technique: Single frontal view of the chest was obtained Comparison: XY CHEST XRAY 1 VIEW on DOS: 03/24/24, XY CHEST XRAY 1 VIEW on DOS: 03/23/24, XY CHEST PORT ABLE on DOS: 03/21/24, XY CHEST XRAY 1 VIEW on DOS: 03/24/24 FINDINGS: Lines and Tubes: None Lungs: Bibasilar opacities. Pleura: No effusion. No pneumothorax. Cardiomediastinal contours: Cardiomegaly. Bones: No acute osseous abnormality. IMPRESSION: Cardiomegaly with bibasilar opacities.
[2024-03-27] MEDS: FUROSEMIDE 20 MG/2 ML VIAL IV SCH (10:14)
--- NOTE | 2024-03-27 15:46 | DVHPN2 ---
Progress Note Date Seen: Mar 27, 2024 Medical Necessity Reason Pt with a Central, PICC or Fol: Yes The following are medically ne: Franco Catheter Reason for franco catheter: Strict I&O Subjective Patient reports: No new complaints Review of Systems: HEENT:Normal, CVS:Normal, RESPIRATORY:Abnormal (In respiratory distress), GI:Normal, :Normal, MSK:Normal, NEURO:Normal Objective vital signs Vital Sign Date Time Temp Pulse Resp B/P (MAP) Pulse Ox O2 Delivery O2 Flow Rate FiO2 03/27/24 14:31 75 14 100/56 (71) 91 03/27/24 14:00 Oxymizer 12 N/A 03/27/24 13:00 99.8 99.8 Total Intake and Output 03/26/24 03/26/24 03/27/24 15:00 23:00 07:00 Intake Total 482.5 ml 1210 ml 250 ml Output Total 0 ml 500 ml 1550 ml Balance 482.5 ml 710 ml -1300 ml medications Current Medications Medications Dose Ordered Sig/Shawn Route Start Time Stop Time Status Last Admin Dose Admin Albuterol 2.5 mg Q4HPRN PRN NEB 03/22/24 02:30 03/23/24 13:59 2.5 MG Ipratropium [place] 0.5 mg Q4HPRN PRN NEB 03/22/24 02:30 03/23/24 13:59 0.5 MG Atorvastatin Calcium 40 mg HS PO 03/22/24 22:00 03/26/24 20:24 40 MG Clopidogrel Bisulfate 75 mg DAILY PO 03/22/24 10:00 03/27/24 10:15 75 MG Sodium Chloride 10 ml Q8HR IV 03/22/24 06:00 03/27/24 14:47 10 ML Acetaminophen/ Hydrocodone Bitart 1 tab Q4HP PRN PO 03/22/24 02:30 Hold 03/23/24 10:40 1 TAB Docusate Sodium 100 mg BIDPRN PRN PO 03/22/24 02:30 Acetaminophen 650 mg Q6HP PRN PO 03/22/24 02:30 Nitroglycerin 0.4 mg Q5MINP PRN SL 03/22/24 03:00 Morphine Sulfate 2 mg Q30M PRN IV 03/22/24 03:00 03/22/24 14:17 2 MG Calcium Carbonate 500 mg TIDWM PO 03/22/24 08:00 03/27/24 12:34 500 MG Ondansetron HCl 4 mg Q4HPRN PRN IV 03/22/24 14:30 03/25/24 02:37 4 MG Piperacillin Sod/ Tazobactam Sod 100 ml @ 25 mls/hr Q8HR IV 03/25/24 14:00 03/27/24 14:47 25 MLS/HR Enoxaparin Sodium 90 mg Q12HR SC 03/26/24 10:00 03/27/24 10:13 90 MG Morphine Sulfate 4 mg Q4HPRN PRN IV 03/26/24 12:45 03/27/24 09:48 4 MG Furosemide 20 mg DAILY IV 03/27/24 10:00 03/27/24 10:14 20 MG Pantoprazole Sodium 40 mg DAILY@0600 PO 03/27/24 07:00 03/27/24 08:43 40 MG Examination: GENERAL:Normal, HEENT:Normal, NECK:Normal, LUNGS:Abnormal, CVS:Normal, ABDOMEN:Normal, MSK:Normal, SKIN:Normal, NEURO:Normal, :Normal laboratory and microbiology Laboratory Tests 03/27/24 03:23 Test 03/27/24 03:23 Range/Units Serum Glucose 110 H 74-106 mg/dL Microbiology Date/Time Source Procedure Growth Status 03/25/24 20:00 Nose MRSA Screen - Final Complete Problem List/Assessment/Plan Problem List/Assessment/Plan MARI likely hemodynamically mediated + contrast nephropathy Acute bilateral PE with right heart strain Acute left lower extremity DVT NSTEMI type 2 likely due to PE Acute respiratory failure Severe right ventricular dysfunction Elevated pulmonary hypertension likely due to PE History of hypertension Hyperlipidemia Diabetes mellitus type 2 Possible pancreatic mass Left adrenal nodules Plan/recommendation Recommend diuretics IV for b.i.d. Patient on 2 L Oxymizer Status post thrombectomy Plan discussed with: Patient Dietary Evaluation Review Comments: Monitor PO intake to meet 75% of her needs and monitor Glu to be WNL, consider CCHO-60 if glu becomes elevated, consider Renal specific protein restriction-60 or less if MARI is unresolved. Expected Outcomes/Goals: controlled DM, avoid uremic symdrome, gradual weight loss. LUCÍA NEAL MD Mar 27, 2024 15:46
--- NOTE | 2024-03-27 16:23 | DVHPN2 ---
Consult Progress Note Subjective Patient reports: Feels better Other Systems: Patient remains in normal sinus rhythm on continuous security monitor Now on 7 L Oxymizer Objective vital signs Vital Sign Date Time Temp Pulse Resp B/P (MAP) Pulse Ox O2 Delivery O2 Flow Rate FiO2 03/27/24 14:31 75 14 100/56 (71) 91 03/27/24 14:00 Oxymizer 12 N/A 03/27/24 13:00 99.8 99.8 Total Intake and Output 03/26/24 03/26/24 03/27/24 14:59 22:59 06:59 Intake Total 495.5 ml 1235 ml 225 ml Output Total 0 ml 500 ml 1550 ml Balance 495.5 ml 735 ml -1325 ml medications Current Medications Medications Dose Ordered Sig/Shawn Route Start Time Stop Time Status Last Admin Dose Admin Albuterol 2.5 mg Q4HPRN PRN NEB 03/22/24 02:30 03/23/24 13:59 2.5 MG Ipratropium [place] 0.5 mg Q4HPRN PRN NEB 03/22/24 02:30 03/23/24 13:59 0.5 MG Atorvastatin Calcium 40 mg HS PO 03/22/24 22:00 03/26/24 20:24 40 MG Clopidogrel Bisulfate 75 mg DAILY PO 03/22/24 10:00 03/27/24 10:15 75 MG Sodium Chloride 10 ml Q8HR IV 03/22/24 06:00 03/27/24 14:47 10 ML Acetaminophen/ Hydrocodone Bitart 1 tab Q4HP PRN PO 03/22/24 02:30 Hold 03/23/24 10:40 1 TAB Docusate Sodium 100 mg BIDPRN PRN PO 03/22/24 02:30 Acetaminophen 650 mg Q6HP PRN PO 03/22/24 02:30 Nitroglycerin 0.4 mg Q5MINP PRN SL 03/22/24 03:00 Morphine Sulfate 2 mg Q30M PRN IV 03/22/24 03:00 03/22/24 14:17 2 MG Calcium Carbonate 500 mg TIDWM PO 03/22/24 08:00 03/27/24 12:34 500 MG Ondansetron HCl 4 mg Q4HPRN PRN IV 03/22/24 14:30 03/25/24 02:37 4 MG Piperacillin Sod/ Tazobactam Sod 100 ml @ 25 mls/hr Q8HR IV 03/25/24 14:00 03/27/24 14:47 25 MLS/HR Enoxaparin Sodium 90 mg Q12HR SC 03/26/24 10:00 03/27/24 10:13 90 MG Morphine Sulfate 4 mg Q4HPRN PRN IV 03/26/24 12:45 03/27/24 09:48 4 MG Furosemide 20 mg DAILY IV 03/27/24 10:00 03/27/24 10:14 20 MG Pantoprazole Sodium 40 mg DAILY@0600 PO 03/27/24 07:00 03/27/24 08:43 40 MG Examination: GENERAL:Normal, LUNGS:Normal, CVS:Normal, NEURO:Normal laboratory and microbiology Laboratory Tests 03/27/24 03:23 Test 03/27/24 03:23 Range/Units Serum Glucose 110 H 74-106 mg/dL Problem List/Assessment/Plan Problem List/Assessment/Plan Problem List/Assessment/Plan (Dr. Robles) * Acute bilateral PE with right heart strain - CT showing findings consistent with right heart strain. Echo reviewed and shows normal EF 55% with diastolic dysfunction. Severely reduced RV systolic function. RVSP of 55 mmHg. Status post successful pulmonary thrombectomy, see report. Now on O2 via Oxymizer at 10 L/min. Transition from heparin drip to therapeutic Lovenox. Transition to NOAC therapy when appropriate. * Left lower extremity DVT - Status post IVC filter placement, see report. Continue anticoagulation with Lovenox SC. * NSTEMI - Type 2 WI in setting of acute PE. EKG with nonspecific ST and T-wave abnormality. * MARI on CKD - Avoid nephrotoxic agents. Monitor response with Lasix. Continue Nephrology recommendations. * HX CVA - Continue statin and Plavix. * HTN - Discontinue Coreg given borderline BPs. * Possible pancreatic malignancy - Work-up per primary care team Patient seen and examined at bedside with . Flowstasis device removed from right groin. No signs of hematoma or bleeding. There is no further inpatient cardiac workup indicated at this time. Patient pending transfer to [facility]. Please reconsult if needed Thank you for allowing us to participate in this patient's care. Please call if you have any questions or concerns. Critical care, time spent: 30 minutes. This medical document was created using an electronic medical record system with voice recognition software and computerized dictation system. Although this document has been carefully reviewed, there might still be some phonetic and typographical errors. Occasional wrong-word or ``sound-alike substitutions may have occurred due to the inherent limitations of voice recognition software. These areas are purely typographical due to imperfections of the software programs and do not reflect any compromise in the patient's medical care. Please read the chart carefully and recognize, using context, where these substitutions have occurred. Plan discussed with: Patient Dietary Evaluation Review Comments: Monitor PO intake to meet 75% of her needs and monitor Glu to be WNL, consider CCHO-60 if glu becomes elevated, consider Renal specific protein restriction-60 or less if MARI is unresolved. Expected Outcomes/Goals: controlled DM, avoid uremic symdrome, gradual weight loss. Date of Service: Mar 27, 2024 Billing Provider: GISELE ROBLES MD Common Visit Codes: [id number] CARE 30-74 MIN SNEHA MONROY Mar 27, 2024 16:23
--- NOTE | 2024-03-27 23:11 | DVHPN2 ---
Progress Note - Dictate Date Seen: Mar 27, 2024 Medical Necessity Reason Pt with a Central, PICC or Fol: Yes The following are medically ne: Franco Catheter Reason for franco catheter: Strict I&O Subjective Patient seen and examined at bedside. On supplemental oxygen Overnight events reviewed. vital signs Vital Sign Date Time Temp Pulse Resp B/P (MAP) Pulse Ox O2 Delivery O2 Flow Rate FiO2 03/27/24 22:00 21 98 Oxymizer 12 N/A 03/27/24 22:00 74 03/27/24 22:00 123/87 (99) 03/27/24 20:00 98.4 98.4 Total Intake and Output 03/26/24 03/26/24 03/27/24 15:00 23:00 07:00 Intake Total 482.5 ml 1210 ml 250 ml Output Total 0 ml 500 ml 1550 ml Balance 482.5 ml 710 ml -1300 ml objective Gen.: Patient lying in bed in no apparent distress. On supplemental oxygen Head: Normocephalic, atraumatic. Eyes: EOMI/PERRLA. Ears: Normal hearing. Normal anatomy. Neck/trachea: Trachea midline, supple. Nose: Normal external anatomy. Mouth: Moist mucous membranes. Chest: Decreased air entry bilaterally. No wheezing or rhonchi. Cardiovascular: Positive S1, positive S2. Regular rate and rhythm. Abdomen: Positive bowel sounds in all 4 quadrants. Soft, non-tender, non- distended. : Deferred. Rectal: Deferred. Skin: Warm, dry. Intact. Extremities: 2+ radial pulses bilaterally. No lower extremity edema. Neuro: Awake, alert, oriented x3. No gross motor or sensory deficits. Cranial nerves II through XII intact. Gait not assessed. laboratory and microbiology Laboratory Tests 03/27/24 03:23 Test 03/27/24 03:23 Range/Units Serum Glucose 110 H 74-106 mg/dL Assessment/Plan Impression: Acute chest pain Acute respiratory distress Pulmonary emboli Acute renal injury Non-ST elevation myocardial infarction Acute exacerbation of congestive heart failure Events: Remains on supplemental O2 On 12 LPM Oxymizer Increased O2 requirements overnight. Titrate to keep sats above 90%. Note, patient desaturates w/ exertion + movement. S/p thrombectomy S/p IVC filter. Continue abx - Zosyn Continue anticoagulation - therapeutic Lovenox. Monitor respiratory status closely - high risk for intubation. Bronchodilators PRN Head of bed elevation Aspiration precautions Patient awaiting transfer to [place]. Labs and imaging reviewed. Rest of plan as noted below. Plan: On supplemental oxygen On 12 LPM Oxymizer Titrate to keep sats above 90%. Continue bronchodilators. Therapeutic Lovenox for anticoagulation. Pain control Avoid oversedation Cardiology recommendations appreciated. Maintain euvolemia Monitor renal function. Monitor electrolytes. Supplement as necessary. Monitor ins and outs. DVT prophylaxis. Prognosis: Poor given patient's multiple co-morbidities. Condition: Critical Rest of plan per hospitalist and other consultants. A total of 35 minutes of critical care time was spent reviewing the patient record, examining the patient, making a diagnostic and therapeutic plan, discussing this plan with the medical personnel, following up on diagnostic studies and following the patient for clinical stability excluding any and all procedures. At least 50% of this time was spent in direct, [id number] contact. Thank you Dr. Alexy Watson MD, for allowing me to participate in this patient's care. Further recommendations will depend on the patient's clinical course. Please do not hesitate to contact me if you have any questions or concerns. This medical document was created using an electronic medical record system with [employer] computerized dictation system. Although these documentations are being carefully reviewed, there may still be some phonetic and typographical changes. The errors are purely typographical, due to imperfection on the software program, and do not reflect any compromise in the patient's medical care. Dietary Evaluation Review Comments: Monitor PO intake to meet 75% of her needs and monitor Glu to be WNL, consider CCHO-60 if glu becomes elevated, consider Renal specific protein restriction-60 or less if MARI is unresolved. Expected Outcomes/Goals: controlled DM, avoid uremic symdrome, gradual weight loss. Plan discussed with: Other (RODO Heck) Critical Care Time(min): 35 NAVEEN QUINTANILLA MD Mar 27, 2024 23:11
== END 2024-03-27 22:30 | disposition short-term general hospital (02) | DRG 163 ==
LOC: ER 22:17 → EDBD 22:17 → TELE 03-22 02:54 → ICU WEST 03-25 19:19
PROVIDERS: ADMIT Nurse Practitioner Family; ATTEND Nurse Practitioner Acute Care
PROC: 05HD33Z Insertion of Infusion Device into Right Cephalic Vein, Percutaneous Approach (ICD-10-PCS; principal; 2024-03-22)
PROC: B54MZZA Ultrasonography of Right Upper Extremity Veins, Guidance (ICD-10-PCS; 2024-03-22)
PROC: 5A09457 Assistance with Respiratory Ventilation, 24-96 Consecutive Hours, Continuous Positive Airway Pressure (ICD-10-PCS; 2024-03-23)
PROC: 5A0935A Assistance with Respiratory Ventilation, Less than 24 Consecutive Hours, High Flow/Velocity Cannula (ICD-10-PCS; 2024-03-23)
PROC: 02CQ3ZZ Extirpation of Matter from Right Pulmonary Artery, Percutaneous Approach (ICD-10-PCS; 2024-03-25)
PROC: B519YZZ Fluoroscopy of Inferior Vena Cava using Other Contrast (ICD-10-PCS; 2024-03-25)
PROC: B51FYZZ Fluoroscopy of Right Pelvic (Iliac) Veins using Other Contrast (ICD-10-PCS; 2024-03-25)
PROC: B51BYZZ Fluoroscopy of Right Lower Extremity Veins using Other Contrast (ICD-10-PCS; 2024-03-25)
PROC: 4A023N6 Measurement of Cardiac Sampling and Pressure, Right Heart, Percutaneous Approach (ICD-10-PCS; 2024-03-25)
PROC: B31TYZZ Fluoroscopy of Left Pulmonary Artery using Other Contrast (ICD-10-PCS; 2024-03-25)
PROC: B31SYZZ Fluoroscopy of Right Pulmonary Artery using Other Contrast (ICD-10-PCS; 2024-03-25)
PROC: 06H03DZ Insertion of Intraluminal Device into Inferior Vena Cava, Percutaneous Approach (ICD-10-PCS; 2024-03-25)
DX: I26.99 Other pulmonary embolism without acute cor pulmonale (principal); I21.A1 Myocardial infarction type 2; J96.01 Acute respiratory failure with hypoxia; I50.33 Acute on chronic diastolic (congestive) heart failure; N17.0 Acute kidney failure with tubular necrosis; I13.0 Hypertensive heart and chronic kidney disease with heart failure and stage 1 through stage 4 chronic kidney disease, or unspecified chronic kidney disease; I69.354 Hemiplegia and hemiparesis following cerebral infarction affecting left non-dominant side; I82.432 Acute embolism and thrombosis of left popliteal vein; K86.9 Disease of pancreas, unspecified; E78.00 Pure hypercholesterolemia, unspecified; E11.22 Type 2 diabetes mellitus with diabetic chronic kidney disease; E66.9 Obesity, unspecified; N18.30 Chronic kidney disease, stage 3 unspecified; R19.01 Right upper quadrant abdominal swelling, mass and lump; Z79.02 Long term (current) use of antithrombotics/antiplatelets; Z95.828 Presence of other vascular implants and grafts; Z79.01 Long term (current) use of anticoagulants; Z68.31 Body mass index [BMI] 31.0-31.9, adult
CPT/HCPCS: 36415; 36600; 37184; 37191; 71045; 71275; 75825; 76700; 76705; 80048; 80053; 81001; 82805; 82962; 83880; 84484; 85025; 85610; 85730; 86301; 87081; 93005; 93306; 93568; 93970; 94640; 94660; 99152; 99291; C1894; G0378; J2250; J2405; J2543; Q9967